=== PATIENT | female | born 1950 | race Caucasian/White ===

== ENCOUNTER 2018-03-22 10:59 | Emergency (ER) | payer OTHER ==
[~2018-03-22] VITALS: Ht 157.5 cm; Wt 49.9 kg
[~2018-03-22 10:59] MED LIST: CEPH-37 PO; HYDR-2601 PO; LEVO25TA6 PO; PROP60CA34 PO; [UNRECOGNIZED DRUG - CODE] EX
[2018-03-22] MEDS ORDERED: LORazepam 0.5 MG TAB PO ONE (11:30)
[2018-03-22 11:40] LABS: Basophils # (auto) 0.1 uL; Basophils % (auto) 0.8 % (0.0-2.0); Eosinophils # (auto) 0.5 uL; Eosinophils % (auto) 6.6 % (0.0-7.0); Hematocrit 46.5 % (36.0-46.0); Hemoglobin 15.1 g/dL (12.2-16.2); Lymphocytes # (auto) 1.7 uL; Lymphocytes % (auto) 23.4 % (10.0-50.0); Mean Corpuscular Hemoglobin 30.3 pg (28.0-32.0); Mean Corpuscular Hgb Conc. 32.5 g/dL (32.0-36.0); Mean Corpuscular Volume 93.4 fL (80.0-100.0); Monocytes # (auto) 0.6 uL; Monocytes % (auto) 8.5 % (0.0-12.0); Neutrophils # (auto) 4.5 uL; Neutrophils % (auto) 60.7 % (37.0-80.0); Platelet Count (auto) 169 10^3/uL (140-450); Red Blood Cells 4.98 10^6/uL (4.0-5.20); Red Cell Distribution Width 13.8 % (11.8-14.3); White Blood Cell 7.4 10^3/uL (4.4-10.8)
[2018-03-22 12:00] LABS: Albumin 3.8 g/dL (3.4-5.0); Calcium 8.4 mg/dL (8.5-10.1); Potassium 4.3 mmol/L (3.5-5.1)
[2018-03-22 12:05] LABS: Bilirubin, Total 1.4 mg/dL (0.2-1.0); Total Protein 7.2 g/dL (6.4-8.2)
[2018-03-22 12:09] VITALS: BP 132/66
[2018-03-22 12:18] LABS: Urine Bacteria NONE SEEN /hpf (None Seen); Urine Blood Negative /uL (Negative); Urine Mucus FEW (None Seen); Urine Specific Gravity 1.028 (1.001-1.035); Urine WBC 3 /hpf (0 - 5)
== END 2018-03-22 13:34 | disposition home or self-care (01) ==
LOC: ER 11:04
DX: F41.9 Anxiety disorder, unspecified (principal); I10 Essential (primary) hypertension; Z87.891 Personal history of nicotine dependence; Z90.49 Acquired absence of other specified parts of digestive tract; Z90.710 Acquired absence of both cervix and uterus
CPT/HCPCS: 36415; 71046; 80053; 81001; 84484; 85025; 93005

== ENCOUNTER 2019-01-09 21:52 | Emergency (ER) | payer MEDICARE, OTHER, MEDICAID ==
[~2019-01-09] VITALS: Ht 157.5 cm; Wt 49.9 kg
[2019-01-09 22:27] LABS: Basophils # (auto) 0.1 uL; Basophils % (auto) 1.4 % (0.0-2.0); Eosinophils # (auto) 0.6 uL; Eosinophils % (auto) 7.1 % (0.0-7.0); Hematocrit 44.5 % (36.0-46.0); Hemoglobin 15.1 g/dL (12.2-16.2); Lymphocytes % (auto) 34.9 % (10.0-50.0); Mean Corpuscular Hemoglobin 30.9 pg (28.0-32.0); Mean Corpuscular Hgb Conc. 34.1 g/dL (32.0-36.0); Mean Corpuscular Volume 90.6 fL (80.0-100.0); Monocytes # (auto) 0.9 uL; Monocytes % (auto) 10.2 % (0.0-12.0); Neutrophils % (auto) 46.4 % (37.0-80.0); Nucleated Red Blood Cells % 0.2 %; Platelet Count (auto) 156 10^3/uL (140-450); Red Blood Cells 4.91 10^6/uL (4.0-5.20); White Blood Cell 8.6 10^3/uL (4.4-10.8)
[2019-01-09 22:43] LABS: Albumin 4.3 g/dL (3.4-5.0); BUN/Creatinine Ratio 17.1; Calcium 8.9 mg/dL (8.5-10.1); Magnesium 2.3 mg/dL (1.6-2.6); Potassium 4.1 mmol/L (3.5-5.1)
[2019-01-09 22:48] LABS: Bilirubin, Total 1.3 mg/dL (0.2-1.0); Total Protein 7.4 g/dL (6.4-8.2)
[2019-01-10] MEDS ORDERED: PROPRANOLOL HCL 20 MG TAB PO ONE ×2 (00:15)
[2019-01-10] MEDS ORDERED: CEPHALEXIN 250 MG CAP PO ONE (00:30)
[2019-01-10 02:40] VITALS: BP 115/75
== END 2019-01-10 02:40 | disposition left against medical advice (07) ==
LOC: ER 22:01
DX: R07.9 Chest pain, unspecified (principal); F41.9 Anxiety disorder, unspecified; I10 Essential (primary) hypertension; E07.9 Disorder of thyroid, unspecified; Z98.51 Tubal ligation status; Z88.1 Allergy status to other antibiotic agents; Z88.5 Allergy status to narcotic agent; Z88.0 Allergy status to penicillin; Z79.899 Other long term (current) drug therapy; Z90.49 Acquired absence of other specified parts of digestive tract; Z90.710 Acquired absence of both cervix and uterus; Z53.29 Procedure and treatment not carried out because of patient's decision for other reasons
CPT/HCPCS: 36415; 71045; 80053; 83735; 83880; 84443; 84484; 85025; 93005

== ENCOUNTER → 2021-07-17 | Outpatient (CLI) | payer OTHER, MEDICAID, MEDICARE ==
[2021-07-17 10:01] LABS: Basophils # (auto) 0.1 10 ^3/uL (0-0.2); Eosinophils # (auto) 0.9 10 ^3/uL (0-0.8); Eosinophils % (auto) 9.7 % (0.0-7.0); Hematocrit 44.4 % (36.0-46.0); Hemoglobin 14.8 g/dL (12.2-16.2); Lymphocytes % (auto) 21.8 % (10.0-50.0); Mean Corpuscular Hemoglobin 30.8 pg (28.0-32.0); Mean Corpuscular Hgb Conc. 33.2 g/dL (32.0-36.0); Mean Corpuscular Volume 92.8 fL (80.0-100.0); Monocytes % (auto) 10.9 % (0.0-12.0); Neutrophils # (auto) 5.2 10 ^3/uL (1.6-8.6); Neutrophils % (auto) 56.6 % (37.0-80.0); Nucleated Red Blood Cells % 0.4 %; Red Blood Cells 4.79 10^6/uL (4.0-5.20); Red Cell Distribution Width 13.5 % (11.8-14.3); White Blood Cell 9.1 10^3/uL (4.4-10.8)
[2021-07-17 10:39] LABS: Albumin 3.6 g/dL (3.4-5.0); Potassium 4.7 mmol/L (3.5-5.1)
[2021-07-17 10:47] LABS: BUN/Creatinine Ratio 12.9; Bilirubin, Total 1.5 mg/dL (0.2-1.0); Total Protein 7.1 g/dL (6.4-8.2)
[2021-07-17 15:22] LABS: Free T3 2.21 pg/mL (2.3-4.2)
== END | disposition home or self-care (01) ==
LOC: LAB 09:25
PROVIDERS: ATTEND Internal Medicine
DX: I10 Essential (primary) hypertension (principal); E03.9 Hypothyroidism, unspecified; R13.10 Dysphagia, unspecified
CPT/HCPCS: 36415; 80053; 80061; 84439; 84443; 84481; 85025

== ENCOUNTER 2022-05-07 13:54 | Emergency (ER) | payer OTHER, MEDICARE, MEDICAID ==
[~2022-05-07] VITALS: Ht 160 cm; Wt 53.0 kg
[2022-05-07 14:30] VITALS: BP 155/89
[2022-05-07 16:04] LABS: Basophils # (auto) 0.1 10 ^3/uL (0-0.2); Eosinophils # (auto) 0.5 10 ^3/uL (0-0.8); Eosinophils % (auto) 5.3 % (0.0-7.0); Hematocrit 48.2 % (36.0-46.0); Lymphocytes # (auto) 2.6 10 ^3/uL (0.4-5.4); Lymphocytes % (auto) 28.3 % (10.0-50.0); Mean Corpuscular Hemoglobin 31.3 pg (28.0-32.0); Mean Corpuscular Hgb Conc. 33.1 g/dL (32.0-36.0); Mean Corpuscular Volume 94.5 fL (80.0-100.0); Monocytes # (auto) 0.8 10 ^3/uL (0-1.3); Monocytes % (auto) 8.6 % (0.0-12.0); Neutrophils # (auto) 5.1 10 ^3/uL (1.6-8.6); Neutrophils % (auto) 56.8 % (37.0-80.0); Nucleated Red Blood Cells % 0.5 %; Red Cell Distribution Width 13.8 % (11.8-14.3)
[2022-05-07 16:18] LABS: Calcium 9.6 mg/dL (8.5-10.1); Potassium 4.8 mmol/L (3.5-5.1)
[2022-05-07 16:28] LABS: BUN/Creatinine Ratio 18.3
[2022-05-07] MEDS ORDERED: IOHEXOL 350 MG/ML 100ML IJ ONE (16:35)
== END 2022-05-07 18:30 | disposition left against medical advice (07) ==
LOC: ER 13:54
DX: E03.9 Hypothyroidism, unspecified (principal); I10 Essential (primary) hypertension; Z90.49 Acquired absence of other specified parts of digestive tract; Z90.710 Acquired absence of both cervix and uterus; Z87.891 Personal history of nicotine dependence; Z79.899 Other long term (current) drug therapy; Z88.0 Allergy status to penicillin; Z88.1 Allergy status to other antibiotic agents; Z88.5 Allergy status to narcotic agent
CPT/HCPCS: 36415; 70491; 80048; 84439; 84443; 85025; 99285; Q9967

== ENCOUNTER 2022-05-18 10:58 | Emergency (ER) | payer OTHER, MEDICARE, MEDICAID ==
[~2022-05-18] VITALS: Ht 160 cm; Wt 54.3 kg
[2022-05-18 12:16] VITALS: BP 134/89
== END 2022-05-18 14:18 | disposition home or self-care (01) ==
LOC: ER 10:58
DX: I10 Essential (primary) hypertension (principal); Z71.89 Other specified counseling; Z88.5 Allergy status to narcotic agent; Z88.0 Allergy status to penicillin; Z88.1 Allergy status to other antibiotic agents; Z79.899 Other long term (current) drug therapy; Z90.710 Acquired absence of both cervix and uterus; Z90.49 Acquired absence of other specified parts of digestive tract; Z98.890 Other specified postprocedural states

== ENCOUNTER 2022-05-25 13:40 | Emergency (ER) | payer MEDICARE, OTHER, MEDICAID ==
[~2022-05-25] VITALS: Ht 160 cm; Wt 53.0 kg
[2022-05-25 15:12] LABS: Albumin 4.1 g/dL (3.4-5.0); Calcium 8.8 mg/dL (8.5-10.1); Potassium 4.5 mmol/L (3.5-5.1)
[2022-05-25 15:15] LABS: BUN/Creatinine Ratio 16.7; Bilirubin, Total 1.5 mg/dL (0.2-1.0); Total Protein 7.7 g/dL (6.4-8.2)
[2022-05-25 15:23] LABS: Basophils # (auto) 0.1 10 ^3/uL (0-0.2); Basophils % (auto) 1.2 % (0.0-2.0); Eosinophils # (auto) 0.9 10 ^3/uL (0-0.8); Eosinophils % (auto) 10.6 % (0.0-7.0); Hematocrit 44.3 % (36.0-46.0); Hemoglobin 15.5 g/dL (12.2-16.2); Lymphocytes # (auto) 2.2 10 ^3/uL (0.4-5.4); Lymphocytes % (auto) 26.8 % (10.0-50.0); Mean Corpuscular Hemoglobin 32.4 pg (28.0-32.0); Mean Corpuscular Volume 92.6 fL (80.0-100.0); Monocytes # (auto) 0.7 10 ^3/uL (0-1.3); Monocytes % (auto) 7.9 % (0.0-12.0); Neutrophils # (auto) 4.4 10 ^3/uL (1.6-8.6); Neutrophils % (auto) 53.5 % (37.0-80.0); Nucleated Red Blood Cells % 0.2 %; Red Blood Cells 4.78 10^6/uL (4.0-5.20); Red Cell Distribution Width 13.8 % (11.8-14.3); White Blood Cell 8.2 10^3/uL (4.4-10.8)
[2022-05-25 15:57] VITALS: BP 129/79
== END 2022-05-25 15:59 | disposition home or self-care (01) ==
LOC: ER 13:40
DX: E03.9 Hypothyroidism, unspecified (principal); I10 Essential (primary) hypertension; Z90.49 Acquired absence of other specified parts of digestive tract; Z90.710 Acquired absence of both cervix and uterus; Z87.891 Personal history of nicotine dependence; Z79.899 Other long term (current) drug therapy; Z88.0 Allergy status to penicillin; Z88.1 Allergy status to other antibiotic agents; Z88.8 Allergy status to other drugs, medicaments and biological substances
CPT/HCPCS: 36415; 80053; 84443; 85025

== ENCOUNTER → 2022-06-04 | Outpatient (CLI) | payer MEDICARE, OTHER, MEDICAID ==
[2022-06-04 15:00] LABS: Cholesterol 226 mg/dL (< 200); Folate (Folic Acid) 11.2 ng/mL (5.38-24); HDL Cholesterol 49 mg/dL (40-59); LDL Cholesterol 161 mg/dL (< 100); Triglycerides 133 mg/dL (< 150); Urine Bacteria FEW /hpf (None Seen); Urine Blood Negative /uL (Negative); Urine Mucus FEW (None Seen); Urine Specific Gravity 1.028 (1.001-1.035); Urine WBC 9 /hpf (0 - 5)
[2022-06-05 06:23] LABS: RPR Non Reactive (Non Reactive)
== END | disposition home or self-care (01) ==
LOC: LAB 13:29
PROVIDERS: ATTEND Internal Medicine
DX: I10 Essential (primary) hypertension (principal); N39.0 Urinary tract infection, site not specified; E03.9 Hypothyroidism, unspecified
CPT/HCPCS: 36415; 80061; 81001; 82607; 82746; 86592; 87086

== ENCOUNTER 2022-08-08 10:44 | Emergency (ER) | payer MEDICARE, OTHER, MEDICAID ==
[~2022-08-08] VITALS: Ht 160 cm; Wt 53.8 kg
[2022-08-08 11:52] LABS: Basophils # (auto) 0 10 ^3/uL (0-0.2); Basophils % (auto) 0.3 % (0.0-2.0); Eosinophils # (auto) 0.6 10 ^3/uL (0-0.8); Eosinophils % (auto) 5.9 % (0.0-7.0); Hematocrit 44.6 % (36.0-46.0); Hemoglobin 14.9 g/dL (12.2-16.2); Lymphocytes # (auto) 2.7 10 ^3/uL (0.4-5.4); Lymphocytes % (auto) 27.7 % (10.0-50.0); Mean Corpuscular Hemoglobin 31.1 pg (28.0-32.0); Mean Corpuscular Hgb Conc. 33.4 g/dL (32.0-36.0); Mean Corpuscular Volume 93.1 fL (80.0-100.0); Monocytes # (auto) 0.8 10 ^3/uL (0-1.3); Neutrophils # (auto) 5.7 10 ^3/uL (1.6-8.6); Neutrophils % (auto) 58.1 % (37.0-80.0); Nucleated Red Blood Cells % 0.1 %; Red Blood Cells 4.79 10^6/uL (4.0-5.20); Red Cell Distribution Width 13.5 % (11.8-14.3); White Blood Cell 9.7 10^3/uL (4.4-10.8)
[2022-08-08 12:21] LABS: Calcium 8.9 mg/dL (8.5-10.1); Potassium 4.3 mmol/L (3.5-5.1)
[2022-08-08 12:24] LABS: BUN/Creatinine Ratio 13.4 (10.0-20.0); Bilirubin, Total 1.4 mg/dL (0.2-1.0); Total Protein 7.3 g/dL (6.4-8.2)
[2022-08-08 12:54] LABS: Urine Bacteria NONE SEEN /hpf (None Seen); Urine Blood Negative /uL (Negative); Urine Mucus FEW (None Seen); Urine Specific Gravity 1.028 (1.001-1.035); Urine WBC 4 /hpf (0 - 5)
[2022-08-08 13:24] VITALS: BP 108/75
[2022-08-08] MEDS ORDERED: IOHEXOL 350 MG/ML 100ML IJ ONE (14:07)
[2022-08-08] MEDS ORDERED: DexAMETHasone SOD PHOS 10MG/1ML VIAL INJ IV ONE (15:00)
== END 2022-08-08 23:15 | disposition left against medical advice (07) ==
LOC: ER 10:44
DX: R22.1 Localized swelling, mass and lump, neck (principal); R07.89 Other chest pain; I10 Essential (primary) hypertension; E03.9 Hypothyroidism, unspecified; Z90.49 Acquired absence of other specified parts of digestive tract; Z90.710 Acquired absence of both cervix and uterus; Z87.891 Personal history of nicotine dependence; Z79.899 Other long term (current) drug therapy; Z88.0 Allergy status to penicillin; Z88.1 Allergy status to other antibiotic agents; Z88.5 Allergy status to narcotic agent
CPT/HCPCS: 36415; 70491; 71045; 80053; 81001; 83880; 84484; 85025; 85379; 96374; 99285; J1100; Q9967

== ENCOUNTER 2022-08-17 10:24 | Emergency (ER) | payer MEDICARE, OTHER, MEDICAID ==
[~2022-08-17] VITALS: Ht 160 cm; Wt 53.8 kg
[2022-08-17 12:48] VITALS: BP 116/74
== END 2022-08-17 13:36 | disposition home or self-care (01) ==
LOC: ER 10:24
DX: R13.10 Dysphagia, unspecified (principal); I10 Essential (primary) hypertension; Z90.49 Acquired absence of other specified parts of digestive tract; Z90.710 Acquired absence of both cervix and uterus; Z87.891 Personal history of nicotine dependence; Z79.899 Other long term (current) drug therapy; Z88.0 Allergy status to penicillin; Z88.1 Allergy status to other antibiotic agents; Z88.5 Allergy status to narcotic agent

== ENCOUNTER 2022-08-18 12:19 | Emergency (ER) | payer MEDICARE, OTHER, MEDICAID ==
[~2022-08-18] VITALS: Ht 160 cm; Wt 51.3 kg
[2022-08-18 12:38] VITALS: BP 109/62
== END 2022-08-18 16:32 | disposition left against medical advice (07) ==
LOC: ER 12:19
DX: J02.9 Acute pharyngitis, unspecified (principal); Z53.21 Procedure and treatment not carried out due to patient leaving prior to being seen by health care provider

== ENCOUNTER → 2022-09-16 | Outpatient (CLI) | payer MEDICARE, MEDICAID ==
[2022-09-16 15:55] LABS: Urine Bacteria NONE SEEN /hpf (None Seen); Urine Blood Negative /uL (Negative); Urine Specific Gravity 1.019 (1.001-1.035); Urine WBC 1 /hpf (0 - 5)
== END | disposition home or self-care (01) ==
LOC: LAB 15:29
PROVIDERS: ATTEND Nurse Practitioner
DX: N39.0 Urinary tract infection, site not specified (principal)
CPT/HCPCS: 81001; 87086

== ENCOUNTER → 2022-10-12 | Outpatient (CLI) | payer OTHER, MEDICAID | END | disposition home or self-care (01) | LOC: LAB 15:41 | PROVIDERS: ATTEND Internal Medicine | DX: R13.10 Dysphagia, unspecified (principal) | CPT/HCPCS: 36415; 82565; 84520 ==

== ENCOUNTER 2022-11-05 09:25 | Emergency (ER) | payer MEDICARE, OTHER, MEDICAID ==
[~2022-11-05] VITALS: Ht 160 cm; Wt 50.8 kg
[2022-11-05 09:42] VITALS: BP 114/87; PULSE 68; RESP 18; TEMP 97.4; O2SAT 98
[2022-11-05 10:39] LABS: Basophils # (auto) 0.1 10 ^3/uL (0-0.2); Eosinophils # (auto) 0.6 10 ^3/uL (0-0.8); Eosinophils % (auto) 7.2 % (0.0-7.0); Hemoglobin 14.2 g/dL (12.2-16.2); Lymphocytes # (auto) 1.8 10 ^3/uL (0.4-5.4); Lymphocytes % (auto) 23.7 % (10.0-50.0); Mean Corpuscular Hemoglobin 30.9 pg (28.0-32.0); Mean Corpuscular Volume 93.5 fL (80.0-100.0); Monocytes # (auto) 0.6 10 ^3/uL (0-1.3); Monocytes % (auto) 7.4 % (0.0-12.0); Neutrophils # (auto) 4.7 10 ^3/uL (1.6-8.6); Neutrophils % (auto) 60.7 % (37.0-80.0); Nucleated Red Blood Cells % 0.1 %; Red Cell Distribution Width 13.3 % (11.8-14.3); White Blood Cell 7.7 10^3/uL (4.4-10.8)
[2022-11-05 10:58] LABS: Albumin 3.7 g/dL (3.4-5.0); Calcium 9.1 mg/dL (8.5-10.1); Potassium 4.6 mmol/L (3.5-5.1)
[2022-11-05 11:01] LABS: BUN/Creatinine Ratio 14.5 (10.0-20.0); Total Protein 7.2 g/dL (6.4-8.2)
[2022-11-05] MEDS ORDERED: LEV50T PO (11:41)
== END 2022-11-05 11:42 | disposition home or self-care (01) ==
LOC: ER 09:25
DX: E03.9 Hypothyroidism, unspecified (principal); E04.9 Nontoxic goiter, unspecified; I10 Essential (primary) hypertension; F17.210 Nicotine dependence, cigarettes, uncomplicated; Z90.49 Acquired absence of other specified parts of digestive tract; Z90.710 Acquired absence of both cervix and uterus; Z98.890 Other specified postprocedural states; Z88.0 Allergy status to penicillin; Z88.1 Allergy status to other antibiotic agents; Z88.5 Allergy status to narcotic agent; Z79.899 Other long term (current) drug therapy; Z79.1 Long term (current) use of non-steroidal anti-inflammatories (NSAID)
CPT/HCPCS: 36415; 76536; 80053; 84439; 84443; 85025

== ENCOUNTER 2023-01-22 10:18 | Emergency (ER) | payer MEDICARE, OTHER, MEDICAID ==
[~2023-01-22] VITALS: Ht 160 cm; Wt 47.5 kg
[~2023-01-22 10:18] MED LIST changes: +LEV50T PO
[2023-01-22 10:38] VITALS: BP 121/77; PULSE 66; RESP 16; O2SAT 99
[2023-01-22 11:33] LABS: Basophils # (auto) 0.1 10 ^3/uL (0-0.2); Basophils % (auto) 0.9 % (0.0-2.0); Eosinophils # (auto) 0.4 10 ^3/uL (0-0.8); Eosinophils % (auto) 4.4 % (0.0-7.0); Hematocrit 48.4 % (36.0-46.0); Hemoglobin 15.9 g/dL (12.2-16.2); Lymphocytes # (auto) 2.2 10 ^3/uL (0.4-5.4); Lymphocytes % (auto) 26.2 % (10.0-50.0); Mean Corpuscular Hemoglobin 31.3 pg (28.0-32.0); Mean Corpuscular Hgb Conc. 32.8 g/dL (32.0-36.0); Mean Corpuscular Volume 95.3 fL (80.0-100.0); Monocytes # (auto) 0.8 10 ^3/uL (0-1.3); Monocytes % (auto) 9.4 % (0.0-12.0); Neutrophils # (auto) 4.9 10 ^3/uL (1.6-8.6); Neutrophils % (auto) 59.1 % (37.0-80.0); Nucleated Red Blood Cells % 0.2 %; Red Blood Cells 5.08 10^6/uL (4.0-5.20); Red Cell Distribution Width 13.3 % (11.8-14.3); White Blood Cell 8.3 10^3/uL (4.4-10.8)
[2023-01-22 11:51] LABS: Alanine Aminotransferase 10 U/L (7-40); Albumin 4.3 g/dL (3.2-4.8); Alkaline Phosphatase 60 U/L (46-116); Anion Gap 5 (5-15); Aspartate Aminotransferase 20 U/L (13-40); Blood Urea Nitrogen 9 mg/dL (9-23); Calcium 9.6 mg/dL (8.5-10.1); Carbon Dioxide 29 mmol/L (20-30); Chloride 107 mmol/L (98-107); Glucose 82 mg/dL (74-106); Potassium 5.2 mmol/L (3.5-5.1); Sodium 141 mmol/L (136-145)
[2023-01-22 11:52] LABS: Bilirubin, Total 1.7 mg/dL (0.2-1.0); Total Protein 7.2 g/dL (5.7-8.2)
[2023-01-22] MEDS ORDERED: IOHEXOL 350 MG/ML 100ML IJ ONE (14:00)
== END 2023-01-22 14:39 | disposition left against medical advice (07) ==
LOC: ER 10:18
DX: R06.02 Shortness of breath (principal); E87.5 Hyperkalemia; R79.89 Other specified abnormal findings of blood chemistry; I10 Essential (primary) hypertension; Z90.49 Acquired absence of other specified parts of digestive tract; Z90.710 Acquired absence of both cervix and uterus; Z98.51 Tubal ligation status; Z87.440 Personal history of urinary (tract) infections; Z87.891 Personal history of nicotine dependence; Z88.1 Allergy status to other antibiotic agents; Z88.0 Allergy status to penicillin; Z88.8 Allergy status to other drugs, medicaments and biological substances
CPT/HCPCS: 36415; 71046; 76536; 80053; 83880; 84484; 85025; 85379

== ENCOUNTER 2024-11-25 11:09 | Emergency (ER) | payer MEDICARE, OTHER, MEDICAID ==
[~2024-11-25] VITALS: Ht 160 cm; Wt 51.9 kg
[~2024-11-25 11:09] MED LIST changes: -LEV50T PO; +LEVO-848 PO
--- NOTE | 2024-11-25 12:00 | ED.PDOC ---
General HPI Comments A 74-YEAR-OLD FEMALE PRESENTS TO THE ED WITH THE C/C OF SUSPECTED BLADDER INFECTION. PATIENT REPORTS EXPERIENCING ASSOCIATED SYMPTOMS OF BURNING URINATION, URGENCY, FREQUENCY, AND BACK PAIN FOR 3 DAYS. PATIENT HAS NO FURTHER COMPLAINTS AT THIS TIME. PATIENT OTHERWISE DENIES FURTHER ASSOCIATED SYMPTOMS OF NAUSEA, VOMITING, DIARRHEA, DYSURIA, HEMATURIA, OR ABDOMINAL PAIN. PATIENT IS ALERT, ORIENTED X 4, AND HAS STEADY GAIT. Chief Complaint: Urinary Time Seen by MD: 11:27 Primary Care Provider: none Reviewed notes: Nurses Notes, Medications, Allergies Allergies: Coded Allergies: Erythromycin (Verified Allergy, Unknown, 12/13/14) Codeine (Verified Adverse Reaction, Severe, 08/01/13) Gentamicin (Verified Adverse Reaction, Severe, 08/01/13) Penicillins (Verified Adverse Reaction, Severe, 08/01/13) Streptomycin (Verified Adverse Reaction, Severe, 08/01/13) Home Meds Active Scripts Docusate Sodium (Colace) 100 Mg Cap, 1 CAP PO BID, #30 CAP Prov:FERN MCCRARY 11/25/24 Cephalexin Monohydrate (Cephalexin) 500 Mg Cap, 1 CAP PO TID, #21 CAP Prov:FERN MCCRARY 11/25/24 Levothyroxine Sodium (SYNTHROID TABLET) 50 Mcg Tb, 1 TAB PO DAILY, #30 TAB Prov:FERN MCCRARY 11/05/22 Reported Medications Clotrimazole (Topical) (CLOTRIMAZOLE ANTIFUNGAL) 1 %/F Cre, 1 % EX, CRE 08/02/13 Hydrocodone-Acetaminophen (Hydrocodone/Acetaminophen) 1 Tab Tab, 1 TAB PO, TAB 08/02/13 Cephalexin (Keflex) 500 Mg Cap, 500 MG PO QID, CAP 08/02/13 Levothyroxine Sodium (Levothyroxine Sodium) 25 Mcg Tab, 0.05 MCG PO DAILY, TAB 08/02/13 Propranolol Hcl (Inderal La) 60 Mg Cap, 20 MG PO TID, CAP 08/02/13 Information Source: Patient Mode of Arrival: Ambulatory Severity: Moderate Timing: Days Duration: Since onset, Days Prehospital treatment: None Symptoms: Dysuria, Frequency, Urgency, Other (BURNING ) History of: None Location: Other (BACK ) associated signs and symptoms: Back Pain, Dysuria, Frequency, Urgency, Other (BURNING ) Past Medical History PAST MEDICAL HISTORY: HTN, Thyroid, UTI'S Surgical History: BTL, Cholecystectomy, Hernia Repair, Hysterectomy BOTTLE P[employer]ING [employer]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 [employer]ER 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: 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 History Family History Family History: Reviewed,noncontributory to illness Social History Smoker: Non-Smoker, Quit Greater Than 1 Year Alcohol: Denies ETOH Use Drugs: Denies Drug Use Lives In: Home Constitutional: denies: chills, diaphoresis, fatigue, fever, malaise, sweats, weakness, others EENTM: denies: blurred vision, double vision, ear bleeding, ear discharge, ear drainage, ear pain, ear ringing, eye pain, eye redness, hearing loss, mouth pain, mouth swelling, nasal discharge, nose bleeding, nose congestion, nose pain, photophobia, tearing, throat pain, throat swelling, voice changes, others Respiratory: denies: cough, hemoptysis, orthopnea, SOB at rest, shortness of breath, SOB with excertion, stridor, wheezing, others Cardiovascular: denies: chest pain, dizzy spells, diaphoresis, Dyspnea on exertion, edema, irregular heart beat, left arm pain, lightheadedness, palpitations, PND, syncope, others Gastrointestinal: denies: abdomen distended, abdominal pain, blood streaked bowels, constipated, diarrhea, dysphagia, difficulty swallowing, hematemesis, melena, nausea, poor appetite, poor fluid intake, rectal bleeding, rectal pain, vomiting, others Genitourinary: reports: burning, dysuria, frequency, urgency; denies: abnormal vagina bleeding, dyspareunia, flank pain, hematuria, incontinence, pain, , vagina discharge, others Neurological: denies: dizziness, fainting, headache, left sided numbness, left sided weakness, numbness, paresthesia, pre-existing deficit, right sided numbness, right sided weakness, seizure, speech problems, tingling, tremors, weakness, others Musculoskeletal: reports: back pain, muscle pain; denies: gout, joint pain, joint swelling, muscle stiffness, neck pain, others Integumetry: denies: bruises, change in color, change in hair/nails, dryness, laceration, lesions, lumps, rash, wounds, others Allergic/Immunocompromised: denies: Difficulty Healing, Frequent Infections, Hives, Itching, others Hematologic/Lymphatic: denies: anemia, blood clots, easy bleeding, easy bruising, swollen glands, others Endocrine: denies: excessive hunger, excessive sweating, excessive thirst, excessive urination, flushing, intolerance to cold, intolerance to heat, unexplained weight gain, unexplained weight loss, others Psychiatric: denies: anxiety, bipolar disorder, depression, hopeless, panic d isorder, schizophrenia, sleepless, suicidal, others All Other Systems: Reviewed and Negative Physical Exam General Appearance: No Apparent Distress, Normal HEENT: Normal ENT Inspection, PERRL/EOMI, Pharynx Normal, TMs Normal Neck: Full Range of Motion, Non-Tender, Normal, Normal Inspection Respiratory: Chest Non-Tender, Lungs Clear, No Accessory Muscle Use, No Respiratory Distress, Normal Breath Sounds Cardiovascular: No Edema, No JVD, No Murmur, No Gallop, Normal Peripheral Pulses, Regular Rate/Rhythm Breast Exam: Deferred Gastrointestinal: No Organomegaly, Non Tender, No Pulsatile Mass, Normal Bowel Sounds, Soft Genitalia: Deferred Pelvic: Deferred Rectal: Deferred Extremities: No calf tenderness, Normal capillary refill, Normal inspection, Normal range of motion, Non-tender, No pedal edema Musculoskeletal : Location: Bilateral Extremity Location: Back Apperance: Tenderness (LOWER BACK, NO BONY TENDERNESS, SWELLING AND DEFORMITY, NO CVA TENDERNESS. ) Neurologic: Alert, cell tuber hand II-XII nml as Tested, No Motor Deficits, Normal Affect, Normal Mood, No Sensory Deficits Cerebellar Function: Normal Reflexes: Normal Skin: Dry, Normal Color, Warm Peripheral Pulses: 2+ carotid (R), 2+ carotid (L), 2+ dorsalis pedis (R), 2+ dorsalis pedis (L) Lymphatic: No Adenopathy Was a procedure done? Was a procedure done?: No Differential Diagnosis Kidney stone (Female): N/A Urinary Problem (Female): UTI, Vaginitis X-Ray, Labs, Meds, VS Vital Signs Date Time Temp Pulse Resp B/P (MAP) Pulse Ox O2 Delivery O2 Flow Rate FiO2 11/25/24 11:10 97.6 87 18 118/64 96 97.6 Lab Test 11/25/24 12:54 11/25/24 11:36 Range/Units White Blood Count 7.1 4.4-10.8 10^3/uL Red Blood Count 5.15 4.0-5.20 10^6/uL Hemoglobin 15.2 12.2-16.2 g/dL Hematocrit 45.7 36.0-46.0 % Mean Corpuscular Volume 88.8 80.0-100.0 fL Mean Corpuscular Hemoglobin 29.5 28.0-32.0 pg Mean Corpuscular Hemoglobin Concent 33.3 32.0-36.0 g/dL Red Cell Distribution Width 14.5 H 11.8-14.3 % Platelet Count 162 140-450 10^3/uL Mean Platelet Volume 9.2 6.9-10.8 fL Neutrophils (%) (Auto) 61.2 37.0-80.0 % Lymphocytes (%) (Auto) 28.1 10.0-50.0 % Monocytes (%) (Auto) 6.6 0.0-12.0 % Eosinophils (%) (Auto) 3.6 0.0-7.0 % Basophils (%) (Auto) 0.5 0.0-2.0 % Neutrophils # (Auto) 4.4 1.6-8.6 10 ^3/uL Lymphocytes # (Auto) 2.0 0.4-5.4 10 ^3/uL Monocytes # (Auto) 0.5 0-1.3 10 ^3/uL Eosinophils # (Auto) 0.3 0-0.8 10 ^3/uL Basophils # (Auto) 0 0-0.2 10 ^3/uL Nucleated Red Blood Cells 0.1 % Sodium Level 143 136-145 mmol/L Potassium Level 4.6 3.5-5.1 mmol/L Chloride Level 106 98-107 mmol/L Carbon Dioxide Level 32 H 20-31 mmol/L Anion Gap 5 5-15 Blood Urea Nitrogen 12 9-23 mg/dL Creatinine 0.78 0.550-1.02 mg/dL Glomerular Filtration Rate Calc 80 >90 mL/min BUN/Creatinine Ratio 15.4 10.0-20.0 Serum Glucose 90 74-106 mg/dL Calcium Level 9.5 8.7-10.4 mg/dL Thyroid Stimulating Hormone (TSH) Pending Urine Color Yellow Yellow Urine Clarity Clear Clear Urine pH 7.0 5.0-9.0 Urine Specific Sharples 1.020 1.001-1.035 Urine Protein Negative Negative Urine Ketones Negative Negative Urine Blood Negative Negative /uL Urine Nitrite Negative Negative Urine Bilirubin Negative Negative Urine Urobilinogen Normal Negative mg/dL Urine Leukocyte Esterase Trace Negative /uL Urine RBC 1 0 - 4 /hpf Urine Microscopic WBC 3 0-5 /HPF Urine Squamous Epithelial Cells Few <5 /hpf Urine Bacteria Few H None Seen /hpf Urine Mucus Few None Seen Urine Glucose Normal Normal mg/dL [facility] [id number] [facility] [id number] Ph: [phone] DIAGNOSTIC IMAGING Diagnostic Imaging Report : [id number] Signed PATIENT: JANE ESCUDERO ACCT: [id number] UNIT: [id number] : 1950 LOC: ER ROOM / BED: / AGE / SEX: 74 / F ADM STATUS: REG ER SERVICE [id number] ORDERING PHYSICIAN: FERN MCCRARY PROCEDURE(s): ABPL - CT AB PEL WO CON-NO ORAL OR IV REASON: UTI SYMPTOMS ORDER NUMBER(s): [id number], ACCESSION NUMBER(s): [id number] CLINICAL HISTORY: UTI SYMPTOMS TECHNIQUE: CT of the abdomen and pelvis was performed without IV contrast. This exam was performed according to our departmental dose optimization program. Up-to-date CT equipment and radiation dose reduction techniques are utilized as appropriate. CTDI 6 DLP 281 COMPARISON: None FINDINGS: Abdomen/Pelvis: The spleen, pancreas, adrenal glands, liver, and kidneys are grossly unremarkable. The gallbladder and uterus are absent. The bladder is not well distended and therefore not well evaluated. The abdominal aorta is normal in course and caliber. There are mild atherosclerotic calcifications. There is no free intraperitoneal air or fluid. There is no enlarged abdominal pelvic lymph node. There is no bowel wall thickening or dilatation. There has been right colon surgery. There has been partial transverse colon resection with reanastomosis. There is a moderate sized fat containing right paramedian ventral hernia centered just above the umbilicus. There is mild colonic diverticulosis. There is a moderate amount of stool in the colon. Other: The imaged lower thorax demonstrates mild camille lower lung atelectasis and or scar bilaterally arkable. No acute osseous abnormality is evident. Impression: No acute noncontrast CT abnormality of the abdomen/pelvis. Constipation. Previous colonic receptions. Hysterectomy. Cholycystectomy. X-Ray, Labs, Meds, VS Comment EXTERNAL MEDICAL RECORDS REVIEWED: [NONE] INDEPENDENT HISTORIANS: [NONE] SOCIAL DETERMINANTS OF HEALTH: [NONE] LABS ORDERED: UA REVIEWED AND INTERPRETED RESULTS: IMAGING ORDERED: NONE TREATMENTS ORDERED: NONE PROCEDURES PERFORMED: NONE CRITICAL CARE TIME: NONE I HAVE DISCUSSED THE PATIENT WITH THE ATTENDING PHYSICIAN DR. PASCUAL AND SHE AGREES WITH THE PATIENT'S PLAN OF CARE AND DISPOSITION. BASED ON HISTORY OF PRESENT ILLNESS, AND PHYSICAL EXAM, PATIENT WILL BE DISCHARGED HOME. DISCUSSED PLAN FOR DISCHARGE HOME WITH RX [KEFLEX AND COLACE]. MEDICATION WARNINGS GIVEN. SHARED DECISION MAKING: DISCUSSED WITH PATIENT THAT THEIR WORKUP WAS NORMAL. PATIENT INSTRUCTED TO FOLLOW UP WITH PRIMARY CARE PROVIDER IN 1-2 DAYS FOR RE- EVALUATION OF SYMPTOMS. PATIENT VERBALIZES UNDERSTANDING TO RETURN TO ED FOR NEW OR WORSENING SYMPTOMS OR IF FOLLOW UP WITH PCP CANNOT BE OBTAINED. PATIENT FEELS COMFORTABLE GOING HOME AT THIS TIME. ALL QUESTIONS ADDRESSED AT TIME OF DISCHAR GE. Time of 1ST Reevaluation: 14:04 Reevaluation 1ST: Improved Patient Education/Counseling: Diagnosis, Treatment, Need For Follow Up Family Education/Counseling: Diagnosis, Treatment, No Family Present Medical Screening: No EMC Exist At This Time SEPSIS Sepsis Screen Date sepsis recognized/suspect: Nov 25, 2024 Time Sepsis recognized/suspect: 1111 Recent Procedure: No On Antibiotic Therapy: No Respiratory Rate >20: No Heart Rate >90: No Temp<36 C (96.8 F) or >38.3 C: No SBP <90 or MAP <65 mmHG: No New Acute Mental Status Change: No Is the patient on CPAP, BIPAP,: No Physician Orders Ct Ab Pel Wo Con-No Oral Or Iv (11/25/24 12:31) Thyroid Stimulating Hormone (11/25/24 12:32) Vital Signs Date Time Temp Pulse Resp B/P (MAP) Pulse Ox O2 Delivery O2 Flow Rate FiO2 11/25/24 11:10 97.6 87 18 118/64 96 97.6 Laboratory Tests Test 11/25/24 12:54 White Blood Count 7.1 10^3/uL (4.4-10.8) Departure 1 Departure Time of Disposition: 14:04 Impression: Primary Impression: Symptoms of urinary tract infection Additional Impression: Constipation Qualified Codes: K59.00 - Constipation, unspecified Disposition: HOME / SELF CARE / HOMELESS Condition: Stable Additional Instructions: FOLLOW-UP WITH PCP IN 1 TO 2 DAYS. TAKE MEDICATIONS PRESCRIBED. RETURN TO ED FOR ANY NEW OR WORSENING SYMPTOMS. e-Prescriptions Docusate Sodium (Colace) 100 Mg Cap 1 CAP PO BID, #30 CAP Prov: FERN MCCRARY 11/25/24 Cephalexin Monohydrate (Cephalexin) 500 Mg Cap 1 CAP PO TID, #21 CAP Prov: FERN MCCRARY 11/25/24 Discharged With: Self Critical Care Note Critical Care Time?: No Stability Stability form required: No Heart Score Heart Score: Heart Score Response (Comments) Value History N/A 0 EKG N/A 0 Age N/A 0 Risk Factors N/A 0 Troponin N/A 0 Total 0 I personally scribed for FERN MCCRARY ([email or web address]) on 11/25/24 at 12:00. El ectronically submitted by Etelvina Steward ([employer], [employer]). I personally scribed for FERN MCCRARY ([email or web address]) on 11/25/24 at 12:12. E lectronically submitted by Etelvina Steward ([employer], [employer] Secretary). I personally scribed for FERN MCCRARY ([email or web address]) on 11/25/24 at 13:52. Electronically submitted by Etelvina Steward ([employer], [employer] Secretary). FERN MCCRARY Nov 25, 2024 12:00
[2024-11-25 12:21] LABS: Urine Protein, UAD Negative (Negative)
[2024-11-25 13:08] LABS: Hematocrit 45.7 % (36.0-46.0); Hemoglobin 15.2 g/dL (12.2-16.2); Mean Corpuscular Hemoglobin 29.5 pg (28.0-32.0); Mean Corpuscular Volume 88.8 fL (80.0-100.0); Nucleated Red Blood Cells % 0.1 %
--- NOTE | 2024-11-25 13:21 | DVH ---
CLINICAL HISTORY: UTI SYMPTOMS TECHNIQUE: CT of the abdomen and pelvis was performed without IV contrast. This exam was performed ac cording to our departmental dose optimization program. Up-to-date CT equipment and radiation dose red uction techniques are utilized as appropriate. CTDI 6 DLP 281 COMPARISON: None FINDINGS: Abdomen/Pelvis: The spleen, pancreas, adrenal glands, liver, and kidneys are grossly unremarkable. The gallbladder and uterus are absent. The bladder is not well distended and therefore not well evalu ated. The abdominal aorta is normal in course and caliber. There are mild atherosclerotic calcifications. There is no free intraperitoneal air or fluid. There is no enlarged abdominal pelvic lymph node. There is no bowel wall thickening or dilatation. There has been right colon surgery. There has been p artial transverse colon resection with reanastomosis. There is a moderate sized fat containing right paramedian ventral hernia centered just above the umbilicus. There is mild colonic diverticulosis. Th ere is a moderate amount of stool in the colon. Other: The imaged lower thorax demonstrates mild camille lower lung atelectasis and or scar bilaterally arkab le. No acute osseous abnormality is evident. Impression: No acute noncontrast CT abnormality of the abdomen/pelvis. Constipation. Previous colonic receptions. Hysterectomy. Cholycystectomy.
[2024-11-25 13:23] LABS: Chloride 106 mmol/L (98-107); Potassium 4.6 mmol/L (3.5-5.1); Sodium 143 mmol/L (136-145)
[2024-11-25 13:24] LABS: Anion Gap 5 (5-15); Calcium 9.5 mg/dL (8.7-10.4)
[2024-11-25 13:29] LABS: BUN/Creatinine Ratio 15.4 (10.0-20.0); Blood Urea Nitrogen 12 mg/dL (9-23); Glucose 90 mg/dL (74-106)
[2024-11-25 13:42] LABS: Carbon Dioxide 32 mmol/L (20-31)
[2024-11-25] MEDS ORDERED: CEPH500C PO (14:03)
[2024-11-25] MEDS ORDERED: DOCU-94 PO (14:03)
[2024-11-25 14:20] VITALS: BP 119/70; PULSE 66; RESP 18; TEMP 98.3; O2SAT 100
== END 2024-11-25 14:20 | disposition home or self-care (01) ==
LOC: ER 11:09
DX: K59.00 Constipation, unspecified (principal); R68.89 Other general symptoms and signs; R30.0 Dysuria; R35.0 Frequency of micturition; R39.15 Urgency of urination; I10 Essential (primary) hypertension; Z87.891 Personal history of nicotine dependence; Z90.49 Acquired absence of other specified parts of digestive tract; Z88.1 Allergy status to other antibiotic agents; Z88.0 Allergy status to penicillin; Z79.890 Hormone replacement therapy; Z79.899 Other long term (current) drug therapy; Z87.440 Personal history of urinary (tract) infections; Z88.5 Allergy status to narcotic agent; Z90.710 Acquired absence of both cervix and uterus; Z98.890 Other specified postprocedural states
CPT/HCPCS: 36415; 74176; 80048; 81001; 84443; 85025

== ENCOUNTER 2024-12-22 18:37 | Inpatient (IN) | payer MEDICARE, OTHER, MEDICAID ==
[~2024-12-22] VITALS: Ht 160 cm; Wt 50.6 kg
[~2024-12-22 18:37] MED LIST changes: +CEPH500C PO; +DOCU-94 PO
--- NOTE | 2024-12-22 19:05 | ED.PDOC ---
History of Present Illness HPI Comments 74-year-old female came to ER via EMS for shortness a breath. Patient does have history of hypertension and thyroid tumor. For the past 2 days patient has been having shortness a breath, non unprovoked, at rest. Denies any chest pains or palpitations. Denies any nausea or vomiting patient is saturating 98% on room air Chief Complaint: Shortness of Breath Time Seen by MD: 19:05 Primary Care Provider: none Reviewed Notes: Manager Heart Notes Allergies: Coded Allergies: Erythromycin (Verified Allergy, Unknown, 12/13/14) Codeine (Verified Adverse Reaction, Severe, 08/01/13) Gentamicin (Verified Adverse Reaction, Severe, 08/01/13) Penicillins (Verified Adverse Reaction, Severe, 08/01/13) Streptomycin (Verified Adverse Reaction, Severe, 08/01/13) Home Meds Active Scripts Docusate Sodium (Colace) 100 Mg Cap, 1 CAP PO BID, #30 CAP Prov:FERN MCCRARY 11/25/24 Cephalexin Monohydrate (Cephalexin) 500 Mg Cap, 1 CAP PO TID, #21 CAP Prov:FERN MCCRARY 11/25/24 Levothyroxine Sodium (SYNTHROID TABLET) 50 Mcg Tb, 1 TAB PO DAILY, #30 TAB Prov:FERN MCCRARY 11/05/22 Reported Medications Clotrimazole (Topical) (CLOTRIMAZOLE ANTIFUNGAL) 1 %/F Cre, 1 % EX, CRE 08/02/13 Hydrocodone-Acetaminophen (Hydrocodone/Acetaminophen) 1 Tab Tab, 1 TAB PO, TAB 08/02/13 Cephalexin (Keflex) 500 Mg Cap, 500 MG PO QID, CAP 08/02/13 Levothyroxine Sodium (Levothyroxine Sodium) 25 Mcg Tab, 0.05 MCG PO DAILY, TAB 08/02/13 Propranolol Hcl (Inderal La) 60 Mg Cap, 20 MG PO TID, CAP 08/02/13 Information Source: Patient, Emergency Med Personnel Mode of Arrival: EMS Severity: Moderate Timing: Days Duration: Since onset Past Medical History PAST MEDICAL HISTORY: HTN, Thyroid, UTI'S Surgical History: BTL, Cholecystectomy, Hernia Repair, Hysterectomy CATH LAB NURSE History: No Pertinent CATH LAB NURSE History Family History Family History: Reviewed,noncontributory to illness Social History Smoker: Non-Smoker, Quit Greater Than 1 Year Alcohol: Denies ETOH Use Drugs: Denies Drug Use Lives In: Home Constitutional: denies: chills, diaphoresis, fatigue, fever, malaise, sweats, weakness, others EENTM: denies: blurred vision, double vision, ear bleeding, ear discharge, ear drainage, ear pain, ear ringing, eye pain, eye redness, hearing loss, mouth pain, mouth swelling, nasal discharge, nose bleeding, nose congestion, nose pain, photophobia, tearing, throat pain, throat swelling, voice changes, others Respiratory: reports: SOB at rest, shortness of breath; denies: cough, hemoptysis, orthopnea, SOB with excertion, stridor, wheezing, others Cardiovascular: denies: chest pain, dizzy spells, diaphoresis, Dyspnea on exertion, edema, irregular heart beat, left arm pain, lightheadedness, palpitations, PND, syncope, others Gastrointestinal: denies: abdomen distended, abdominal pain, blood streaked bowels, constipated, diarrhea, dysphagia, difficulty swallowing, hematemesis, melena, nausea, poor appetite, poor fluid intake, rectal bleeding, rectal pain, vomiting, others Genitourinary: denies: abnormal vagina bleeding, burning, dyspareunia, dysuria, flank pain, frequency, hematuria, incontinence, pain, , vagina discharge, urgency, others Neurological: denies: dizziness, fainting, headache, left sided numbness, left sided weakness, numbness, paresthesia, pre-existing deficit, right sided numbness, right sided weakness, seizure, speech problems, tingling, tremors, weakness, others Musculoskeletal: denies: back pain, gout, joint pain, joint swelling, muscle pain, muscle stiffness, neck pain, others Integumetry: denies: bruises, change in color, change in hair/nails, dryness, laceration, lesions, lumps, rash, wounds, others Allergic/Immunocompromised: denies: Difficulty Healing, Frequent Infections, Hives, Itching, others Hematologic/Lymphatic: denies: anemia, blood clots, easy bleeding, easy bruising, swollen glands, others Endocrine: denies: excessive hunger, excessive sweating, excessive thirst, excessive urination, flushing, intolerance to cold, intolerance to heat, unexplained weight gain, unexplained weight loss, others Psychiatric: denies: anxiety, bipolar disorder, depression, hopeless, panic disorder, schizophrenia, sleepless, suicidal, others Physical Exam General Appearance: No Apparent Distress, Normal HEENT: Normal ENT Inspection, Pharynx Normal, TMs Normal Neck: Full Range of Motion, Non-Tender, Normal, Normal Inspection Respiratory: Chest Non-Tender, Lungs Clear, No Accessory Muscle Use, No Respiratory Distress, Normal Breath Sounds Cardiovascular: No Edema, No JVD, No Murmur, No Gallop, Normal Peripheral Pulses, Regular Rate/Rhythm Breast Exam: Deferred Gastrointestinal: No Organomegaly, Non Tender, No Pulsatile Mass, Normal Bowel Sounds, Soft Genitalia: Deferred Pelvic: Deferred Rectal: Deferred Extremities: No calf tenderness, Normal capillary refill, Normal inspection, Normal range of motion, Non-tender, No pedal edema Musculoskeletal : Apperance: Normal Neurologic: Alert, berry picker II-XII nml as Tested, No Motor Deficits, Normal Affect, Normal Mood, No Sensory Deficits Cerebellar Function: Normal Reflexes: Normal Skin: Dry, Normal Color, Warm Lymphatic: No Adenopathy Was a procedure done? Was a procedure done?: No EKG EKG : Pulse Rate (adult): 79 Cardiac Rhythm: NSR Hypertrophy: LAE ST: Old, Inf, Infarct Comments Qwave, V1,2,3,4 Differential Dx Considerations may include: Thyroid tumor, anemia, electrolyte imbalance, upper respiratory infection, acs, copd, pneumonia, anxiety, ptx, pleural effusion, lung mass, PE X-Ray, Labs, Meds, VS Vital Signs Date Time Temp Pulse Resp B/P (MAP) Pulse Ox O2 Delivery O2 Flow Rate FiO2 12/22/24 19:05 79 12/22/24 18:54 79 12/22/24 18:43 98.5 84 32 185/74 98 98.5 Lab Test 12/22/24 20:55 12/22/24 19:40 Range/Units Troponin I High Sensitivity 25 31 </=34 ng/L White Blood Count 7.6 4.4-10.8 10^3/uL Red Blood Count 5.08 4.0-5.20 10^6/uL Hemoglobin 15.3 12.2-16.2 g/dL Hematocrit 45.1 36.0-46.0 % Mean Corpuscular Volume 88.8 80.0-100.0 fL Mean Corpuscular Hemoglobin 30.0 28.0-32.0 pg Mean Corpuscular Hemoglobin Concent 33.8 32.0-36.0 g/dL Red Cell Distribution Width 15.0 H 11.8-14.3 % Platelet Count 163 140-450 10^3/uL Mean Platelet Volume 9.0 6.9-10.8 fL Neutrophils (%) (Auto) 62.8 37.0-80.0 % Lymphocytes (%) (Auto) 22.8 10.0-50.0 % Monocytes (%) (Auto) 9.5 0.0-12.0 % Eosinophils (%) (Auto) 4.0 0.0-7.0 % Basophils (%) (Auto) 0.9 0.0-2.0 % Neutrophils # (Auto) 4.8 1.6-8.6 10 ^3/uL Lymphocytes # (Auto) 1.7 0.4-5.4 10 ^3/uL Monocytes # (Auto) 0.7 0-1.3 10 ^3/uL Eosinophils # (Auto) 0.3 0-0.8 10 ^3/uL Basophils # (Auto) 0.1 0-0.2 10 ^3/uL Nucleated Red Blood Cells 0.1 % Sodium Level 144 136-145 mmol/L Potassium Level 3.8 3.5-5.1 mmol/L Chloride Level 105 98-107 mmol/L Carbon Dioxide Level 30 20-31 mmol/L Anion Gap 9 5-15 Blood Urea Nitrogen 6 L 9-23 mg/dL Creatinine 0.91 0.550-1.02 mg/dL Glomerular Filtration Rate Calc 67 >90 mL/min BUN/Creatinine Ratio 6.6 L 10.0-20.0 Serum Glucose 115 H 74-106 mg/dL Calcium Level 9.8 8.7-10.4 mg/dL CHEST RADIOGRAPH Indication: sob Technique: Single frontal view of the chest was obtained Comparison: XY CHEST TWO VIEWS ROUTINE on DOS: 01/22/23, XY CHEST PORTABLE on DOS: 08/08/22, CHEST PORTABLE on DOS: 01/09/19 FINDINGS/IMPRESSION: The lungs are clear. The cardiomediastinal silhouette is unremarkable. No pleural effusion or pneumothorax. No acute osseous abnormality. Time of 1ST Reevaluation: 18:59 Reevaluation 1ST: Unchanged Time of 2ND Reevaluation: 21:33 Reevaluation 2ND: Improved Patient Education/Counseling: Diagnosis, Treatment, Prognosis, Need For Follow Up Family Education/Counseling: No Family Present SEPSIS Sepsis Screen Date sepsis recognized/suspect: Dec 22, 2024 Time Sepsis recognized/suspect: 1844 Recent Procedure: No On Antibiotic Therapy: No Respiratory Rate >20: Yes Heart Rate >90: No Temp<36 C (96.8 F) or >38.3 C: No SBP <90 or MAP <65 mmHG: No New Acute Mental Status Change: No Is the patient on CPAP, BIPAP,: No Physician Orders Electrocardigram (12/22/24 19:01) Continuous Ekg Monitoring 08,12,16,20,00,04 (12/22/24 19:23) Chest Xray 1 View (12/22/24 19:23) Troponin-I Hs (12/22/24 22:23) Vital Signs Date Time Temp Pulse Resp B/P (MAP) Pulse Ox O2 Delivery O2 Flow Rate FiO2 12/22/24 19:05 79 12/22/24 18:54 79 12/22/24 18:43 98.5 84 32 185/74 98 98.5 Laboratory Tests Test 12/22/24 19:40 White Blood Count 7.6 10^3/uL (4.4-10.8) Departure 1 Departure Time of Disposition: 21:34 Impression: Primary Impression: Unstable angina Disposition: ADMITTED INPATIENT Admit to: Tele Condition: Serious Discharged With: Self Critical Care Note Critical Care Time?: Yes (55 min-critical care time only) Critical care comment: Due to concerns for patients condition deteriorating, the care required my highest level of attention and readiness to intervene. I assessed the patient, reviewed the medical records, ordered the appropriate tests and treatments, then reassessed for results and responsiveness. I communicated with medical personnel and consultants and formulated a plan of care. Total critical care time excludes any procedures Patient initially denies having any chest pain reports sudden onset of shortness of breath while she was at rest. However on reassessment patient reports that she was having discomfort in the upper chest area as well as that of throat. She does feel better now but still has some symptoms. All the patient's cardiac workup is autoimmune remarkable however with her ongoing symptoms he will admit her for unstable angina Stability Stability form required: No Heart Score Heart Score: Heart Score Response (Comments) Value History Moderate Suspicious 1 EKG Repolarization Disturb 1 Age >65 2 Risk Factors >3 or Hx ASHD 2 Troponin Normal limit 0 Total 6 I personally scribed for DESTINY SERRANO MD ([facility]) on 12/22/24 at 19:05. Electr onically submitted by Robin Olson ([facility]). I personally scribed for DESTINY SERRANO MD ([facility]) on 12/22/24 at 19:06. Debby ctronically submitted by Robin Olson ([facility]). I personally scribed for DESTINY SERRANO MD ([facility]) on 12/22/24 at 20:41. Electronically submitted by Robin Olson ([facility]). DESTINY SERRANO MD Dec 22, 2024 19:05
[2024-12-22 19:57] LABS: Hematocrit 45.1 % (36.0-46.0); Hemoglobin 15.3 g/dL (12.2-16.2); Mean Corpuscular Hemoglobin 30.0 pg (28.0-32.0); Mean Corpuscular Volume 88.8 fL (80.0-100.0); Nucleated Red Blood Cells % 0.1 %
[2024-12-22 20:15] LABS: Chloride 105 mmol/L (98-107); Potassium 3.8 mmol/L (3.5-5.1); Sodium 144 mmol/L (136-145)
[2024-12-22 20:16] LABS: Anion Gap 9 (5-15); Calcium 9.8 mg/dL (8.7-10.4); Carbon Dioxide 30 mmol/L (20-31)
[2024-12-22 20:21] LABS: BUN/Creatinine Ratio 6.6 (10.0-20.0)
--- NOTE | 2024-12-22 20:21 | DVH ---
CHEST RADIOGRAPH Indication: sob Technique: Single frontal view of the chest was obtained Comparison: XY CHEST TWO VIEWS ROUTINE on DOS: 01/22/23, XY CHEST PORTABLE on DOS: 08/08/22, CHEST POR TABLE on DOS: 01/09/19 FINDINGS/IMPRESSION: The lungs are clear. The cardiomediastinal silhouette is unremarkable. No pleural effusion or pneumo thorax. No acute osseous abnormality.
[2024-12-22 20:22] LABS: Blood Urea Nitrogen 6 mg/dL (9-23); Glucose 115 mg/dL (74-106)
[2024-12-22] MEDS ORDERED: NITROGLYCERIN 0.4 MG SL TAB SL PRN (23:15)
[2024-12-22] MEDS ORDERED: MORPHINE SULFATE INJ 2 MG/ml SYRG IV PRN (23:15)
--- NOTE | 2024-12-22 23:25 | DVHHPRES ---
History of Present Illness Resident Creating Document: SHADY YING RESIDENT History of Present Illness Tiffanie Rosenberg is a 75-year-old female with past medical history of hypertension, hypothyroidism, recurrent UTIs, came to the ED with chief complaints of dysphagia, difficulty swallowing, and feeling weak, fatigued, since 1 month. Patient stated that she also felt short of breath after walking 1 block. She is on room air, and Does not use home oxygen. Patient complains that she feels like she is being "strangled" by the lump in her throat. She also feels dizzy, cold, and has constipation. Patient states that she is able to swallow liquids without trouble but is not able to swallow solid foods, has not eaten solid food since 3 weeks. Patient denies any chest pain, palpitations, dysuria, hematuria, cough, fever, chills. Patient also states that she had a overactive thyroid 30 years ago for which radioactive iodine was given. Patient is admitted for further management. Past surgical history: Bilateral tubal ligation, cholecystectomy, hernia repair, hysterectomy Family history: Reviewed, noncontributory Personal history: Patient denies smoking, drinking, drug use Lives with: Family Review of Systems Constitutional: Yes: Weakness; No: Fever, Chills, Sweats, Malaise, Other Eyes: No: Pain, Vision change, Conjunctivae inflammation, Eyelid inflammation, Other, Redness ENT: Throat pain, Other (Dysphagia); No: Ear pain, Ear discharge, Nose pain, N ose discharge, Nose congestion, Mouth pain, Mouth swelling, Throat swelling Respiratory: Shortness of breath; No: Cough, Dry, SOB with excertion, Wheezing, Hemoptysis, Pleuritic Pain, Sputum, Wheezing, Other Cardiovascular: No: Chest Pain, Palpitations, Orthopnea, Paroxysmal Noc. Dyspnea, Edema, Lt Headedness, Other Gastrointestinal: No: Nausea, Vomiting, Abdominal Pain, Diarrhea, Constipation, Melena, Hematochezia, Other Genitourinary: No Dysuria, No Frequency, No Incontinence, No Hematuria, No Retention, No Other Musculoskeletal: No: other, neck pain, shoulder pain, arm pain, back pain, hand pain, leg pain, foot pain Skin: No: Rash, Lesions, Jaundice, Bruising, Other Neurological: No: Weakness, Numbness, Incoordination, Change in speech, Confusion, Seizures, Other Allergies: Coded Allergies: Erythromycin (Verified Allergy, Unknown, 12/13/14) Codeine (Verified Adverse Reaction, Severe, 08/01/13) Gentamicin (Verified Adverse Reaction, Severe, 08/01/13) Penicillins (Verified Adverse Reaction, Severe, 08/01/13) Streptomycin (Verified Adverse Reaction, Severe, 08/01/13) Medications Current Medications Medications Dose Ordered Sig/Lisa Route Start Time Stop Time Status Last Admin Dose Admin Nitroglycerin 0.4 mg Q5MINP PRN SL 12/22/24 23:15 Morphine Sulfate 2 mg Q30M PRN IV 12/22/24 23:15 Exam Vital Signs Vital Signs Date Time Temp Pulse Resp B/P (MAP) Pulse Ox O2 Delivery O2 Flow Rate FiO2 12/22/24 22:14 98.6 77 16 139/91 (107) 94 98.6 Exam General: Patient alert and oriented in person, place and time. Patient follo wing commands. In moderate distress HEENT: Normocephalic, atraumatic, moist mucous membranes oral cavity appears nor mal, pain on swallowing, lump present in midline of throat Respiratory/pulmonary: Clear lungs bilaterally, vesicular murmurs present in almost all lung miller, no associated crackles or wheezes. Cardiovascular: Normal heart sounds S1 and S2 with no associated murmurs Abdomen: Abdomen nondistended, there is no pain to palpation in any of the abdominal quadrants, no palpable masses. Extremities: There is no peripheral edema present at the lower extremities. Peripheral Pulses: 3+ Radial (R). 3+ Radial (L). 3+ Dorsalis pedis (R). 3+ Dorsalis pedis(L) Skin: No rashes or pruritus, there is no sacral edema present at this time. Neurological: Intact cranial nerves with no focal neurologic deficits Psych/mood: Normal Labs/Xrays Labs Test 12/22/24 20:55 12/22/24 19:40 Range/Units Troponin I High Sensitivity 25 </=34 ng/L White Blood Count 7.6 4.4-10.8 10^3/uL Red Blood Count 5.08 4.0-5.20 10^6/uL Hemoglobin 15.3 12.2-16.2 g/dL Hematocrit 45.1 36.0-46.0 % Mean Corpuscular Volume 88.8 80.0-100.0 fL Mean Corpuscular Hemoglobin 30.0 28.0-32.0 pg Mean Corpuscular Hemoglobin Concent 33.8 32.0-36.0 g/dL Red Cell Distribution Width 15.0 H 11.8-14.3 % Platelet Count 163 140-450 10^3/uL Mean Platelet Volume 9.0 6.9-10.8 fL Neutrophils (%) (Auto) 62.8 37.0-80.0 % Lymphocytes (%) (Auto) 22.8 10.0-50.0 % Monocytes (%) (Auto) 9.5 0.0-12.0 % Eosinophils (%) (Auto) 4.0 0.0-7.0 % Basophils (%) (Auto) 0.9 0.0-2.0 % Neutrophils # (Auto) 4.8 1.6-8.6 10 ^3/uL Lymphocytes # (Auto) 1.7 0.4-5.4 10 ^3/uL Monocytes # (Auto) 0.7 0-1.3 10 ^3/uL Eosinophils # (Auto) 0.3 0-0.8 10 ^3/uL Basophils # (Auto) 0.1 0-0.2 10 ^3/uL Nucleated Red Blood Cells 0.1 % Sodium Level 144 136-145 mmol/L Potassium Level 3.8 3.5-5.1 mmol/L Chloride Level 105 98-107 mmol/L Carbon Dioxide Level 30 20-31 mmol/L Anion Gap 9 5-15 Blood Urea Nitrogen 6 L 9-23 mg/dL Creatinine 0.91 0.550-1.02 mg/dL Glomerular Filtration Rate Calc 67 >90 mL/min BUN/Creatinine Ratio 6.6 L 10.0-20.0 Serum Glucose 115 H 74-106 mg/dL Calcium Level 9.8 8.7-10.4 mg/dL SEPSIS Sepsis Screen Date sepsis recognized/suspect: Dec 22, 2024 Time Sepsis recognized/suspect: 1844 Recent Procedure: No On Antibiotic Therapy: No Respiratory Rate >20: Yes Heart Rate >90: No Temp<36 C (96.8 F) or >38.3 C: No SBP <90 or MAP <65 mmHG: No New Acute Mental Status Change: No Is the patient on CPAP, BIPAP,: No Physician Orders Electrocardigram (12/22/24 19:01) Continuous Ekg Monitoring 08,12,16,20,00,04 (12/22/24 19:23) Chest Xray 1 View (12/22/24 19:23) Admit (12/22/24 23:01) Nitroglycerin Sublingual (Ntrostat Subli (12/22/24 23:15) Morphine Sulfate Injection (12/22/24 23:15) Oxygen By Nasal Cannula (12/22/24 23:01) Stat Ekg For Chest Pain (12/22/24 23:01) Notify Md Of Changes From Base (12/22/24 23:) Powered Bridge Specialist For 24 Hours (12/22/24 23:01) Emergency Dysrhythmia Protocol (12/22/24 23:) Rhythm Strips Once Every Shift (12/22/24 23:01) Vital Signs Date Time Temp Pulse Resp B/P (MAP) Pulse Ox O2 Delivery O2 Flow Rate FiO2 12/22/24 22:14 98.6 77 16 139/91 (107) 94 98.6 12/22/24 19:05 79 12/22/24 18:54 79 12/22/24 18:43 98.5 84 32 185/74 98 98.5 Laboratory Tests Test 12/22/24 19:40 White Blood Count 7.6 10^3/uL (4.4-10.8) Assessment/Plan Assessment/Plan Assessment and plan #Dysphagia to solids more than liquids ?due to thyroid swelling -GI consult -NPO -IV fluids at 75 cc/hour -Chest with IV oral contrast #Thyroid swelling -Ordered TSH, elevated 62.5 -We will order free T3 and T4 -Continue home dose levothyroxine for now and will reassess for increase in the dose # hypothyroidism -resume home meds # Hypertension -resume home meds PPI prophylaxis: Protonix Goals of care addressed with the patient for more than 33 minutes: Full code status Case discussed with , patient and nurse Plan discussed with: Patient Date of Service: Dec 22, 2024 Billing Provider: DANA JHA MD Common Visit Codes: [id number] INP/OBS CARE (HIGH) Secondary Visit Codes: [id number] CARE PLAN 30 MINUTES SHADY YING RESIDENT Dec 22, 2024 23:25 MAKENNA STOUT Dec 23, 2024 08:17
[2024-12-23] VITALS (9 sets, daily range): BP systolic 135–149; BP diastolic 74–95; PULSE 60–87; RESP 16–18; TEMP 97.9–98.3; O2SAT 97–100
--- NOTE | 2024-12-23 02:49 | ECG ---
[facility] Test Date: 2024-12-22 Test Time: 18:54:52 Pat Name: JANE ESCUDERO Department: Room: [facility] [place] Gender: F Gynecologist: CHERIE : 1950 Requested By: DESTINY SERRANO Order Number: [id number] Reading MD: Harley Verduzco Measurements Intervals [place] Rate: 79 P: 55 MI: 157 QRS: -32 QRSD: 91 T: 33 QT: 371 QTc: 426 Interpretive Statements Sinus rhythm Left atrial enlargement Inferior infarct, old Anterior infarct, old Electronically Signed On 12-27-2024 9:27:20 PDT by Harley Verduzco Please click the below link to view image of tracing.
[2024-12-23] MEDS: PANTOPRAZOLE 40 MG/10 ML VIAL INJ IV ONE (03:03)
[2024-12-23] MEDS ORDERED: KETOROLAC TROMETH 30 MG/ML 1ML VIAL IV ONE (04:00)
[2024-12-23 07:23] LABS: Free T3 1.05 pg/mL (2.3-4.2); Free T4 (Free Thyroxine) 0.36 ng/dL (0.89-1.76)
[2024-12-23] MEDS: LEVOTHYROXINE SODIUM 50 MCG TAB PO SCH (09:47)
[2024-12-23 10:36] LABS: INR 1.07 (0.9-1.15); Prothrombin Time 11.3 sec (9.3-11.8)
[2024-12-23] MEDS ORDERED: IOHEXOL 300 MG/ML 100ML BOTTLE IJ ONE (10:50)
--- NOTE | 2024-12-23 11:21 | DVHPN2 ---
Reviewed: Care Plan, H&P, Labs, Medications, Previous Orders, Radiology Changes from previous H/P or p: No Changes Eyes: No Pain, No Vision change, No Conjunctivae inflammation, No Eyelid inflammation, No Other, No Redness ENT: No Ear pain, No Ear discharge, No Nose pain, No Nose discharge, No Nose congestion, No Mouth pain, No Mouth swelling; Throat pain; No Throat swelling; O ther (Dysphagia) Cardiovascular: No Chest Pain, No Palpitations, No Orthopnea, No Paroxysmal Noc. Dyspnea, No Edema, No Lt Headedness, No Other Respiratory: No Cough, No Dry; Shortness of breath; No SOB with excertion, No Wheezing, No Hemoptysis, No Pleuritic Pain, No Sputum, No Other Gastrointestinal: No Nausea, No Vomiting, No Abdominal Pain, No Diarrhea, No Constipation, No Melena, No Hematochezia, No Other Genitourinary: No Dysuria, No Frequency, No Incontinence, No Hematuria, No Retention, No Other Musculoskeletal: No other, No neck pain, No shoulder pain, No arm pain, No back pain, No hand pain, No leg pain, No foot pain Skin: No Rash, No Lesions, No Jaundice, No Bruising, No Other Objective Vitals Vital Signs Date Time Temp Pulse Resp B/P (MAP) Pulse Ox O2 Delivery O2 Flow Rate FiO2 12/23/24 09:00 98.2 79 17 149/83 (105) 99 98.2 12/23/24 08:00 Room Air* 0 21 Intake/Output Intake and Output 12/23/24 07:00 Intake Total 240 ml Balance 240 ml Intake Oral 240 ml # Voids 2 # Bowel Movements 1 Medications Current Medications Medications Dose Ordered Sig/Lisa Route Start Time Stop Time Status Last Admin Dose Admin Nitroglycerin 0.4 mg Q5MINP PRN SL 12/22/24 23:15 Morphine Sulfate 2 mg Q30M PRN IV 12/22/24 23:15 Pantoprazole Sodium 40 mg DAILY IV 12/24/24 10:00 Levothyroxine Sodium 112 mcg QAM@0600 PO 12/24/24 06:00 UNV Levothyroxine Sodium 100 mcg DAILY IV 12/24/24 10:00 UNV Laboratory Results Laboratory Tests 12/22/24 19:40 Chemistry Test 12/22/24 19:40 Calcium Level 9.8 mg/dL (8.7-10.4) Coagulation Test 12/23/24 09:40 Prothrombin Time 11.3 sec (9.3-11.8) Prothrombin Time INR 1.07 (0.9-1.15) Cardiac Markers Test 12/23/24 02:52 B-Type Natriuretic Peptide 16.98 pg/mL (0-100) HgA1c, TSH Test 12/22/24 19:40 Thyroid Stimulating Hormone (TSH) 62.63 uIU/mL (0.55-4.78) H Labs and/or images reviewed: Labs reviewed by me, Image(s) reviewed by me Assessment/Plan Assessment/Plan Acute dysphagia: GI consult for Dr. Valeri Chandra Severe hypothyroidism TSH 62 possibly causing dysphagia: Synthroid 112 mcg p.o. daily plus Synthroid 100 mcg IV daily History of hypothyroidism Hypertension History of recurrent UTI Hypertensive urgency 185/74: Blood pressure meds Plan discussed with: Patient My Orders Orders - CARISSA BARRON MD Procedure Category Date Status Time Thyroid US 12/23/24 Logged 11:13 Levothyroxine Tablet PHA 12/24/24 Logged (Synthroid Tablet) 06:00 Levothyroxine PHA 12/24/24 Logged Injection (Synthroid 10:00 Levothyroxine PHA 12/23/24 Logged Injection (Synthroid 11:15 Date of Service: Dec 23, 2024 Billing Provider: CARISSA BARRON MD Common Visit Codes: [id number] INP/OBS CARE(HIGH) CARISSA BARRON MD Dec 23, 2024 11:21
[2024-12-23] MEDS: LEVOTHYROXINE SODIUM 100 MCG/5 ML INJ IV ONE (11:40)
--- NOTE | 2024-12-23 13:33 | DVH ---
ULTRASOUND SOFT TISSUE HEAD AND NECK CLINICAL INDICATION: Severe hypothyroidism TECHNIQUE: Multiple real time sonographic images of the thyroid were obtained. Comparison: CT S.T. NECK W on DOS: 05/02/24, CT S.T. NECK on DOS: 05/02/24, US THYROID SOFT TISSUE NECK on DOS: 05/02/24, US THYROID SOFT TISSUE NECK on DOS: 02/07/24, CT S.T. NECK W on DOS: 02/01/24 FINDINGS: The right thyroid gland measures 4.2 x 1.2 x 1.0 cm. The left thyroid gland measures approximately 3.9 x 1.4 x 0.8 cm. The isthmus measures 0.1 cm. IMPRESSION: Heterogeneous and atrophic appearance of the thyroid gland. [employer] TI-RADS Categories and Recommendations (2017): TR1: 0 points, Benign, No FNA TR2: 2 points, Not suspicious, No FNA TR3: 3 points, Mildly suspicious, FNA if > or = 2.5 cm, Follow if > or = 1.5 cm TR4: 4-6 points, Moderately Suspicious, FNA if > or = 1.5 cm, Follow if > or = 1.0 cm TR5: 7+ points, Highly Suspicious, FNA if > or = 1.0 cm, Follow if > or = 0.5 cm Follow-up ultrasound guidelines: TR5: yearly for 5 years, if no growth or change in TI-RADS level TR4: at 1, 2, 3 and 5 years, if no growth or change in TI-RADS level TR3: at 1, 3 and 5 years, if no growth or change in TI-RADS level If increased but below threshold for FNA, repeat in one year. Source: ACR Thyroid Imaging, Reporting and Data System (TI-RADS): White Paper of the A[employer] TI-RADS Committee. Marciano et al., J Am Alec Radiol 2017;14:587-595.
[2024-12-23] MEDS: PROPRANOLOL HCL 20 MG TAB PO SCH (14:00)
--- NOTE | 2024-12-23 16:00 | DVHINCON2 ---
Date of service: Dec 23, [address] Shady Phipps Reason for Consultation Dysphagia History of Present Illness Tiffanie Rosenberg is a 75-year-old female with past medical history of hypertension, hypothyroidism, recurrent UTIs, came to the ED with chief complaints of dysphagi a for 3 weeks, difficulty swallowing soliids, and feeling weak, fatigued, since 1 month. Patient stated that she also felt short of breath after walking 1 block. She is on room air, and Does not use home oxygen. Patient complains that she feels like she is being "strangled" by the lump in her throat. She also feels dizzy, cold, and has constipation. Patient states that she is able to swallow liquids without trouble but is not able to swallow solid foods, has not eaten solid food since 3 weeks. Patient denies any chest pain, palpitations, dysuria, hematuria, cough, fever, chills. Patient also states that she had a overactive thyroid 30 years ago for which radioactive iodine was given. Patient is admitted for further management. She has not had any prior endoscopy or colonoscopy Past Medical History hypertension, hypothyroidism, recurrent UTIs, Past Surgical History Past surgical history: Bilateral tubal ligation, cholecystectomy, hernia repair, hysterectomy Family History: Hypertension G8 FATHER Family History Family history: Reviewed, noncontributory Social History Personal history: Patient denies smoking, drinking, drug use Lives with: Family Allergies: Coded Allergies: Erythromycin (Verified Allergy, Unknown, 12/13/14) Codeine (Verified Adverse Reaction, Severe, 08/01/13) Gentamicin (Verified Adverse Reaction, Severe, 08/01/13) Penicillins (Verified Adverse Reaction, Severe, 08/01/13) Streptomycin (Verified Adverse Reaction, Severe, 08/01/13) Home Meds Active Scripts Docusate Sodium (Colace) 100 Mg Cap, 1 CAP PO BID, #30 CAP Prov:FERN MCCRARY 11/25/24 Cephalexin Monohydrate (Cephalexin) 500 Mg Cap, 1 CAP PO TID, #21 CAP Prov:FERN MCCRARY 11/25/24 Levothyroxine Sodium (SYNTHROID TABLET) 50 Mcg Tb, 1 TAB PO DAILY, #30 TAB Prov:FERN MCCRARY 11/05/22 Reported Medications Clotrimazole (Topical) (CLOTRIMAZOLE ANTIFUNGAL) 1 %/F Cre, 1 % EX, CRE 08/02/13 Hydrocodone-Acetaminophen (Hydrocodone/Acetaminophen) 1 Tab Tab, 1 TAB PO, TAB 08/02/13 Cephalexin (Keflex) 500 Mg Cap, 500 MG PO QID, CAP 08/02/13 Levothyroxine Sodium (Levothyroxine Sodium) 25 Mcg Tab, 0.05 MCG PO DAILY, TAB 08/02/13 Propranolol Hcl (Inderal La) 60 Mg Cap, 20 MG PO TID, CAP 08/02/13 Current Medications Current Medications Medications (Trade) Dose Ordered Sig/Lisa Route PRN Reason Start Time Stop Time Status Last Admin Nitroglycerin (Ntrostat Sublingual) 0.4 mg Q5MINP PRN SL FOR CHEST PAIN 12/22/24 23:15 Morphine Sulfate 2 mg Q30M PRN IV FOR CHEST PAIN 12/22/24 23:15 Pantoprazole Sodium (Protonix) 40 mg DAILY IV 12/24/24 10:00 Levothyroxine Sodium (Synthroid Tablet) 50 mcg DAILY@0600 PO 12/23/24 10:00 12/23/24 11:16 DC Levothyroxine Sodium (Synthroid Tablet) 112 mcg QAM@0600 PO 12/24/24 06:00 Levothyroxine Sodium (Synthroid Injection) 100 mcg DAILY IV 12/24/24 10:00 Propranolol HCl (Inderal Tablet) 20 mg TID PO 12/23/24 14:00 12/23/24 14:00 Amlodipine Besylate (Norvasc Tablet) 10 mg DAILY PO 12/24/24 10:00 Vital Signs Vital Signs Date Time Temp Pulse Resp B/P (MAP) Pulse Ox O2 Delivery O2 Flow Rate FiO2 12/23/24 14:00 74 136/80 12/23/24 13:00 97.9 18 97 97.9 12/23/24 08:00 Room Air* 0 21 Physical Exam General: Patient alert and oriented in person, place and time. Patient following commands. In moderate distress HEENT: Normocephalic, atraumatic, moist mucous membranes oral cavity appears normal, pain on swallowing, lump present in midline of throat Respiratory/pulmonary: Clear lungs bilaterally, vesicular murmurs present in almost all lung miller, no associated crackles or wheezes. Cardiovascular: Normal heart sounds S1 and S2 with no associated murmurs Abdomen: Abdomen nondistended, there is no pain to palpation in any of the abdominal quadrants, no palpable masses. Extremities: There is no peripheral edema present at the lower extremities. Peripheral Pulses: 3+ Radial (R). 3+ Radial (L). 3+ Dorsalis pedis (R). 3+ Dorsalis pedis(L) Skin: No rashes or pruritus, there is no sacral edema present at this time. Neurological: Intact cranial nerves with no focal neurologic deficits Psych/mood: Normal Labs/Diagnostic Data Labs Test 12/23/24 09:40 12/23/24 04:21 12/23/24 02:52 12/22/24 19:40 Range/Units Prothrombin Time 11.3 9.3-11.8 sec Prothrombin Time INR 1.07 0.9-1.15 Troponin I High Sensitivity 28 </=34 ng/L B-Type Natriuretic Peptide 16.98 0-100 pg/mL Free Thyroxine (T4) Calculated 0.36 L 0.89-1.76 ng/dL Free Triiodothyronine (T3) pg/mL 1.05 L 2.3-4.2 pg/mL White Blood Count 7.6 4.4-10.8 10^3/uL Red Blood Count 5.08 4.0-5.20 10^6/uL Hemoglobin 15.3 12.2-16.2 g/dL Hematocrit 45.1 36.0-46.0 % Mean Corpuscular Volume 88.8 80.0-100.0 fL Mean Corpuscular Hemoglobin 30.0 28.0-32.0 pg Mean Corpuscular Hemoglobin Concent 33.8 32.0-36.0 g/dL Red Cell Distribution Width 15.0 H 11.8-14.3 % Platelet Count 163 140-450 10^3/uL Mean Platelet Volume 9.0 6.9-10.8 fL Neutrophils (%) (Auto) 62.8 37.0-80.0 % Lymphocytes (%) (Auto) 22.8 10.0-50.0 % Monocytes (%) (Auto) 9.5 0.0-12.0 % Eosinophils (%) (Auto) 4.0 0.0-7.0 % Basophils (%) (Auto) 0.9 0.0-2.0 % Neutrophils # (Auto) 4.8 1.6-8.6 10 ^3/uL Lymphocytes # (Auto) 1.7 0.4-5.4 10 ^3/uL Monocytes # (Auto) 0.7 0-1.3 10 ^3/uL Eosinophils # (Auto) 0.3 0-0.8 10 ^3/uL Basophils # (Auto) 0.1 0-0.2 10 ^3/uL Nucleated Red Blood Cells 0.1 % Sodium Level 144 136-145 mmol/L Potassium Level 3.8 3.5-5.1 mmol/L Chloride Level 105 98-107 mmol/L Carbon Dioxide Level 30 20-31 mmol/L Anion Gap 9 5-15 Blood Urea Nitrogen 6 L 9-23 mg/dL Creatinine 0.91 0.550-1.02 mg/dL Glomerular Filtration Rate Calc 67 >90 mL/min BUN/Creatinine Ratio 6.6 L 10.0-20.0 Serum Glucose 115 H 74-106 mg/dL Calcium Level 9.8 8.7-10.4 mg/dL Thyroid Stimulating Hormone (TSH) 62.63 H 0.55-4.78 uIU/mL Thyroid USG IMPRESSION: Heterogeneous and atrophic appearance of the thyroid gland. CT SCAN ABD PELVIS 12/05/24 Impression: No acute noncontrast CT abnormality of the abdomen/pelvis. Constipation. Previous colonic receptions. Hysterectomy. Cholycystectomy. Problems(with codes): (1) Constipation (2) Shortness of breath (3) Hypothyroidism (4) Difficulty swallowing Plan/Recommendation Plan Start thyroid supplements to current severe hypothyroidism Get a barium swallow x-ray CT scan of the chest is pending, consider CT of the neck Pending correction of for hypothyroidism and reviewing the above imaging studies I will schedule a tentative endoscopy on 12/25 or 12/26/2024 Plan discussed with: Patient, Other (Nurse and Dr Phipps) FREDRICK GUTIERREZ MD Dec 23, 2024 16:00
--- NOTE | 2024-12-23 16:02 | DVH ---
Procedure: CT CHEST WITH CONTRAST Reason for study/Clinical History: dysphagia Comparison Study: XY CHEST XRAY 1 VIEW on DOS: 12/22/24, XY CHEST TWO VIEWS ROUTINE on DOS: 01/22/23, XY CHEST PORTABLE on DOS: 08/08/22, CHEST PORTABLE on DOS: 01/09/19 Exam Date: 12/23/2024 10:57 AM Radiation Dose Information: CT Dose: CTDI volume is 5.17 mGy. Dose-length product is 177.05 mGy*cm TECHNIQUE: After the uneventful administration of intravenous contrast intravenously, CT imaging was performed through the chest. Coronal and sagittal reformations were performed by the technologist. FINDINGS: Lower Neck: Visualized portions of the thyroid gland are unremarkable. Aorta and Vasculature: Normal caliber of thoracic aorta. Lymph Nodes: No enlarged intrathoracic lymph nodes. Mediastinum: Cardiomegaly. Lungs: No focal consolidation, pleural effusion or significant pneumothorax. No suspicious pulmonary nodule or mass. Dependent atelectasis. Musculoskeletal: No acute osseous abnormality. Degenerative changes of the spine. Upper abdomen: Limited portions of the upper abdomen are unremarkable. IMPRESSION: No acute intrathoracic abnormality.
[2024-12-24] VITALS (8 sets, daily range): BP systolic 107–142; BP diastolic 60–74; PULSE 56–69; RESP 17–21; TEMP 97.7–98.9; O2SAT 96–100
[2024-12-24] MEDS: LEVOTHYROXINE SODIUM 112 MCG TAB PO SCH (06:25)
[2024-12-24] MEDS: LEVOTHYROXINE SODIUM 100 MCG/5 ML INJ IV SCH (10:02)
[2024-12-24] MEDS: PANTOPRAZOLE 40 MG/10 ML VIAL INJ IV SCH (10:02)
--- NOTE | 2024-12-24 11:21 | DVHPN2 ---
Reviewed: Care Plan, H&P, Labs, Medications, Previous Orders, Radiology Changes from previous H/P or p: No Changes Eyes: No Pain, No Vision change, No Conjunctivae inflammation, No Eyelid inflammation, No Other, No Redness ENT: No Ear pain, No Ear discharge, No Nose pain, No Nose discharge, No Nose congestion, No Mouth pain, No Mouth swelling; Throat pain; No Throat swelling; O ther (Dysphagia) Cardiovascular: No Chest Pain, No Palpitations, No Orthopnea, No Paroxysmal Noc. Dyspnea, No Edema, No Lt Headedness, No Other Respiratory: No Cough, No Dry; Shortness of breath; No SOB with excertion, No Wheezing, No Hemoptysis, No Pleuritic Pain, No Sputum, No Other Gastrointestinal: No Nausea, No Vomiting, No Abdominal Pain, No Diarrhea, No Constipation, No Melena, No Hematochezia, No Other Genitourinary: No Dysuria, No Frequency, No Incontinence, No Hematuria, No Retention, No Other Musculoskeletal: No other, No neck pain, No shoulder pain, No arm pain, No back pain, No hand pain, No leg pain, No foot pain Skin: No Rash, No Lesions, No Jaundice, No Bruising, No Other Objective Vitals Vital Signs Date Time Temp Pulse Resp B/P (MAP) Pulse Ox O2 Delivery O2 Flow Rate FiO2 12/24/24 10:02 121/70 12/24/24 09:00 98.4 69 18 100 98.4 12/24/24 08:00 Room Air* 0 21 Intake/Output Intake and Output 12/24/24 07:00 Intake Total 1150 ml Balance 1150 ml Intake Oral 1150 ml # Voids 5 # Bowel Movements 1 Medications Current Medications Medications Dose Ordered Sig/Lisa Route Start Time Stop Time Status Last Admin Dose Admin Nitroglycerin 0.4 mg Q5MINP PRN SL 12/22/24 23:15 Morphine Sulfate 2 mg Q30M PRN IV 12/22/24 23:15 Pantoprazole Sodium 40 mg DAILY IV 12/24/24 10:00 12/24/24 10:02 40 MG Levothyroxine Sodium 112 mcg QAM@0600 PO 12/24/24 06:00 12/24/24 06:25 112 MCG Levothyroxine Sodium 100 mcg DAILY IV 12/24/24 10:00 12/24/24 10:02 100 MCG Propranolol HCl 20 mg TID PO 12/23/24 14:00 12/24/24 06:26 20 MG Amlodipine Besylate 10 mg DAILY PO 12/24/24 10:00 12/24/24 10:02 10 MG Laboratory Results Laboratory Tests 12/22/24 19:40 Labs and/or images reviewed: Labs reviewed by me, Image(s) reviewed by me Assessment/Plan Assessment/Plan Acute dysphagia: GI consult for Dr. Valeri Chandra appreciated, CT chest negative, CT neck pending Severe hypothyroidism TSH 62 possibly causing dysphagia: Synthroid 112 mcg p.o. daily plus Synthroid 100 mcg IV daily; thyroid ultrasound shows atrophy of the thyroid History of hypothyroidism Hypertension History of recurrent UTI Hypertensive urgency 185/74: CT neck pending Service consult for PCP in [place] Plan discussed with: Patient My Orders Orders - CARISSA BARRON MD Procedure Category Date Status Time Propranolol Hcl PHA 12/23/24 In Process Tablet (Inderal 14:00 Amlodipine Tablet PHA 12/24/24 In Process (Norvasc Tablet) 10:[address] 12/24/24 Verified 11:15 Date of Service: Dec 24, 2024 Billing Provider: CARISSA BARRON MD Common Visit Codes: [id number] INP/OBS CARE(HIGH) CARISSA BARRON MD Dec 24, 2024 11:21
--- NOTE | 2024-12-24 12:52 | DVH ---
EXAM: CT NECK WITHOUT CONTRAST INDICATION: Dysphagia TECHNIQUE: Volumetric multidetector CT images of the cervical soft tissues were obtained after admini stration of 100 ml low osmolar intravenous contrast. All CT scans at this facility use dose modulatio n, iterative reconstruction, and/or weight based dosing when appropriate to reduce radiation dose to as low as reasonably achievable. COMPARISON: CT S.T. NECK W on DOS: 05/02/24 FINDINGS: [ORBITS, PARANASAL SINUSES, AND SKULL BASE]: Normal. [NASOPHARYNX: Normal. [SUPRAHYOID NECK]: No abnormality of the retropharyngeal spaces or parapharyngeal spaces. Question sl ight undulating contour along the posterior aspect of the base of the tongue consider direct visualiz ation if clinically indicated to exclude malignancy. No discrete measurable mass. The parotid and sub mandibular glands are normal. [INFRAHYOID NECK]: Normal appearance of the larynx, hypopharynx, and supraglottis. [THYROID]: Normal appearance of the thyroid gland. [LYMPH NODES]: There is no pathologically enlarged or necrotic lymph nodes. [VASCULATURE STRUCTURES]: The vascular structures of the neck appear patent. [OTHER]: The visualized lung apices are clear. The limited visualized portions of the brain are unrem arkable. The osseous structures are unremarkable. IMPRESSION: 1. No evidence of cervical mass lesion, pathologically enlarged lymph nodes or fluid collection. 2. Question slight undulating contour along the posterior aspect of the base of the tongue consider d irect visualization if clinically indicated to exclude malignancy. 3. No discrete measurable mass.
--- NOTE | 2024-12-24 14:01 | DVHPN2 ---
Progress Note - Dictate Date Seen: Dec 24, 2024 Medical Necessity Reason Pt with a Central, PICC or Fol: No vital signs Vital Sign Date Time Temp Pulse Resp B/P (MAP) Pulse Ox O2 Delivery O2 Flow Rate FiO2 12/24/24 12:58 98.2 62 18 111/74 (86) 97 98.2 12/24/24 08:00 Room Air* 0 21 Total Intake and Output 12/23/24 12/23/24 12/24/24 15:00 23:00 07:00 Intake Total 400 ml 750 ml Balance 400 ml 750 ml medications Current Medications Medications Dose Ordered Sig/Lisa Route Start Time Stop Time Status Last Admin Dose Admin Nitroglycerin 0.4 mg Q5MINP PRN SL 12/22/24 23:15 Morphine Sulfate 2 mg Q30M PRN IV 12/22/24 23:15 Pantoprazole Sodium 40 mg DAILY IV 12/24/24 10:00 12/24/24 10:02 40 MG Levothyroxine Sodium 112 mcg QAM@0600 PO 12/24/24 06:00 12/24/24 06:25 112 MCG Levothyroxine Sodium 100 mcg DAILY IV 12/24/24 10:00 12/24/24 10:02 100 MCG Propranolol HCl 20 mg TID PO 12/23/24 14:00 12/24/24 06:26 20 MG Amlodipine Besylate 10 mg DAILY PO 12/24/24 10:00 12/24/24 10:02 10 MG objective General: Patient alert and oriented in person, place and time. Patient following commands. In moderate distress HEENT: Normocephalic, atraumatic, moist mucous membranes oral cavity appears normal, pain on swallowing, lump present in midline of throat Respiratory/pulmonary: Clear lungs bilaterally, vesicular murmurs present in almost all lung miller, no associated crackles or wheezes. Cardiovascular: Normal heart sounds S1 and S2 with no associated murmurs Abdomen: Abdomen nondistended, there is no pain to palpation in any of the abdominal quadrants, no palpable masses. Extremities: There is no peripheral edema present at the lower extremities. Peripheral Pulses: 3+ Radial (R). 3+ Radial (L). 3+ Dorsalis pedis (R). 3+ Dorsalis pedis(L) Skin: No rashes or pruritus, there is no sacral edema present at this time. Neurological: Intact cranial nerves with no focal neurologic deficits Psych/mood: Normal laboratory and microbiology Laboratory Tests 12/22/24 19:40 Test 12/22/24 19:40 Range/Units Serum Glucose 115 H 74-106 mg/dL Chest CT IMPRESSION: No acute intrathoracic abnormality. Neck CT IMPRESSION: 1. No evidence of cervical mass lesion, pathologically enlarged lymph nodes or fluid collection. 2. Question slight undulating contour along the posterior aspect of the base of the tongue consider direct visualization if clinically indicated to exclude malignancy. 3. No discrete measurable mass. Problems(with codes): (1) Difficulty swallowing (2) Hypothyroidism (3) Constipation Prognosis Plan Start thyroid supplements to current severe hypothyroidism Get a barium swallow x-ray in am CT neck findings noted I will schedule a tentative endoscopy on 12/25 or 12/26/2024 Dietary Evaluation Review Comments: 1) Refer to speech therapy for swallow evaluation 2) If patient remains NPO > 7 days, consider EN/TPN to meet at least 75% of estimated daily needs 3) Advance to 2g Na diet when medically feasible, pending ST approval 4) Initiate Ensure Enlive bid when medically feasible, pending ST approval 5) Continue to monitor I&O, labs, and skin integrity Expected Outcomes/Goals: 1) patient to receive nutritional support within 7 days of NPO status 2) labs to improve 3) diet to advance 4) f/u in 3-5 days Plan discussed with: Patient FREDRICK GUTIERREZ MD Dec 24, 2024 14:01
[2024-12-25] VITALS (8 sets, daily range): BP systolic 101–135; BP diastolic 63–76; PULSE 54–60; RESP 16–98; TEMP 97.4–98.1; O2SAT 95–100
[2024-12-25 10:24] LABS: Hepatitis B Surface Antigen Negative (Negative)
[2024-12-25] MEDS ORDERED: GASTROGRAFIN 120 ML SOL ONE ×2 (10:49→10:50)
[2024-12-25 11:12] LABS: Hepatitis C Antibody Negative (Negative)
--- NOTE | 2024-12-25 11:56 | DVH ---
XY ESOPHAGUS GASTROGRAFIN SWALLOW, HISTORY: OROPHARYGEAL DYSPHAGIA COMPARISON: CT NECK WITHOUT CONTRAST on DOS: 12/24/24, CT S.T. NECK W on DOS: 05/02/24, CT S.T. NECK on DOS: 05/02/24 PROCEDURE: A gi physician radiograph was obtained prior to the procedure. Gastrografin administered orally, and radiographs were obtained under intermittent fluoroscopic observation. Total fluoroscopic time w as 0.6 minutes. FINDINGS: The esophagus was normal in caliber with no stricture, filling defect or wall irregularity demonstrat ed. Slow esophageal peristalsis was observed. IMPRESSION: Slow esophageal peristalsis, otherwise unremarkable esophagram. Patient only able to tolerate a small amount of contrast.
--- NOTE | 2024-12-25 13:09 | DVHPN2 ---
Reviewed: Care Plan, H&P, Labs, Medications, Previous Orders, Radiology Changes from previous H/P or p: No Changes Eyes: No Pain, No Vision change, No Conjunctivae inflammation, No Eyelid inflammation, No Other, No Redness ENT: No Ear pain, No Ear discharge, No Nose pain, No Nose discharge, No Nose congestion, No Mouth pain, No Mouth swelling; Throat pain; No Throat swelling; O ther (Dysphagia) Cardiovascular: No Chest Pain, No Palpitations, No Orthopnea, No Paroxysmal Noc. Dyspnea, No Edema, No Lt Headedness, No Other Respiratory: No Cough, No Dry; Shortness of breath; No SOB with excertion, No Wheezing, No Hemoptysis, No Pleuritic Pain, No Sputum, No Other Gastrointestinal: No Nausea, No Vomiting, No Abdominal Pain, No Diarrhea, No Constipation, No Melena, No Hematochezia, No Other Genitourinary: No Dysuria, No Frequency, No Incontinence, No Hematuria, No Retention, No Other Musculoskeletal: No other, No neck pain, No shoulder pain, No arm pain, No back pain, No hand pain, No leg pain, No foot pain Skin: No Rash, No Lesions, No Jaundice, No Bruising, No Other Objective Vitals Vital Signs Date Time Temp Pulse Resp B/P (MAP) Pulse Ox O2 Delivery O2 Flow Rate FiO2 12/25/24 11:33 125/76 12/25/24 09:00 98.1 60 16 98 98.1 12/25/24 08:00 Room Air* 0 21 Intake/Output Intake and Output 12/25/24 07:00 Intake Total 1150 ml Output Total 100 ml Balance 1050 ml Intake Oral 1150 ml Output Urine Total 100 ml # Voids 5 # Bowel Movements 3 Medications Current Medications Medications Dose Ordered Sig/Lisa Route Start Time Stop Time Status Last Admin Dose Admin Nitroglycerin 0.4 mg Q5MINP PRN SL 12/22/24 23:15 Morphine Sulfate 2 mg Q30M PRN IV 12/22/24 23:15 Pantoprazole Sodium 40 mg DAILY IV 12/24/24 10:00 12/24/24 10:02 40 MG Levothyroxine Sodium 112 mcg QAM@0600 PO 12/24/24 06:00 12/25/24 05:27 112 MCG Levothyroxine Sodium 100 mcg DAILY IV 12/24/24 10:00 12/24/24 10:02 100 MCG Propranolol HCl 20 mg TID PO 12/23/24 14:00 12/25/24 05:27 20 MG Amlodipine Besylate 10 mg DAILY PO 12/24/24 10:00 12/25/24 11:33 10 MG Laboratory Results Laboratory Tests 12/22/24 19:40 Labs and/or images reviewed: Labs reviewed by me, Image(s) reviewed by me Assessment/Plan Assessment/Plan Acute dysphagia: GI consult for Dr. Valeri Chandra appreciated, CT chest negative, CT neck pending Severe hypothyroidism TSH 62 possibly causing dysphagia: Synthroid 112 mcg p.o. daily plus Synthroid 100 mcg IV daily; thyroid ultrasound shows atrophy of the thyroid History of hypothyroidism Hypertension History of recurrent UTI Hypertensive urgency 185/74: CT neck pending Service consult for PCP in [place] Plan discussed with: Patient My Orders Orders - CARISSA BARRON MD Procedure Category Date Status Time * [employer] CONS 12/24/24 Transmitted Consult Thyroid Stimulating LAB 12/26/24 Verified Hormone 04:00 Date of Service: Dec 25, 2024 Billing Provider: CARISSA BARRON MD Common Visit Codes: [id number] INP/OBS CARE(HIGH) CARISSA BARRON MD Dec 25, 2024 13:09
[2024-12-25] MEDS: HYDROcodone-ACET 5/325MG TAB ONE (14:26)
[2024-12-25] MEDS: HYDROcodone-ACET 5/325MG TAB PO PRN (14:26)
--- NOTE | 2024-12-25 17:31 | DVHPN2 ---
Progress Note Date Seen: Dec 25, 2024 Resident Creating Document: ARSENIO PAREKH RESIDENT Medical Necessity Reason Pt with a Central, PICC or Fol: No Subjective Review of Systems Patient seen and examined at bedside Denies any nausea or vomiting Tolerating clear liquid diet without any difficulty swallowing Last bowel movement day before yesterday Gastrografin shows slow esophageal peristalsis Objective vital signs Vital Sign Date Time Temp Pulse Resp B/P (MAP) Pulse Ox O2 Delivery O2 Flow Rate FiO2 12/25/24:25 58 115/63 12/25/24 13:00 98.0 16 97 98.0 12/25/24 08:00 Room Air* 0 21 Total Intake and Output 12/24/24 12/24/24 12/25/24 15:00 23:00 07:00 Intake Total 550 ml 600 ml Output Total 100 ml Balance 550 ml 500 ml medications Current Medications Medications Dose Ordered Sig/Lisa Route Start Time Stop Time Status Last Admin Dose Admin Nitroglycerin 0.4 mg Q5MINP PRN SL 12/22/24 23:15 Morphine Sulfate 2 mg Q30M PRN IV 12/22/24 23:15 Pantoprazole Sodium 40 mg DAILY IV 12/24/24 10:00 12/25/24 13:29 40 MG Levothyroxine Sodium 112 mcg QAM@0600 PO 12/24/24 06:00 12/25/24 05:27 112 MCG Levothyroxine Sodium 100 mcg DAILY IV 12/24/24 10:00 12/25/24 13:29 100 MCG Propranolol HCl 20 mg TID PO 12/23/24 14:00 12/25/24 14:25 20 MG Amlodipine Besylate 10 mg DAILY PO 12/24/24 10:00 12/25/24 11:33 10 MG Acetaminophen/ Hydrocodone Bitart 1 tab Q6HPRN PRN PO 12/25/24 13:15 12/25/24 14:26 1 TAB Examination General Appearance: Cooperative. Well developed. Well nourished. NAD Pulmonary/Respiratory: Equal bilateral air entry Cardiovascular/Chest: Regular rate and rhythm. No murmurs. No JVD. Abdominal Exam: Normal bowel sounds. Soft. normal abdomen, no visible veins, Nontender. No hepatospenomegaly. No masses Ankle Exam: Negative ankle edema Neuro/Mental Status: A&O x4. Coherent. Thoughts/Psych: Normal thought pattern. Appropriate mood and affect. Good judgement and insight Skin Exam: Normal inspection. Normal color. Warm. Dry laboratory and microbiology Laboratory Tests 12/22/24 19:40 Test 12/22/24 19:40 Range/Units Serum Glucose 115 H 74-106 mg/dL Labs and/or images reviewed: Labs reviewed by me, Image(s) reviewed by me Problem List/Assessment/Plan Problem List/Assessment/Plan Oropharyngeal dysphagia Hypothyroidism, severe Constipation Plan: Thyroid supplementation Gastrografin: Slow esophageal peristalsis CT neck findings noted NPO after midnight Possible EGD tomorrow if patient agreeable, as patient remains hesitant Thank you so much for the opportunity to consult on your patient. GI team will follow the patient. In case of any questions or concerns please feel free to reach out. Plan discussed with Dr. Chandra Plan discussed with: Patient Dietary Evaluation Review Comments: 1) Refer to speech therapy for swallow evaluation 2) If patient remains NPO > 7 days, consider EN/TPN to meet at least 75% of estimated daily needs 3) Advance to 2g Na diet when medically feasible, pending ST approval 4) Initiate Ensure Enlive bid when medically feasible, pending ST approval 5) Continue to monitor I&O, labs, and skin integrity Expected Outcomes/Goals: 1) patient to receive nutritional support within 7 days of NPO status 2) labs to improve 3) diet to advance 4) f/u in 3-5 days ARSENIO PAREKH RESIDENT Dec 25, 2024 17:31
[2024-12-25 21:49] LABS: Urine Protein, UAD Negative (Negative)
[2024-12-26 01:00] VITALS: BP 97/57; PULSE 55; RESP 19; TEMP 97.5; O2SAT 97
[2024-12-26 05:00] VITALS: BP 135/63; PULSE 56; RESP 19; TEMP 97.8; O2SAT 99
[2024-12-26 08:00] VITALS: PULSE 66
[2024-12-26 09:00] VITALS: BP 111/59; PULSE 58; RESP 18; TEMP 97.8; O2SAT 100
[2024-12-26] MEDS ORDERED: LEVO-849 PO (10:13)
[2024-12-26] MEDS ORDERED: AMLO1TAB23 PO (10:13)
--- NOTE | 2024-12-26 10:16 | DVHPN2 ---
Reviewed: Care Plan, H&P, Labs, Medications, Previous Orders, Radiology Changes from previous H/P or p: No Changes Eyes: No Pain, No Vision change, No Conjunctivae inflammation, No Eyelid inflammation, No Other, No Redness ENT: No Ear pain, No Ear discharge, No Nose pain, No Nose discharge, No Nose congestion, No Mouth pain, No Mouth swelling; Throat pain; No Throat swelling; O ther (Dysphagia) Cardiovascular: No Chest Pain, No Palpitations, No Orthopnea, No Paroxysmal Noc. Dyspnea, No Edema, No Lt Headedness, No Other Respiratory: No Cough, No Dry; Shortness of breath; No SOB with excertion, No Wheezing, No Hemoptysis, No Pleuritic Pain, No Sputum, No Other Gastrointestinal: No Nausea, No Vomiting, No Abdominal Pain, No Diarrhea, No Constipation, No Melena, No Hematochezia, No Other Genitourinary: No Dysuria, No Frequency, No Incontinence, No Hematuria, No Retention, No Other Musculoskeletal: No other, No neck pain, No shoulder pain, No arm pain, No back pain, No hand pain, No leg pain, No foot pain Skin: No Rash, No Lesions, No Jaundice, No Bruising, No Other Objective Vitals Vital Signs Date Time Temp Pulse Resp B/P (MAP) Pulse Ox O2 Delivery O2 Flow Rate FiO2 12/26/24 09:00 97.8 58 18 111/59 (76) 100 97.8 12/25/24 19:50 Room Air* 0 21 Intake/Output Intake and Output 12/26/24 07:00 Intake Total 1590 ml Output Total 0 ml Balance 1590 ml Intake Oral 1590 ml Stool Total 0 ml # Voids 6 Medications Current Medications Medications Dose Ordered Sig/Lisa Route Start Time Stop Time Status Last Admin Dose Admin Nitroglycerin 0.4 mg Q5MINP PRN SL 12/22/24 23:15 Morphine Sulfate 2 mg Q30M PRN IV 12/22/24 23:15 Pantoprazole Sodium 40 mg DAILY IV 12/24/24 10:00 12/26/24 09:00 40 MG Levothyroxine Sodium 112 mcg QAM@0600 PO 12/24/24 06:00 12/25/24 05:27 112 MCG Levothyroxine Sodium 100 mcg DAILY IV 12/24/24 10:00 12/26/24 08:59 100 MCG Propranolol HCl 20 mg TID PO 12/23/24 14:00 12/25/24 21:05 20 MG Amlodipine Besylate 10 mg DAILY PO 12/24/24 10:00 12/25/24 11:33 10 MG Acetaminophen/ Hydrocodone Bitart 1 tab Q6HPRN PRN PO 12/25/24 13:15 12/25/24 14:26 1 TAB Laboratory Results Laboratory Tests 12/22/24 19:40 HgA1c, TSH Test 12/26/24 05:21 Thyroid Stimulating Hormone (TSH) 45.42 uIU/mL (0.55-4.78) H Urinalysis Test 12/23/24 20:56 Urine Color Light-yellow (Yellow) Urine Clarity Clear (Clear) Urine pH 5.5 (5.0-9.0) Urine Specific [place] 1.020 (1.001-1.035) Urine Protein Negative (Negative) Urine Ketones Negative (Negative) Urine Blood Negative /uL (Negative) Urine Nitrite Negative (Negative) Urine Bilirubin Negative (Negative) Urine Urobilinogen Normal mg/dL (Negative) Urine Leukocyte Esterase Negative /uL (Negative) Urine RBC <1 /hpf (0 - 4) Urine Microscopic WBC 5 /HPF (0-5) Urine Squamous Epithelial Cells Few /hpf (<5) Urine Bacteria None seen /hpf (None Seen) Urine Glucose Normal mg/dL (Normal) Labs and/or images reviewed: Labs reviewed by me, Image(s) reviewed by me Assessment/Plan Assessment/Plan Acute dysphagia: GI consult for Dr. Valeri Chandra appreciated, CT chest negative, CT neck pending Severe hypothyroidism TSH 62 came down to 40 at the time of discharge possibly causing dysphagia: Treated with Synthroid p.o. and IV History of hypothyroidism Hypertension History of recurrent UTI Hypertensive urgency 185/74: Amlodipine CT neck negative for any acute pathology Patient will follow up with her new primary Dr Dr.Al Amor Plan discussed with: Patient My Orders Orders - CARISSA BARRON MD Procedure Category Date Status Time Hydrocodone-Acet PHA 12/25/24 In Process 5/325mg Tab ([place] 13:15 Urinalysis LAB 12/25/24 Uncollected 20:42 Date of Service: Dec 26, 2024 Billing Provider: CARISSA BARRON MD Common Visit Codes: [id number] INP/OBS CARE(HIGH) CARISSA BARRON MD Dec 26, 2024 10:16
--- NOTE | 2024-12-26 10:20 | DVHDS2 ---
Discharge Summary Date of Admission Dec 22, 2024 at 23:01 Date of Discharge: Dec 26, 2024 Admitting Diagnosis Difficulty swallowing Wounds: none Labs/Diagnostic Data: Laboratory Results Test 12/26/24 05:21 12/23/24 20:56 12/23/24 09:40 12/23/24 04:21 Thyroid Stimulating Hormone (TSH) 45.42 uIU/mL (0.55-4.78) Urine Color Light-yellow (Yellow) Urine Clarity Clear (Clear) Urine pH 5.5 (5.0-9.0) Urine Specific [place] 1.020 (1.001-1.035) Urine Protein Negative (Negative) Urine Ketones Negative (Negative) Urine Blood Negative /uL (Negative) Urine Nitrite Negative (Negative) Urine Bilirubin Negative (Negative) Urine Urobilinogen Normal mg/dL (Negative) Urine Leukocyte Esterase Negative /uL (Negative) Urine RBC <1 /hpf (0 - 4) Urine Microscopic WBC 5 /HPF (0-5) Urine Squamous Epithelial Cells Few /hpf (<5) Urine Bacteria None seen /hpf (None Seen) Urine Glucose Normal mg/dL (Normal) Prothrombin Time 11.3 sec (9.3-11.8) Prothrombin Time INR 1.07 (0.9-1.15) Hepatitis B Surface Antigen Negative (Negative) Hepatitis C Antibody Negative (Negative) Test 12/23/24 02:52 12/22/24 19:40 Troponin I High Sensitivity 28 ng/L (</=34) B-Type Natriuretic Peptide 16.98 pg/mL (0-100) Free Thyroxine (T4) Calculated 0.36 ng/dL (0.89-1.76) Free Triiodothyronine (T3) pg/mL 1.05 pg/mL (2.3-4.2) White Blood Count 7.6 10^3/uL (4.4-10.8) Red Blood Count 5.08 10^6/uL (4.0-5.20) Hemoglobin 15.3 g/dL (12.2-16.2) Hematocrit 45.1 % (36.0-46.0) Mean Corpuscular Volume 88.8 fL (80.0-100.0) Mean Corpuscular Hemoglobin 30.0 pg (28.0-32.0) Mean Corpuscular Hemoglobin Concent 33.8 g/dL (32.0-36.0) Red Cell Distribution Width 15.0 % (11.8-14.3) Platelet Count 163 10^3/uL (140-450) Mean Platelet Volume 9.0 fL (6.9-10.8) Neutrophils (%) (Auto) 62.8 % (37.0-80.0) Lymphocytes (%) (Auto) 22.8 % (10.0-50.0) Monocytes (%) (Auto) 9.5 % (0.0-12.0) Eosinophils (%) (Auto) 4.0 % (0.0-7.0) Basophils (%) (Auto) 0.9 % (0.0-2.0) Neutrophils # (Auto) 4.8 10 ^3/uL (1.6-8.6) Lymphocytes # (Auto) 1.7 10 ^3/uL (0.4-5.4) Monocytes # (Auto) 0.7 10 ^3/uL (0-1.3) Eosinophils # (Auto) 0.3 10 ^3/uL (0-0.8) Basophils # (Auto) 0.1 10 ^3/uL (0-0.2) Nucleated Red Blood Cells 0.1 % Sodium Level 144 mmol/L (136-145) Potassium Level 3.8 mmol/L (3.5-5.1) Chloride Level 105 mmol/L (98-107) Carbon Dioxide Level 30 mmol/L (20-31) Anion Gap 9 (5-15) Blood Urea Nitrogen 6 mg/dL (9-23) Creatinine 0.91 mg/dL (0.550-1.02) Glomerular Filtration Rate Calc 67 mL/min (>90) BUN/Creatinine Ratio 6.6 (10.0-20.0) Serum Glucose 115 mg/dL (74-106) Calcium Level 9.8 mg/dL (8.7-10.4) Other Laboratory Tests 12/22/24 19:40 Brief Hx & Hospital Course: 74-year-old female with a history of hypertension and hypothyroidism came in complaining of difficulty swallowing. TSH was 62 diagnosed with a severe hypothyroidism treated with the IV and p.o. Synthroid improved to TSH 40. GI consult by Dr. Valeri Chandra CT chest negative CT neck is negative thyroid ultrasound shows atrophic thyroid Gastrografin study negative blood pressure was high 185 treated with the amlodipine patient feels better and wants to go home. 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 aVleri Chandra Operations or Procedures Thyroid ultrasound CT neck CT chest Gastrografin study Condition at Discharge: Fair Final Diagnosis/Problems List Acute dysphagia: GI consult for Dr. Valeri Chandra appreciated, CT chest negative, CT neck pending Severe hypothyroidism TSH 62 came down to 40 at the time of discharge possibly causing dysphagia: Treated with Synthroid p.o. and IV History of hypothyroidism Hypertension History of recurrent UTI Hypertensive urgency 185/74: Amlodipine CT neck negative for any acute pathology Discharge Disposition: Home Discharge Instruct/Medications Diet: Cardiac 2g Na,low cholest Activity: Light activity Follow Up/Referral: Use medications as prescribed Follow up with your new primary Dr Dr. Heller next one week You may need referral to an laborer cutting tool Medications: Synthroid Amlodipine Transmitted to pharmacy Scheduled Amlodipine Besylate (Amlodipine Besylate), 1 TAB PO DAILY Cephalexin (Keflex), 500 MG PO QID, (Reported) Cephalexin Monohydrate (Cephalexin), 1 CAP PO TID Docusate Sodium (Colace), 1 CAP PO BID Levothyroxine Sodium (Levothyroxine Sodium), 0.05 MCG PO DAILY, (Reported) Levothyroxine Sodium (Synthroid Tablet), 1 TAB PO DAILY Levothyroxine Sodium (Synthroid Tablet), 1.5 TAB PO DAILY Propranolol Hcl (Inderal La), 20 MG PO TID, (Reported) Miscellaneous Medications Clotrimazole (Topical) (Clotrimazole Antifungal), 1 % EX, (Reported) Hydrocodone-Acetaminophen (Hydrocodone/Acetaminophen), 1 TAB PO, (Reported) 35 (Time taken for discharge summary 35 minutes) Discharge Statement: "Patient was advised to return to the ER or call 911 if any headaches, dizziness, shortness of breath, chest pain, abdominal pain, bleeding, fevers, or worsening of medical condition. Patient was counseled about treatment plan, medications, possible side effects, patientverbalized understanding. All questions were answered to the best of my ability. This discharge took greater then 30 minutes in planning, reviewing documentation, counseling the patient, and discussing with other team members." ASSESSMENT ASSESSMENT Hospital Course Improved Assessment Acute dysphagia: GI consult for Dr. Valeri Chandra appreciated, CT chest negative, CT neck pending Severe hypothyroidism TSH 62 came down to 40 at the time of discharge possibly causing dysphagia: Treated with Synthroid p.o. and IV History of hypothyroidism Hypertension History of recurrent UTI Hypertensive urgency 185/74: Amlodipine CT neck negative for any acute pathology Date of Service: Dec 26, 2024 Billing Provider: CARISSA BARRON MD Common Visit Codes: [id number]-GNI/OBS DISCH DAY >30min CARISSA BARRON MD Dec 26, 2024 10:20
== END 2024-12-26 11:44 | disposition home or self-care (01) | DRG 645 ==
LOC: EDBD 18:37 → ER 18:37 → OVERFLOW 23:01 → TELE-WESTW 12-23 01:52
PROVIDERS: ADMIT Family Medicine; ATTEND Family Medicine
DX: E03.9 Hypothyroidism, unspecified (principal); R13.12 Dysphagia, oropharyngeal phase; I16.0 Hypertensive urgency; K59.00 Constipation, unspecified; I10 Essential (primary) hypertension; Z88.1 Allergy status to other antibiotic agents; Z88.4 Allergy status to anesthetic agent; Z88.0 Allergy status to penicillin; Z79.2 Long term (current) use of antibiotics; Z79.899 Other long term (current) drug therapy; Z90.710 Acquired absence of both cervix and uterus; Z90.49 Acquired absence of other specified parts of digestive tract; Z98.51 Tubal ligation status; Z87.440 Personal history of urinary (tract) infections; Z82.49 Family history of ischemic heart disease and other diseases of the circulatory system
CPT/HCPCS: 36415; 70490; 71045; 71260; 74220; 76536; 80048; 81001; 83880; 84439; 84443; 84481; 84484; 85025; 85610; 86803; 87340; 93005; 99291; G0378; J2470; J3490

== ENCOUNTER 2025-01-29 12:42 | Inpatient (IN) | payer MEDICARE, OTHER, MEDICAID ==
[~2025-01-29] VITALS: Ht 160 cm; Wt 48.5 kg
[~2025-01-29 12:42] MED LIST changes: +AMLO1TAB23 PO; +LEVO-849 PO
--- NOTE | 2025-01-29 13:16 | ED.PDOC ---
Musculoskeletal HPI Comments This is a 74 year old female presenting to the ED with chief complaint of bilateral foot swelling. Patient reports that she has been experiencing bilateral foot swelling with associated pain and mild intermittent SOB for the past 3 days. Patient denies any chest pain, dizziness, headache, N/V, syncope, cough, fall, or injury. Chief Complaint: Extremity Swelling Time Seen by MD: 13:15 Primary Care Provider: none Reviewed Notes: Nurses Notes, Medications, Allergies Allergies: Coded Allergies: Erythromycin (Verified Allergy, Unknown, 12/13/14) Gentamicin (Verified Adverse Reaction, Severe, 08/01/13) Penicillins (Verified Adverse Reaction, Severe, 08/01/13) Streptomycin (Verified Adverse Reaction, Severe, 08/01/13) Home Meds Active Scripts Levothyroxine Sodium (SYNTHROID TABLET) 100 Mcg Tb, 1.5 TAB PO DAILY, #90 TAB 5 Refills Prov:CARISSA BARRON MD 12/26/24 Amlodipine Besylate (Amlodipine Besylate) 10 Mg Tab, 1 TAB PO DAILY, #30 TAB 5 Refills Prov:CARISSA BARRON MD 12/26/24 Docusate Sodium (Colace) 100 Mg Cap, 1 CAP PO BID, #30 CAP Prov:FERN MCCRARY 11/25/24 Cephalexin Monohydrate (Cephalexin) 500 Mg Cap, 1 CAP PO TID, #21 CAP Prov:FERN MCCRARY 11/25/24 Levothyroxine Sodium (SYNTHROID TABLET) 50 Mcg Tb, 1 TAB PO DAILY, #30 TAB Prov:FERN MCCRARY 11/05/22 Reported Medications Clotrimazole (Topical) (CLOTRIMAZOLE ANTIFUNGAL) 1 %/F Cre, 1 % EX, CRE 08/02/13 Hydrocodone-Acetaminophen (Hydrocodone/Acetaminophen) 1 Tab Tab, 1 TAB PO, TAB 08/02/13 Cephalexin (Keflex) 500 Mg Cap, 500 MG PO QID, CAP 08/02/13 Levothyroxine Sodium (Levothyroxine Sodium) 25 Mcg Tab, 0.05 MCG PO DAILY, TAB 08/02/13 Propranolol Hcl (Inderal La) 60 Mg Cap, 20 MG PO TID, CAP 08/02/13 Information Source: Patient Mode of Arrival: Ambulatory Location: Bilateral Extremity Location: Foot Timing: Days Prehospital treatment: None Severity: Moderate Able to Move Extremity: Yes Bear Weight: Fully Pain: Moderate Mechanism: Spontaneous Circumstances: Spontaneous Onset of Symptoms: Spontaneous Symptoms: Swelling, Pain DVT Risk Factors: NONE Past Medical History PAST MEDICAL HISTORY: HTN, Thyroid, UTI'S Past Medical History (Other): Mitral Valve Prolapse Surgical History: BTL, Cholecystectomy, Hernia Repair, Hysterectomy 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 UPHOLSTERER History: Denies all CHAIR UPHOLSTERER Hx, No Pertinent CHAIR UPHOLSTERER History Family History Family History: Reviewed,noncontributory to illness Social History Smoker: Non-Smoker, Quit Greater Than 1 Year Alcohol: Denies ETOH Use Drugs: Denies Drug Use Lives In: Home Constitutional: denies: chills, diaphoresis, fatigue, fever, malaise, sweats, weakness, others EENTM: denies: blurred vision, double vision, ear bleeding, ear discharge, ear drainage, ear pain, ear ringing, eye pain, eye redness, hearing loss, mouth pain, mouth swelling, nasal discharge, nose bleeding, nose congestion, nose pain, photophobia, tearing, throat pain, throat swelling, voice changes, others Respiratory: reports: shortness of breath; denies: cough, hemoptysis, orthopnea, SOB at rest, SOB with excertion, stridor, wheezing, others Cardiovascular: reports: edema; denies: chest pain, dizzy spells, diaphoresis, Dyspnea on exertion, irregular heart beat, left arm pain, lightheadedness, palpitations, PND, syncope, others Gastrointestinal: denies: abdomen distended, abdominal pain, blood streaked bowels, constipated, diarrhea, dysphagia, difficulty swallowing, hematemesis, melena, nausea, poor appetite, poor fluid intake, rectal bleeding, rectal pain, vomiting, others Genitourinary: denies: abnormal vagina bleeding, burning, dyspareunia, dysuria, flank pain, frequency, hematuria, incontinence, pain, , vagina disch arge, urgency, others Neurological: denies: dizziness, fainting, headache, left sided numbness, left sided weakness, numbness, paresthesia, pre-existing deficit, right sided numbness, right sided weakness, seizure, speech problems, tingling, tremors, weakness, others Musculoskeletal: reports: others (Bilateral foot pain); denies: back pain, gout, joint pain, joint swelling, muscle pain, muscle stiffness, neck pain Integumetry: denies: bruises, change in color, change in hair/nails, dryness, laceration, lesions, lumps, rash, wounds, others Allergic/Immunocompromised: denies: Difficulty Healing, Frequent Infections, Hives, Itching, others Hematologic/Lymphatic: denies: anemia, blood clots, easy bleeding, easy bruising, swollen glands, others Endocrine: denies: excessive hunger, excessive sweating, excessive thirst, excessive urination, flushing, intolerance to cold, intolerance to heat, unexplained weight gain, unexplained weight loss, others Psychiatric: denies: anxiety, bipolar disorder, depression, hopeless, panic disorder, schizophrenia, sleepless, suicidal, others All Other Systems: Reviewed and Negative Physical Exam General Appearance: No Apparent Distress, Normal HEENT: Normal ENT Inspection, PERRL/EOMI, Pharynx Normal, TMs Normal Neck: Full Range of Motion, Non-Tender, Normal, Normal Inspection Respiratory: Chest Non-Tender, Lungs Clear, No Accessory Muscle Use, No Respiratory Distress, Normal Breath Sounds Cardiovascular: No Edema, No JVD, No Murmur, No Gallop, Normal Peripheral Pulses, Regular Rate/Rhythm Breast Exam: Deferred Gastrointestinal: No Organomegaly, Non Tender, No Pulsatile Mass, Normal Bowel Sounds, Soft Genitalia: Deferred Pelvic: Deferred Rectal: Deferred Extremities: Leg edema, Normal capillary refill, Normal inspection, Normal range of motion, Non-tender, Pedal edema, Swelling, Tender Musculoskeletal : Apperance: Normal Neurologic: Alert, planer operator / grader II-XII nml as Tested, No Motor Deficits, Normal Affect, Normal Mood, No Sensory Deficits Cerebellar Function: Normal Reflexes: Normal Skin: Dry, Normal Color, Warm Peripheral Pulses: 1+ carotid (R), 1+ carotid (L) Lymphatic: No Adenopathy Was a procedure done? Was a procedure done?: No Differential Diagnosis EXT Differential Diagnosis: CHF, Deep Vein Thrombosis, Other Other Differential Diagnosis Pulmonary embolism X-Ray, Labs, Meds, VS Vital Signs Date Time Temp Pulse Resp B/P (MAP) Pulse Ox O2 Delivery O2 Flow Rate FiO2 01/29/25 19:50 Room Air* 0 21 01/29/25 15:58 113 01/29/25 15:16 98.2 112 16 131/69 (89) 100 98.2 01/29/25 12:44 98.5 121 15 125/70 96 98.5 Lab Test 01/29/25 15:53 01/29/25 13:17 Range/Units Urine Color Yellow Yellow Urine Clarity Turbid H Clear Urine pH 5.5 5.0-9.0 Urine Specific [place] 1.019 1.001-1.035 Urine Protein 1+ H Negative Urine Ketones Negative Negative Urine Blood Negative Negative /uL Urine Nitrite Negative Negative Urine Bilirubin Negative Negative Urine Urobilinogen Normal Negative mg/dL Urine Leukocyte Esterase Trace Negative /uL Urine RBC 3 0 - 4 /hpf Urine Microscopic WBC 6 H 0-5 /HPF Urine Squamous Epithelial Cells Few <5 /hpf Urine Calcium Oxalate Crystals Mod None Seen Urine Bacteria None seen None Seen /hpf Urine Hyaline Casts Few 0 - 2 /lpf Urine Mucus Few None Seen Urine Glucose Normal Normal mg/dL White Blood Count 7.5 4.4-10.8 10^3/uL Red Blood Count 4.85 4.0-5.20 10^6/uL Hemoglobin 14.5 12.2-16.2 g/dL Hematocrit 43.1 36.0-46.0 % Mean Corpuscular Volume 88.8 80.0-100.0 fL Mean Corpuscular Hemoglobin 29.9 28.0-32.0 pg Mean Corpuscular Hemoglobin Concent 33.6 32.0-36.0 g/dL Red Cell Distribution Width 13.8 11.8-14.3 % Platelet Count 188 140-450 10^3/uL Mean Platelet Volume 9.3 6.9-10.8 fL Neutrophils (%) (Auto) 53.1 37.0-80.0 % Lymphocytes (%) (Auto) 25.9 10.0-50.0 % Monocytes (%) (Auto) 18.7 H 0.0-12.0 % Eosinophils (%) (Auto) 1.6 0.0-7.0 % Basophils (%) (Auto) 0.7 0.0-2.0 % Neutrophils # (Auto) 4.0 1.6-8.6 10 ^3/uL Lymphocytes # (Auto) 1.9 0.4-5.4 10 ^3/uL Monocytes # (Auto) 1.4 H 0-1.3 10 ^3/uL Eosinophils # (Auto) 0.1 0-0.8 10 ^3/uL Basophils # (Auto) 0 0-0.2 10 ^3/uL Nucleated Red Blood Cells 0.0 % D-Dimer, Quantitative 1.26 H 0.0-0.49 mg/L FEU Sodium Level 143 136-145 mmol/L Potassium Level 3.8 3.5-5.1 mmol/L Chloride Level 106 98-107 mmol/L Carbon Dioxide Level 27 20-31 mmol/L Anion Gap 10 5-15 Blood Urea Nitrogen 12 9-23 mg/dL Creatinine 0.76 0.550-1.02 mg/dL Glomerular Filtration Rate Calc 83 >90 mL/min BUN/Creatinine Ratio 15.8 10.0-20.0 Serum Glucose 127 H 74-106 mg/dL Calcium Level 10.1 8.7-10.4 mg/dL Magnesium Level 2.0 1.6-2.6 mg/dL Total Bilirubin 2.4 H 0.2-1.0 mg/dL Aspartate Amino Transferase (AST) 72 H 13-40 U/L Alanine Aminotransferase (ALT) 96 H 7-40 U/L Alkaline Phosphatase 84 46-116 U/L Troponin I High Sensitivity 36 *H </=34 ng/L B-Type Natriuretic Peptide 51.26 0-100 pg/mL Total Protein 7.0 5.7-8.2 g/dL Albumin 4.4 3.2-4.8 g/dL Thyroid Stimulating Hormone (TSH) 0.02 L 0.55-4.78 uIU/mL Current Medications Medications (Trade) Dose Ordered Sig/Lisa Route Start Time Stop Time Status Last Admin Aspirin 162 mg ONCE ONCE PO 01/29/25 13:15 01/29/25 13:16 DC 01/29/25 15:35 [place] [id number] Ph: [phone] DIAGNOSTIC IMAGING Diagnostic Imaging Report : [id number] Signed PATIENT: JANE ESCUDERO ACCT: [id number] UNIT: [id number] : 1950 LOC: ER ROOM / BED: / AGE / SEX: 74 / F ADM STATUS: REG ER SERVICE 1308 ORDERING PHYSICIAN: STEPHANIE DONALD MD PROCEDURE(s): CXR2 - CHEST TWO VIEWS ROUTINE REASON: SOB ORDER NUMBER(s): [id number], ACCESSION NUMBER(s): [id number] XY CHEST TWO VIEWS ROUTINE CLINICAL HISTORY: SOB COMPARISON: XY CHEST TWO VIEWS ROUTINE on DOS: 01/22/23 TECHNIQUE: Frontal and lateral view of the chest was obtained FINDINGS: Lines and Tubes: None Lungs: No focal consolidation. Pleura: No effusion. No pneumothorax. Cardiomediastinal contours: Unremarkable Bones: No acute osseous abnormality. IMPRESSION: 1. No acute cardiopulmonary disease. 2. No significant change from 12/22/2024 ATED BY: SHEFALI RM Jr., DO DICTATED DATE/TIME: 01/29/251347 SIGNED BY: SHEFALI RM Jr., SIGNED DATE/TIME: 01/29/251347 CC: X-Ray, Labs, Meds, VS Comment Course in the emergency department eventful patient came in because of swelling extremity and shortness of breath her feet are swollen very painful The blood pressure is 125/70 the pulse is 121 The chest x-ray is negative EKG sinus tachycardia at 1:13 a.m. left atrial enlargement and left axis deviation Troponin 36 CBC negative D-dimer 1.26 elevated patient will be sent for CT angio no pulmonary embolism BNP 51. TSH 0. 0 two Magnesium 2.0 Liver enzymes elevated total bilirubin 2.4 Blood sugar 127 Patient will be admitted for further care Images Reviewed?: Images reviewed and evaluated by me Time of 1ST Reevaluation: 14:14 Reevaluation 1ST: Unchanged Time of 2ND Reevaluation: 19:45 Reevaluation 2ND: Unchanged Patient Education/Counseling: Diagnosis, Treatment, Prognosis Family Education/Counseling: Diagnosis, Treatment, Prognosis, No Family Present Departure 1 Departure Time of Disposition: 21:51 Impression: Primary Impression: Shortness of breath Additional Impressions: Tricuspid regurgitation Qualified Codes: I07.1 - Rheumatic tricuspid insufficiency Fluid retention in legs Elevated d-dimer Hyperbilirubinemia Iatrogenic hyperthyroidism Disposition: ADMITTED INPATIENT Admit to: [facility] Condition: Serious Critical Care Note Critical Care Time?: No Stability Stability form required: Yes Heart Score Heart Score: Heart Score Response (Comments) Value History Moderate Suspicious 1 EKG Normal 0 Age >65 2 Risk Factors 1 or 2 risk factors 1 Troponin 1-2 x's Normal limit 1 Total 5 I personally scribed for STEPHANIE DONALD MD ([email or web address]) on 01/29/25 at 13:16. Electronically submitted by Kamran Danielle ([email or web address]). I personally scribed for STEPHANIE DONALD MD ([email or web address]) on 01/29/25 at 13:57. Electronically submitted by Kamran Danielle ([email or web address]). STEPHANIE DONALD MD Jan 29, 2025 13:16
[2025-01-29 13:29] LABS: Hematocrit 43.1 % (36.0-46.0); Hemoglobin 14.5 g/dL (12.2-16.2); Mean Corpuscular Hemoglobin 29.9 pg (28.0-32.0); Mean Corpuscular Volume 88.8 fL (80.0-100.0); Nucleated Red Blood Cells % 0.0 %
[2025-01-29 13:42] LABS: Albumin 4.4 g/dL (3.2-4.8); Alkaline Phosphatase 84 U/L (46-116); Anion Gap 10 (5-15); BUN/Creatinine Ratio 15.8 (10.0-20.0); Blood Urea Nitrogen 12 mg/dL (9-23); Calcium 10.1 mg/dL (8.7-10.4); Carbon Dioxide 27 mmol/L (20-31); Chloride 106 mmol/L (98-107); Magnesium 2.0 mg/dL (1.6-2.6); Potassium 3.8 mmol/L (3.5-5.1); Sodium 143 mmol/L (136-145); Total Protein 7.0 g/dL (5.7-8.2)
[2025-01-29 13:43] LABS: Alanine Aminotransferase 96 U/L (7-40); Glucose 127 mg/dL (74-106)
[2025-01-29 13:44] LABS: Bilirubin, Total 2.4 mg/dL (0.2-1.0)
--- NOTE | 2025-01-29 13:51 | DVH ---
XY CHEST TWO VIEWS ROUTINE CLINICAL HISTORY: SOB COMPARISON: XY CHEST TWO VIEWS ROUTINE on DOS: 01/22/23 TECHNIQUE: Frontal and lateral view of the chest was obtained FINDINGS: Lines and Tubes: None Lungs: No focal consolidation. Pleura: No effusion. No pneumothorax. Cardiomediastinal contours: Unremarkable Bones: No acute osseous abnormality. IMPRESSION: 1. No acute cardiopulmonary disease. 2. No significant change from 12/22/2024
[2025-01-29 16:14] LABS: Urine Protein, UAD 1+ (Negative)
[2025-01-29] MEDS: SODIUM CHLORIDE 0.9% 1,000 ML IV ONE (16:28)
[2025-01-29] MEDS: IOHEXOL 350 MG/ML 100ML IJ ONE (18:32)
--- NOTE | 2025-01-29 20:35 | DVH ---
EXAM: CT CT ANGIO CHEST CONTRAST History: Pulmonary embolism Comparison Study: CT CHEST WITH CONTRAST on DOS: 12/23/24, CT NECK WITH CONTRAST SOFT on DOS: 08/08/22 TECHNIQUE: A digital activities director scouting image was obtained. During the uneventful, intravenous administration of c ontrast material, multislice data acquisition was obtained through the chest. 3-D postprocessing is performed by technologist including MIP imaging Radiation Dose : CTDI vol 6.14 mGy, DLP 251.69 mGy*cm. Findings: Evaluation is degraded by respiratory motion. Lungs: There is scattered mild atelectasis/ scarring. Pleura: Unremarkable Heart/Great vessels: No cardiomegaly or pericardial effusion. No CT evidence of acute pulmonary embol ism. Moderate atherosclerotic aortic calcifications. Mediastinum: Unremarkable. Soft tissues/Bones: Unremarkable Upper abdomen: Prior cholecystectomy with unchanged biliary ductal dilatation. Impression: 1. No CT evidence of pulmonary embolism or acute intrathoracic abnormality. Incidental findings as d etailed.
[2025-01-29] MEDS: PROPRANOLOL HCL 20 MG TAB PO SCH (22:00)
[2025-01-29] MEDS ORDERED: ONDANSETRON HCL 4 MG/2 ML VIAL IV PRN (22:00)
--- NOTE | 2025-01-29 22:47 | DVHHP2 ---
History of Present Illness Reason for Visit: Lower extremity swelling History of Present Illness 74-year-old female presents for evaluation of bilateral lower extremity swelling. Patient reports a three day history of worsening bilateral lower extremity with mild shortness for breath. Patient also reports intermittent palpitations. No chest pain at the moment. No other acute complaints. Past Medical History Thyroid, hypertension, mitral valve prolapse Past Surgical History Cholecystectomy, BTL, hernia repair Family History Noncontributory Smoke: No ALCOHOL: none Drugs: None Lives: with Family Review of Systems Review of Systems Review of systems are currently negative otherwise addressed in HPI. Allergies: Coded Allergies: Erythromycin (Verified Allergy, Unknown, 12/13/14) Gentamicin (Verified Adverse Reaction, Severe, 08/01/13) Penicillins (Verified Adverse Reaction, Severe, 08/01/13) Streptomycin (Verified Adverse Reaction, Severe, 08/01/13) Medications Current Medications Medications Dose Ordered Sig/Lisa Route Start Time Stop Time Status Last Admin Dose Admin Propranolol HCl 20 mg TID PO 01/29/25 22:00 Amlodipine Besylate 10 mg DAILY PO 01/30/25 10:00 Aspirin 81 mg DAILY PO 01/30/25 10:00 Ondansetron HCl 4 mg Q4HP PRN IV 01/29/25 22:00 Acetaminophen 650 mg Q6HP PRN PO 01/29/25 22:00 Exam Vital Signs Vital Signs Date Time Temp Pulse Resp B/P (MAP) Pulse Ox O2 Delivery O2 Flow Rate FiO2 01/29/25 20:21 97.6 132 16 146/76 (99) 99 97.6 01/29/25 19:50 Room Air* 0 21 Exam Gen: 74-year-old female in no apparent distress. Skin: Warm, dry, normal color and texture, no rash. HEENT: Normocephalic atraumatic, mucous membranes moist and pink. Neck: Cervical and supraclavicular nodes normal without enlargement, trachea is midline, thyroid gland is normal without masses. Pulmonary: Clear to auscultation and percussion bilaterally. Cardiac: Regular rate and rhythm. No murmur Abdomen: Soft, nontender, nondistended, bowel sounds present all 4 quadrants, no guarding, no rigidity, no organomegaly. Extremities: No cyanosis, clubbing, trace edema on bilateral lower extremities Neuro: Cranial nerves II through XII grossly intact, normal affect and speech, no focal motor deficits. Labs/Xrays ORDERING PHYSICIAN: CARISSA BARRON MD PROCEDURE(s): NKICT - NECK WITHOUT CONTRAST REASON: Dysphagia ORDER NUMBER(s): [id number], ACCESSION NUMBER(s): [id number] EXAM: CT NECK WITHOUT CONTRAST INDICATION: Dysphagia TECHNIQUE: Volumetric multidetector CT images of the cervical soft tissues were obtained after administration of 100 ml low osmolar intravenous contrast. All CT scans at this facility use dose modulation, iterative reconstruction, and/or weight based dosing when appropriate to reduce radiation dose to as low as reasonably achievable. COMPARISON: CT S.T. NECK W on DOS: 05/02/24 FINDINGS: [ORBITS, PARANASAL SINUSES, AND SKULL BASE]: Normal. [NASOPHARYNX: Normal. [SUPRAHYOID NECK]: No abnormality of the retropharyngeal spaces or parapharyngeal spaces. Question slight undulating contour along the posterior aspect of the base of the tongue consider direct visualization if clinically indicated to exclude malignancy. No discrete measurable mass. The parotid and submandibular glands are normal. [INFRAHYOID NECK]: Normal appearance of the larynx, hypopharynx, and supraglottis. [THYROID]: Normal appearance of the thyroid gland. [LYMPH NODES]: There is no pathologically enlarged or necrotic lymph nodes. [VASCULATURE STRUCTURES]: The vascular structures of the neck appear patent. [OTHER]: The visualized lung apices are clear. The limited visualized portions of the brain are unremarkable. The osseous structures are unremarkable. IMPRESSION: 1. No evidence of cervical mass lesion, pathologically enlarged lymph nodes or fluid collection. 2. Question slight undulating contour along the posterior aspect of the base of the tongue consider direct visualization if clinically indicated to exclude malignancy. 3. No discrete measurable mass. RING PHYSICIAN: CARISSA BARRON MD PROCEDURE(s): THYDU - THYROID REASON: Severe hypothyroidism ORDER NUMBER(s): [id number], ACCESSION NUMBER(s): [id number] ULTRASOUND SOFT TISSUE HEAD AND NECK CLINICAL INDICATION: Severe hypothyroidism TECHNIQUE: Multiple real time sonographic images of the thyroid were obtained. Comparison: CT S.T. NECK W on DOS: 05/02/24, CT S.T. NECK on DOS: 05/02/24, US THYROID SOFT TISSUE NECK on DOS: 05/02/24, US THYROID SOFT TISSUE NECK on DOS: 02/07/24, CT S.T. NECK W on DOS: 02/01/24 FINDINGS: The right thyroid gland measures 4.2 x 1.2 x 1.0 cm. The left thyroid gland measures approximately 3.9 x 1.4 x 0.8 cm. The isthmus measures 0.1 cm. IMPRESSION: Heterogeneous and atrophic appearance of the thyroid gland. [employer] TI-RADS Categories and Recommendations (2017): TR1: 0 points, Benign, No FNA TR2: 2 points, Not suspicious, No FNA TR3: 3 points, Mildly suspicious, FNA if > or = 2.5 cm, Follow if > or = 1.5 cm TR4: 4-6 points, Moderately Suspicious, FNA if > or = 1.5 cm, Follow if > or = 1.0 cm TR5: 7+ points, Highly Suspicious, FNA if > or = 1.0 cm, Follow if > or = 0.5 cm Follow-up ultrasound guidelines: TR5: yearly for 5 years, if no growth or change in TI-RADS level TR4: at 1, 2, 3 and 5 years, if no growth or change in TI-RADS level TR3: at 1, 3 and 5 years, if no growth or change in TI-RADS level If increased but below threshold for FNA, repeat in one year. Source: ACR Thyroid Imaging, Reporting and Data System (TI-RADS): White Paper of the ACR TI-RADS Committee. Destineeler et al., J Am Alec Radiol 2017;14:587-595. ATED BY: RALPH REGAN MD ORDERING PHYSICIAN: STEPHANIE DONALD MD PROCEDURE(s): CXR2 - CHEST TWO VIEWS ROUTINE REASON: SOB ORDER NUMBER(s): [id number], ACCESSION NUMBER(s): [id number] XY CHEST TWO VIEWS ROUTINE CLINICAL HISTORY: SOB COMPARISON: XY CHEST TWO VIEWS ROUTINE on DOS: 01/22/23 TECHNIQUE: Frontal and lateral view of the chest was obtained FINDINGS: Lines and Tubes: None Lungs: No focal consolidation. Pleura: No effusion. No pneumothorax. Cardiomediastinal contours: Unremarkable Bones: No acute osseous abnormality. IMPRESSION: 1. No acute cardiopulmonary disease. 2. No significant change from 12/22/2024 ATED BY: SHEFALI RM Jr., DO DICTATED DATE/TIME: 01/29/251347 SIGNED BY: SHEFALI RM Jr., SIGNED DATE/TIME: 01/29/258 CC: ORDERING PHYSICIAN: STEPHANIE DONALD MD PROCEDURE(s): CTACH - CT ANGIO CHEST CONTRAST REASON: Pulmonary embolism ORDER NUMBER(s): [id number], ACCESSION NUMBER(s): [id number] EXAM: CT CT ANGIO CHEST CONTRAST History: Pulmonary embolism Comparison Study: CT CHEST WITH CONTRAST on DOS: 12/23/24, CT NECK WITH CONTRAST SOFT on DOS: 08/08/22 TECHNIQUE: A digital laboratory director image was obtained. During the uneventful, intrave nous administration of contrast material, multislice data acquisition was obtained through the chest. 3-D postprocessing is performed by technologist including MIP imaging Radiation Dose : CTDI vol 6.14 mGy, DLP 251.69 mGy*cm. Findings: Evaluation is degraded by respiratory motion. Lungs: There is scattered mild atelectasis/ scarring. Pleura: Unremarkable Heart/Great vessels: No cardiomegaly or pericardial effusion. No CT evidence of acute pulmonary embolism. Moderate atherosclerotic aortic calcifications. Mediastinum: Unremarkable. Soft tissues/Bones: Unremarkable Upper abdomen: Prior cholecystectomy with unchanged biliary ductal dilatation. Impression: 1. No CT evidence of pulmonary embolism or acute intrathoracic abnormality. Incidental findings as detailed. Labs Test 01/29/25 20:44 01/29/25 15:53 01/29/25 13:17 Range/Units Troponin I High Sensitivity 31 </=34 ng/L Urine Color Yellow Yellow Urine Clarity Turbid H Clear Urine pH 5.5 5.0-9.0 Urine Specific [place] 1.019 1.001-1.035 Urine Protein 1+ H Negative Urine Ketones Negative Negative Urine Blood Negative Negative /uL Urine Nitrite Negative Negative Urine Bilirubin Negative Negative Urine Urobilinogen Normal Negative mg/dL Urine Leukocyte Esterase Trace Negative /uL Urine RBC 3 0 - 4 /hpf Urine Microscopic WBC 6 H 0-5 /HPF Urine Squamous Epithelial Cells Few <5 /hpf Urine Calcium Oxalate Crystals Mod None Seen Urine Bacteria None seen None Seen /hpf Urine Hyaline Casts Few 0 - 2 /lpf Urine Mucus Few None Seen Urine Glucose Normal Normal mg/dL White Blood Count 7.5 4.4-10.8 10^3/uL Red Blood Count 4.85 4.0-5.20 10^6/uL Hemoglobin 14.5 12.2-16.2 g/dL Hematocrit 43.1 36.0-46.0 % Mean Corpuscular Volume 88.8 80.0-100.0 fL Mean Corpuscular Hemoglobin 29.9 28.0-32.0 pg Mean Corpuscular Hemoglobin Concent 33.6 32.0-36.0 g/dL Red Cell Distribution Width 13.8 11.8-14.3 % Platelet Count 188 140-450 10^3/uL Mean Platelet Volume 9.3 6.9-10.8 fL Neutrophils (%) (Auto) 53.1 37.0-80.0 % Lymphocytes (%) (Auto) 25.9 10.0-50.0 % Monocytes (%) (Auto) 18.7 H 0.0-12.0 % Eosinophils (%) (Auto) 1.6 0.0-7.0 % Basophils (%) (Auto) 0.7 0.0-2.0 % Neutrophils # (Auto) 4.0 1.6-8.6 10 ^3/uL Lymphocytes # (Auto) 1.9 0.4-5.4 10 ^3/uL Monocytes # (Auto) 1.4 H 0-1.3 10 ^3/uL Eosinophils # (Auto) 0.1 0-0.8 10 ^3/uL Basophils # (Auto) 0 0-0.2 10 ^3/uL Nucleated Red Blood Cells 0.0 % D-Dimer, Quantitative 1.26 H 0.0-0.49 mg/L FEU Sodium Level 143 136-145 mmol/L Potassium Level 3.8 3.5-5.1 mmol/L Chloride Level 106 98-107 mmol/L Carbon Dioxide Level 27 20-31 mmol/L Anion Gap 10 5-15 Blood Urea Nitrogen 12 9-23 mg/dL Creatinine 0.76 0.550-1.02 mg/dL Glomerular Filtration Rate Calc 83 >90 mL/min BUN/Creatinine Ratio 15.8 10.0-20.0 Serum Glucose 127 H 74-106 mg/dL Calcium Level 10.1 8.7-10.4 mg/dL Magnesium Level 2.0 1.6-2.6 mg/dL Total Bilirubin 2.4 H 0.2-1.0 mg/dL Aspartate Amino Transferase (AST) 72 H 13-40 U/L Alanine Aminotransferase (ALT) 96 H 7-40 U/L Alkaline Phosphatase 84 46-116 U/L B-Type Natriuretic Peptide 51.26 0-100 pg/mL Total Protein 7.0 5.7-8.2 g/dL Albumin 4.4 3.2-4.8 g/dL Thyroid Stimulating Hormone (TSH) 0.02 L 0.55-4.78 uIU/mL SEPSIS Sepsis Screen Date sepsis recognized/suspect: Jan 29, 2025 Time Sepsis recognized/suspect: 1245 Recent Procedure: No On Antibiotic Therapy: No Respiratory Rate >20: No Heart Rate >90: Yes Temp<36 C (96.8 F) or >38.3 C: No SBP <90 or MAP <65 mmHG: No New Acute Mental Status Change: No Is the patient on CPAP, BIPAP,: No Physician Orders Ct Angio Chest Contrast (01/29/25 16:14) Admit (01/29/25 19:59) Propranolol Hcl Tablet (Inderal Tablet) (01/29/25 22:00) Amlodipine Tablet (Norvasc Tablet) (01/30/25 10:00) Thyroid Panel (01/29/25 21:49) Aspirin Tablet (01/30/25 10:00) Basic Metabolic Panel (01/30/25 04:00) Ondansetron Hcl (Zofran) (01/29/25 22:00) Cardiac Diet-2gna,Lofat,Lochol (01/30/25 Breakfast) Echo 2d Mode Cardiac Dop (01/29/25 21:49) Condition: Fair (01/29/25 21:49) Acetaminophen Tablet (Tylenol Tablet) (01/29/25 22:00) Bedrest With Bathroom Privileg (01/29/25 21:49) Bilat Lower Dvt (01/29/25 22:41) Vital Signs Date Time Temp Pulse Resp B/P (MAP) Pulse Ox O2 Delivery O2 Flow Rate FiO2 01/29/25 20:21 97.6 132 16 146/76 (99) 99 97.6 01/29/25 19:50 Room Air* 0 21 01/29/25 15:58 113 01/29/25 15:16 98.2 112 16 131/69 (89) 100 98.2 Laboratory Tests Test 01/29/25 13:17 White Blood Count 7.5 10^3/uL (4.4-10.8) Medications Medications Dose Ordered Sig/Lisa Route Start Time Stop Time Status Last Admin Dose Admin Aspirin 162 mg ONCE ONCE PO 01/29/25 13:15 01/29/25 13:16 DC 01/29/25 15:35 162 MG Assessment/Plan Assessment/Plan Assessment Hyperthyroid Mild troponin elevation Lower extremity edema Hypertension Plan Admit the patient to [facility] to the hospitalist Echocardiogram pending Thyroid panel pending Hold levothyroxine Continue treatment per orders. Plan discussed with: Patient My Orders Orders - ANGLE WATTS Procedure Category Date Status Time Admit ADMIT 01/29/25 Transmitted 19:59 Propranolol Hcl PHA 01/29/25 In Process Tablet (Inderal 22:00 Amlodipine Tablet PHA 01/30/25 In Process (Norvasc Tablet) 10:00 Thyroid Panel LAB 01/29/25 In Process 21:49 Aspirin Tablet PHA 01/30/25 In Process 10:00 Basic Metabolic Panel LAB 01/30/25 Verified 04:00 Ondansetron Hcl PHA 01/29/25 In Process (Zofran) 22:00 Cardiac DIET 01/30/25 Transmitted Diet-2gna,Lofat,Lochol Breakfast Echo 2d Mode Cardiac US 01/29/25 Logged DOP 21:49 Condition: Fair MARA 01/29/25 In Process 21:49 Acetaminophen Tablet PHA 01/29/25 In Process (Tylenol Tablet) 22:00 Bedrest With Bathroom MARA 01/29/25 In Process Privileg 21:49 Bilat Lower Dvt US 01/29/25 Verified 22:41 Date of Service: Jan 29, 2025 Billing Provider: ANGLE WATTS Common Visit Codes: [id number] INP/OBS CARE (HIGH) ANGLE WATTS AGACNP Jan 29, 2025 22:47
--- NOTE | 2025-01-29 23:13 | DVH ---
Bilateral lower extremity venous duplex Clinical History: r/o dvt Comparison: None Technique: Duplex Doppler evaluation of the deep venous systems of both lower extremities from the common femora l veins to the popliteal veins including color Doppler and spectral/pulsed waveform analysis was perf ormed. Findings: RIGHT SIDE: The common femoral vein demonstrates appropriate compressibility and waveform variability. There is compressibility/patency of the great saphenous vein at the proximal thigh. The femoral vein demonstrates appropriate compressibility and waveform variability. The deep femoral vein demonstrates appropriate compressibility and waveform variability. The popliteal vein demonstrates appropriate compressibility and waveform variability. There is normal compressibility at the tibioperoneal trunk. LEFT SIDE: The common femoral vein demonstrates appropriate compressibility and waveform variability. There is compressibility/patency of the great saphenous vein at the proximal thigh. The femoral vein demonstrates appropriate compressibility and waveform variability. The deep femoral vein demonstrates appropriate compressibility and waveform variability. The popliteal vein demonstrates appropriate compressibility and waveform variability. There is normal compressibility at the tibioperoneal trunk. Impression: 1. No right or left femoropopliteal venous thrombosis.
[2025-01-29 23:44] VITALS: BP 118/75; PULSE 122; RESP 16; TEMP 97.8; O2SAT 96
[2025-01-30] VITALS (7 sets, daily range): BP systolic 107–126; BP diastolic 55–75; PULSE 76–122; RESP 16–18; TEMP 97.1–98.1; O2SAT 96–100
--- NOTE | 2025-01-30 00:26 | ECG ---
[facility] Test Date: 2025-01-29 Test Time: 15:58:57 Pat Name: JANE ESCUDERO Department: ED Room: [facility] Gender: F Family Program Specialist: ely : 1950 Requested By: STEPHANIE DONALD Order Number: [id number] Reading MD: Harley Verduzco Measurements Intervals [place] Rate: 113 P: 70 IL: 138 QRS: -18 QRSD: 94 T: 31 QT: 323 QTc: 443 Interpretive Statements Sinus tachycardia Left atrial enlargement Borderline left axis deviation Consider anterior infarct Baseline wander in lead(s) II,V2,V6 Electronically Signed On 02-05-2025 13:43:45 PDT by Harley Verduzco Please click the below link to view image of tracing.
[2025-01-30 04:43] LABS: Anion Gap 11 (5-15); Carbon Dioxide 27 mmol/L (20-31); Potassium 4.0 mmol/L (3.5-5.1); Sodium 145 mmol/L (136-145)
[2025-01-30 04:44] LABS: Calcium 9.6 mg/dL (8.7-10.4)
[2025-01-30 04:49] LABS: BUN/Creatinine Ratio 18.6 (10.0-20.0); Blood Urea Nitrogen 11 mg/dL (9-23); Glucose 99 mg/dL (74-106)
[2025-01-30 04:55] LABS: Chloride 107 mmol/L (98-107)
--- NOTE | 2025-01-30 17:26 | DVHPN2 ---
Assessment/Plan Assessment/Plan progress note 74 yo F with hyperthyroidism s/p radioactive iodine now hypothyroid on synthroid, HTN, recent admission 01/04 for dysphagia admitted for leg swelling. off note patient recently started on amlodipine on that admission. TSH 0.02, on levothyroxine. DVTUS negative, CTPE negative. BNP 51. previously seen by GI but did not get scoped as patient was hesitant. 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, possible iatrogenic hyperthyroidism now frailty type 2 AR demand ischemia transaminitis HTN dc amlodipine, transition to hctz hold Lasix, leg elevation t3 t4, might need dose adjustment for levothyroxine as she was tachy trop normalized propranolol for now trend lft diet cardiac dvt ppx lovenox full code Plan discussed with: Patient My Orders Orders - SILVINO RUBIN MD Procedure Category Date Status Time Communication Order ORDERS 01/30/25 Transmitted 15:41 Furosemide Injection PHA 01/31/25 In Process (Lasix Injection) 10:00 Basic Metabolic Panel LAB 01/31/25 Verified 04:00 Complete Blood Count LAB 01/31/25 Verified 04:00 Magnesium LAB 01/31/25 Verified 04:00 Phosphorus LAB 01/31/25 Verified 04:00 Hydrochlorothiazide PHA 01/30/25 Verified Tablet (Hydrochlorot 17:30 Hydrochlorothiazide PHA 01/31/25 Verified Tablet (Hydrochlorot 10:00 Date of Service: Jan 30, 2025 Billing Provider: SILVINO RUBIN MD Common Visit Codes: [id number] INP/OBS CARE(HIGH) SILVINO RUBIN MD Jan 30, 2025 17:26
--- NOTE | 2025-01-30 18:03 | DVHSR ---
APPROVED REPORT EXAM: Two-dimensional and M-mode echocardiogram with Doppler and color Doppler. Blood Pressure: 124/60 mmHg INDICATION EF RISK FACTORS Height: 5'3", Weight: 117 DIMENSIONS LVDd4.4 (3.8-5.7cm)LA (2D)3.5 (1.9-4.0cm)Aortic Root3.0 (2.0-3.7cm) LVDs2.9 (2.5-4.0cm)LA (MM) (1.9-4.0cm)Aortic Cusp Exc1.7 (1.5-2.0cm) EF (%) 60.0 (55-70%)Rt. Atrium3.4 (1.9-4.0cm)Asc. Aorta cm IVSd0.9 (0.7-1.1cm)RV (D)3.5 (1.8-2.4cm) PWd0.8 (0.7-1.1cm) Mitral Valve MitralMitral Stenosis E wave0.97m/sMV Mean GR.mmHg A wave1.00m/sMV Peak GR.mmHg E/A ratio1.02D MVAcm2 DECEL [id number] 1/2 Timems Aortic Valve Aortic ValveAortic Stenosis V11.20m/Iris Mean GR.5mmHg V21.52m/Iris Peak GR.9mmHg LVOT Diameter1.7 (1.8-2.4cm)Doppler AVA1.79cm2 Pulmonic Valve V20.91m/s Tricuspid Valve TR Velocity3.06m/s [id number] Other Information Technically limited study due to body habitus. Conclusion lvef 65% mild lvh normal rv function but moderately enlarged no severe valve abnormalities noted left atrium enlarged
[2025-01-30] MEDS: ACETAMINOPHEN 325 MG TAB PO PRN (18:11)
[2025-01-30] MEDS: hydroCHLOROthiazide 25 MG TAB PO ONE (18:12)
[2025-01-31 01:00] VITALS: BP 113/60; PULSE 75; RESP 16; TEMP 98.4; O2SAT 97
[2025-01-31 05:00] VITALS: BP 109/58; PULSE 79; RESP 16; TEMP 98; O2SAT 99
[2025-01-31 05:49] LABS: Sodium 144 mmol/L (136-145)
[2025-01-31 05:50] LABS: Anion Gap 10 (5-15); Calcium 9.4 mg/dL (8.7-10.4); Carbon Dioxide 25 mmol/L (20-31)
[2025-01-31 05:55] LABS: Glucose 93 mg/dL (74-106)
[2025-01-31 05:56] LABS: Magnesium 2.2 mg/dL (1.6-2.6)
[2025-01-31 05:57] LABS: Chloride 109 mmol/L (98-107); Potassium 4.9 mmol/L (3.5-5.1)
[2025-01-31 06:31] LABS: BUN/Creatinine Ratio 19.1 (10.0-20.0)
[2025-01-31 06:34] LABS: Blood Urea Nitrogen 13 mg/dL (9-23)
[2025-01-31 09:00] VITALS: BP 114/63; PULSE 72; RESP 16; TEMP 97.9; O2SAT 94
[2025-01-31 09:09] LABS: Hematocrit 43.1 % (36.0-46.0); Hemoglobin 14.4 g/dL (12.2-16.2); Mean Corpuscular Hemoglobin 29.5 pg (28.0-32.0); Mean Corpuscular Volume 88.6 fL (80.0-100.0); Nucleated Red Blood Cells % 0.0 %
[2025-01-31] MEDS: ENOXAPARIN SOD 40 MG/0.4 ML SYRINGE SC SCH (10:00)
[2025-01-31] MEDS ORDERED: FUROSEMIDE 20 MG/2 ML VIAL IV SCH (10:00)
[2025-01-31] MEDS: hydroCHLOROthiazide 25 MG TAB PO SCH (10:08)
[2025-01-31] MEDS ORDERED: PROP1TAB53 PO (11:54)
[2025-01-31] MEDS ORDERED: HYDR25TA5 PO (11:54)
--- NOTE | 2025-01-31 11:56 | DVHDS2 ---
Discharge Summary Date of Admission Jan 29, 2025 at 20:12 Date of Discharge: Jan 31, 2025 Labs/Diagnostic Data: Laboratory Results Test 01/31/25 08:44 01/31/25 05:19 01/29/25 20:44 01/29/25 15:53 White Blood Count 8.1 10^3/uL (4.4-10.8) Red Blood Count 4.87 10^6/uL (4.0-5.20) Hemoglobin 14.4 g/dL (12.2-16.2) Hematocrit 43.1 % (36.0-46.0) Mean Corpuscular Volume 88.6 fL (80.0-100.0) Mean Corpuscular Hemoglobin 29.5 pg (28.0-32.0) Mean Corpuscular Hemoglobin Concent 33.3 g/dL (32.0-36.0) Red Cell Distribution Width 13.6 % (11.8-14.3) Platelet Count 178 10^3/uL (140-450) Mean Platelet Volume 9.6 fL (6.9-10.8) Neutrophils (%) (Auto) 58.6 % (37.0-80.0) Lymphocytes (%) (Auto) 19.5 % (10.0-50.0) Monocytes (%) (Auto) 15.4 % (0.0-12.0) Eosinophils (%) (Auto) 5.8 % (0.0-7.0) Basophils (%) (Auto) 0.7 % (0.0-2.0) Neutrophils # (Auto) 4.7 10 ^3/uL (1.6-8.6) Lymphocytes # (Auto) 1.6 10 ^3/uL (0.4-5.4) Monocytes # (Auto) 1.2 10 ^3/uL (0-1.3) Eosinophils # (Auto) 0.5 10 ^3/uL (0-0.8) Basophils # (Auto) 0.1 10 ^3/uL (0-0.2) Nucleated Red Blood Cells 0.0 % Sodium Level 144 mmol/L (136-145) Potassium Level 4.9 mmol/L (3.5-5.1) Chloride Level 109 mmol/L (98-107) Carbon Dioxide Level 25 mmol/L (20-31) Anion Gap 10 (5-15) Blood Urea Nitrogen 13 mg/dL (9-23) Creatinine 0.68 mg/dL (0.550-1.02) Glomerular Filtration Rate Calc 92 mL/min (>90) BUN/Creatinine Ratio 19.1 (10.0-20.0) Serum Glucose 93 mg/dL (74-106) Calcium Level 9.4 mg/dL (8.7-10.4) Phosphorus Level 3.7 mg/dL (2.4-5.1) Magnesium Level 2.2 mg/dL (1.6-2.6) Troponin I High Sensitivity 31 ng/L (</=34) Urine Color Yellow (Yellow) Urine Clarity Turbid (Clear) Urine pH 5.5 (5.0-9.0) Urine Specific [place] 1.019 (1.001-1.035) Urine Protein 1+ (Negative) Urine Ketones Negative (Negative) Urine Blood Negative /uL (Negative) Urine Nitrite Negative (Negative) Urine Bilirubin Negative (Negative) Urine Urobilinogen Normal mg/dL (Negative) Urine Leukocyte Esterase Trace /uL (Negative) Urine RBC 3 /hpf (0 - 4) Urine Microscopic WBC 6 /HPF (0-5) Urine Squamous Epithelial Cells Few /hpf (<5) Urine Calcium Oxalate Crystals Mod (None Seen) Urine Bacteria None seen /hpf (None Seen) Urine Hyaline Casts Few /lpf (0 - 2) Urine Mucus Few (None Seen) Urine Glucose Normal mg/dL (Normal) Test 01/29/25 13:17 D-Dimer, Quantitative 1.26 mg/L FEU (0.0-0.49) Total Bilirubin 2.4 mg/dL (0.2-1.0) Aspartate Amino Transferase (AST) 72 U/L (13-40) Alanine Aminotransferase (ALT) 96 U/L (7-40) Alkaline Phosphatase 84 U/L (46-116) B-Type Natriuretic Peptide 51.26 pg/mL (0-100) Total Protein 7.0 g/dL (5.7-8.2) Albumin 4.4 g/dL (3.2-4.8) Thyroid Stimulating Hormone (TSH) 0.02 uIU/mL (0.55-4.78) Other Laboratory Tests 01/31/25 08:44 01/31/25 05:19 Final Diagnosis/Problems List LE edema venous insufficiency Discharge Disposition: Home Discharge Instruct/Medications Diet: Consistent carbohydrate, Cardiac 2g Na,low cholest Activity: See Comment Activity comment: leg elevation Follow Up/Referral: dc clinic dr jimenez 02/09 Medications: hctz Scheduled Amlodipine Besylate (Amlodipine Besylate), 1 TAB PO DAILY Cephalexin (Keflex), 500 MG PO QID, (Reported) Cephalexin Monohydrate (Cephalexin), 1 CAP PO TID Docusate Sodium (Colace), 1 CAP PO BID Hctz (Hydrochlorothiazide), 12.5 MG PO DAILY Levothyroxine Sodium (Levothyroxine Sodium), 0.05 MCG PO DAILY, (Reported) Levothyroxine Sodium (Synthroid Tablet), 1 TAB PO DAILY Levothyroxine Sodium (Synthroid Tablet), 1.5 TAB PO DAILY Propranolol HCl (Propranolol Hydrochloride), 20 MG PO TID Propranolol Hcl (Inderal La), 20 MG PO TID, (Reported) Miscellaneous Medications Clotrimazole (Topical) (Clotrimazole Antifungal), 1 % EX, (Reported) Hydrocodone-Acetaminophen (Hydrocodone/Acetaminophen), 1 TAB PO, (Reported) Discharge Statement: "Patient was advised to return to the ER or call 911 if any headaches, dizziness, shortness of breath, chest pain, abdominal pain, bleeding, fevers, or worsening of medical condition. Patient was counseled about treatment plan, medications, possible side effects, patientverbalized understanding. All questions were answered to the best of my ability. This discharge took greater then 30 minutes in planning, reviewing documentation, counseling the patient, and discussing with other team members." ASSESSMENT ASSESSMENT Assessment LE edema venous insufficiency Date of Service: Jan 31, 2025 Billing Provider: SILVINO RUBIN MD Common Visit Codes: [id number] DISCH DAY >30min SILVINO RUBIN MD Jan 31, 2025 11:56
[2025-02-01 23:06] LABS: Free Thyroxine Index >13.2 (1.2-4.9)
== END 2025-01-31 15:24 | disposition left against medical advice (07) | DRG 282 ==
LOC: ER 12:42 → OVERFLOW 19:59 → EAST 01-30 16:39
PROVIDERS: ADMIT Student in an Organized Health Care Education/Training Program; ATTEND Student in an Organized Health Care Education/Training Program
DX: I87.2 Venous insufficiency (chronic) (peripheral) (principal); I21.A1 Myocardial infarction type 2; E05.80 Other thyrotoxicosis without thyrotoxic crisis or storm; I10 Essential (primary) hypertension; E80.6 Other disorders of bilirubin metabolism; I34.1 Nonrheumatic mitral (valve) prolapse; I36.1 Nonrheumatic tricuspid (valve) insufficiency; Z53.29 Procedure and treatment not carried out because of patient's decision for other reasons; R74.01 Elevation of levels of liver transaminase levels; Z90.710 Acquired absence of both cervix and uterus; Z90.49 Acquired absence of other specified parts of digestive tract; Z98.51 Tubal ligation status; Z88.1 Allergy status to other antibiotic agents; Z88.0 Allergy status to penicillin; Z88.8 Allergy status to other drugs, medicaments and biological substances; Z87.440 Personal history of urinary (tract) infections
CPT/HCPCS: 36415; 71046; 71275; 80048; 80053; 81001; 83735; 83880; 84100; 84443; 84484; 85025; 85379; 93005; 93306; 93970; G0378

== ENCOUNTER 2025-01-31 19:59 | Emergency (ER) | payer MEDICARE, OTHER, MEDICAID ==
[~2025-01-31] VITALS: Ht 160 cm; Wt 54.5 kg
[~2025-01-31 19:59] MED LIST changes: +HYDR25TA5 PO; +PROP1TAB53 PO
[2025-01-31 20:21] VITALS: BP 130/65; PULSE 85; RESP 16; TEMP 98.2; O2SAT 98
--- NOTE | 2025-01-31 23:16 | ED.PDOC ---
Musculoskeletal HPI Comments 74 year old female presents to the ED via EMS with a chief complaint of RT foot pain onset today. Per EMS, patient was discharged home from [facility] today around noon, walked home. Per EMS, patient lives alone in an apartment, patient's boyfriend lives in same apartment complex, stated to EMS patient has dementia. Patient is a poor historian, does not recall being hospitalized, states she is experiencing RT foot pain. Discharge diagnosis was LE edema venous insufficiency. PMHx anemia, anxiety, asthma, COPD, thyroid. Denies fall, injury, trauma, nausea, vomiting, diarrhea, chest pain, dizziness, shortness of breath. No other symptoms or modifying factors present at this time. Chief Complaint: Lower Extremity Time Seen by MD: 23:05 Primary Care Provider: none Reviewed Notes: Medications, Allergies Allergies: Coded Allergies: Erythromycin (Verified Allergy, Unknown, 12/13/14) Gentamicin (Verified Adverse Reaction, Severe, 08/01/13) Penicillins (Verified Adverse Reaction, Severe, 08/01/13) Streptomycin (Verified Adverse Reaction, Severe, 08/01/13) Home Meds Active Scripts Propranolol HCl (Propranolol Hydrochloride) 20 Mg Tab, 20 MG PO TID for 30 Days, #90 TAB Prov:SILVINO RUBIN MD 01/31/25 Hctz (Hydrochlorothiazide) 25 Mg Tab, 12.5 MG PO DAILY for 30 Days, #15 TAB Prov:SILVINO RUBIN MD 01/31/25 Levothyroxine Sodium (SYNTHROID TABLET) 100 Mcg Tb, 1.5 TAB PO DAILY, #90 TAB 5 Refills Prov:CARISSA BARRON MD 12/26/24 Reported Medications Hydrocodone-Acetaminophen (Hydrocodone/Acetaminophen) 1 Tab Tab, 1 TAB PO, TAB 08/02/13 Propranolol Hcl (Inderal La) 60 Mg Cap, 20 MG PO TID, CAP 08/02/13 Discontinued Reported Medications Clotrimazole (Topical) (CLOTRIMAZOLE ANTIFUNGAL) 1 %/F Cre, 1 % EX, CRE 08/02/13 Cephalexin (Keflex) 500 Mg Cap, 500 MG PO QID, CAP 08/02/13 Levothyroxine Sodium (Levothyroxine Sodium) 25 Mcg Tab, 0.05 MCG PO DAILY, TAB 08/02/13 Discontinued Scripts Amlodipine Besylate (Amlodipine Besylate) 10 Mg Tab, 1 TAB PO DAILY, #30 TAB 5 Refills Prov:CARISSA BARRON MD 12/26/24 Docusate Sodium (Colace) 100 Mg Cap, 1 CAP PO BID, #30 CAP Prov:FERN MCCRARY 11/25/24 Cephalexin Monohydrate (Cephalexin) 500 Mg Cap, 1 CAP PO TID, #21 CAP Prov:FERN MCCRARY 11/25/24 Levothyroxine Sodium (SYNTHROID TABLET) 50 Mcg Tb, 1 TAB PO DAILY, #30 TAB Prov:FERN MCCRARY 11/05/22 Information Source: Patient, Emergency Med Personnel Mode of Arrival: EMS Location: Right Extremity Location: Foot Timing: Hours Prehospital treatment: None Severity: Moderate Able to Move Extremity: Yes Bear Weight: Fully Pain: Moderate Mechanism: Spontaneous Onset of Symptoms: Spontaneous DVT Risk Factors: NONE Last Tetanus: UTD Associated signs and symptoms: Foot pain Vital Signs Vital Signs Date Time Temp Pulse Resp B/P (MAP) Pulse Ox O2 Delivery O2 Flow Rate FiO2 01/31/25 20:21 98.2 85 16 130/65 98 98.2 Physical Exam PHYSICAL EXAM: General: Awake, alert and oriented. No acute distress. Skin: Skin in warm, dry and intact without rashes or lesions. HEENT: The head is normocephalic and atraumatic. Conjunctivae are clear without exudates or hemorrhage. Sclera is non-icteric. Neck: Normal range of motion. No JVD. Cardiac: Regular rate Respiratory: No signs of respiratory distress. No Stridor. Extremities: Mild nonpitting bilateral pedal edema Neurological: The patient is awake, alert and oriented to person only. Speech is clear. There is no facial asymmetry. Psychiatric: Appropriate mood and affect. Good judgement and insight. 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 Was a procedure done?: No Differential Diagnosis EXT Differential Diagnosis: Other Other Differential Diagnosis Dementia, chronic foot pain, other X-Ray, Labs, Meds, VS Vital Signs Date Time Temp Pulse Resp B/P (MAP) Pulse Ox O2 Delivery O2 Flow Rate FiO2 01/31/25 20:21 98.2 85 16 130/65 98 98.2 Time of 1ST Reevaluation: 23:35 Reevaluation 1ST: Unchanged Patient Education/Counseling: Diagnosis, Treatment, Need For Follow Up Family Education/Counseling: No Family Present Departure 1 Departure Time of Disposition: 06:00 Impression: Primary Impression: Memory loss Additional Impression: Unable to care for self Disposition: 30 STILL A PATIENT Condition: Stable Comments 74-year-old female who presented to the emergency department with bilateral foot pain. Patient had no recollection of recent admission for similar symptoms. Discussed with the patient's "boyfriend" who also reports patient has severe mem ory issues. Patient is currently living alone, does not have PCP, does not appear to have support for routine health care. Patient is held in the ED for social work consult in the morning. Signed out to Dr. Rosado @ 0600 Critical Care Note Critical Care Time?: No Stability Stability form required: No Heart Score Heart Score: Heart Score Response (Comments) Value History N/A 0 EKG N/A 0 Age N/A 0 Risk Factors N/A 0 Troponin N/A 0 Total 0 I personally scribed for EILEEN VINCENT MD ([email or web address]) on 01/31/25 at 23:16. Electronically submitted by Heather Morrell ([email or web address]). EILEEN VINCENT MD Jan 31, 2025 23:16
[2025-02-01] MEDS: ACETAMINOPHEN 325 MG TAB PO ONE (03:15)
== END 2025-02-01 09:12 | disposition left against medical advice (07) ==
LOC: EDBD 19:59 → ER 19:59
DX: R41.3 Other amnesia (principal); M79.671 Pain in right foot; J44.9 Chronic obstructive pulmonary disease, unspecified; F03.90 Unspecified dementia, unspecified severity, without behavioral disturbance, psychotic disturbance, mood disturbance, and anxiety; I10 Essential (primary) hypertension; Z88.0 Allergy status to penicillin; Z88.1 Allergy status to other antibiotic agents; Z90.49 Acquired absence of other specified parts of digestive tract; Z90.710 Acquired absence of both cervix and uterus; Z98.890 Other specified postprocedural states

== ENCOUNTER 2025-02-15 16:12 | Inpatient (IN) | payer MEDICARE, OTHER, MEDICAID ==
[~2025-02-15] VITALS: Ht 160 cm; Wt 50.1 kg
[~2025-02-15 16:12] MED LIST changes: -AMLO1TAB23 PO; -CEPH-37 PO; -CEPH500C PO; -DOCU-94 PO; -LEVO-848 PO; -LEVO25TA6 PO; -[UNRECOGNIZED DRUG - CODE] EX
--- NOTE | 2025-02-15 17:45 | DVH ---
CHEST RADIOGRAPH Indication: Cough Technique: Single frontal view of the chest was obtained Comparison: XY CHEST XRAY 1 VIEW on DOS: 12/22/24, XY CHEST PORTABLE on DOS: 08/08/22 FINDINGS: Lines and Tubes: None Lungs: No focal consolidation. Pleura: No effusion. No pneumothorax. Cardiomediastinal contours: Unremarkable Bones: No acute osseous abnormality. IMPRESSION: 1. No acute cardiopulmonary disease. 2. No significant change from 01/29 2025
--- NOTE | 2025-02-15 17:55 | ED.PDOC ---
History of Present Illness HPI Comments Ms. Nicolas is a 74 year old female with PMHx of hypothyroidism with possible iatrogenic hyperthyroidism s/p radioactive ablation, hyperthyroidism, vascular insufficiency, and dementia, who presents today with complaint of confusion. The patient is a poor historian, history was mainly taken from her boyfriend, Tang heck. Per her boyfriend, the patient has become increasingly more confused and forgetful, she is unable to take care of herself and he is unable to take care of her. She refers fatigue, difficulty swallowing, and has right foot pain, for which she was recently admitted at this institution diagnosed with chronic venous insufficiency. On initial evaluation, the patient is AOx2, afebrile, with stable vitals. Chief Complaint: Confusion Time Seen by MD: 17:40 Primary Care Provider: none Reviewed Notes: Nurses Notes, Medications Allergies: Coded Allergies: Erythromycin (Verified Allergy, Unknown, 12/13/14) Gentamicin (Verified Adverse Reaction, Severe, 08/01/13) Penicillins (Verified Adverse Reaction, Severe, 08/01/13) Streptomycin (Verified Adverse Reaction, Severe, 08/01/13) Home Meds Active Scripts Propranolol HCl (Propranolol Hydrochloride) 20 Mg Tab, 20 MG PO TID for 30 Days, #90 TAB Prov:SILVINO RUBIN MD 01/31/25 Hctz (Hydrochlorothiazide) 25 Mg Tab, 12.5 MG PO DAILY for 30 Days, #15 TAB Prov:SILVINO RUBIN MD 01/31/25 Levothyroxine Sodium (SYNTHROID TABLET) 100 Mcg Tb, 1.5 TAB PO DAILY, #90 TAB 5 Refills Prov:CARISSA BARRON MD 12/26/24 Reported Medications Hydrocodone-Acetaminophen (Hydrocodone/Acetaminophen) 1 Tab Tab, 1 TAB PO, TAB 08/02/13 Propranolol Hcl (Inderal La) 60 Mg Cap, 20 MG PO TID, CAP 08/02/13 Information Source: Patient, Significant Other, H Medical Record Mode of Arrival: Ambulatory Severity: Mild Timing: Weeks Duration: Since onset Past Medical History PAST MEDICAL HISTORY: Dementia, HTN, Thyroid, UTI'S Surgical History: BTL, Cholecystectomy, Hernia Repair, Hysterectomy BOOK TRIMMER History: Denies all BOOK TRIMMER Hx, No Pertinent BOOK TRIMMER History Family History Family History: Reviewed,noncontributory to illness Social History Smoker: Non-Smoker, Quit Greater Than 1 Year Alcohol: Denies ETOH Use Drugs: Denies Drug Use Lives In: Home Constitutional: reports: fatigue Gastrointestinal: reports: difficulty swallowing Musculoskeletal: reports: others (Right foot pain ) Unable to Obtain due to: Other (Patient states she is unsure of other symptoms due to dementia ) Physical Exam General Appearance: Normal HEENT: Normal ENT Inspection, PERRL/EOMI, Pharynx Normal Neck: Full Range of Motion, Non-Tender, Thyromegaly Respiratory: Chest Non-Tender, Lungs Clear, No Accessory Muscle Use, No Respiratory Distress, Normal Breath Sounds Cardiovascular: No Edema, No Murmur, Normal Peripheral Pulses, Regular Rate/Rhythm Breast Exam: Deferred Gastrointestinal: Non Tender, Normal Bowel Sounds, Soft Genitalia: Deferred Pelvic: Deferred Rectal: Deferred Extremities: Other (Bilateral foot edema with pain on palpation) Neurologic: Normal Affect, Normal Mood, Other (AOx2, with decreased memory ) Cerebellar Function: Unable to Test Reflexes: NOT DONE Skin: Other (Changes in pigmentation noted along right shoulder and pectoral region ) Peripheral Pulses: 3+ dorsalis pedis (R), 3+ dorsalis pedis (L) Lymphatic: Other (No cervical adenopathy ) Was a procedure done? Was a procedure done?: No Differential Dx Considerations may include: Influenza, COVID, Pneumonia, Bronchitis, Pneumonitis,cystitis, pyelonephritis, nephrolithiasis, acute metabolic encephalopathy, dementia, failure to thrive X-Ray, Labs, Meds, VS Vital Signs Date Time Temp Pulse Resp B/P (MAP) Pulse Ox O2 Delivery O2 Flow Rate FiO2 02/15/25 16:16 98.9 92 14 133/74 100 98.9 Lab Test 02/15/25 17:35 Range/Units White Blood Count 7.3 4.4-10.8 10^3/uL Red Blood Count 5.08 4.0-5.20 10^6/uL Hemoglobin 15.1 12.2-16.2 g/dL Hematocrit 44.7 36.0-46.0 % Mean Corpuscular Volume 88.0 80.0-100.0 fL Mean Corpuscular Hemoglobin 29.7 28.0-32.0 pg Mean Corpuscular Hemoglobin Concent 33.7 32.0-36.0 g/dL Red Cell Distribution Width 13.2 11.8-14.3 % Platelet Count 174 140-450 10^3/uL Mean Platelet Volume 9.7 6.9-10.8 fL Neutrophils (%) (Auto) 56.6 37.0-80.0 % Lymphocytes (%) (Auto) 28.4 10.0-50.0 % Monocytes (%) (Auto) 10.1 0.0-12.0 % Eosinophils (%) (Auto) 4.0 0.0-7.0 % Basophils (%) (Auto) 0.9 0.0-2.0 % Neutrophils # (Auto) 4.1 1.6-8.6 10 ^3/uL Lymphocytes # (Auto) 2.1 0.4-5.4 10 ^3/uL Monocytes # (Auto) 0.7 0-1.3 10 ^3/uL Eosinophils # (Auto) 0.3 0-0.8 10 ^3/uL Basophils # (Auto) 0.1 0-0.2 10 ^3/uL Nucleated Red Blood Cells 0.1 % Sodium Level 145 136-145 mmol/L Potassium Level 4.6 3.5-5.1 mmol/L Chloride Level 108 H 98-107 mmol/L Carbon Dioxide Level 30 20-31 mmol/L Anion Gap 7 5-15 Blood Urea Nitrogen < 5 L 9-23 mg/dL Creatinine 0.66 0.550-1.02 mg/dL Glomerular Filtration Rate Calc 93 >90 mL/min BUN/Creatinine Ratio 7.6 L 10.0-20.0 Serum Glucose 85 74-106 mg/dL Calcium Level 9.6 8.7-10.4 mg/dL Time of 1ST Reevaluation: 16:26 Reevaluation 1ST: Unchanged Patient Education/Counseling: Diagnosis, Treatment Family Education/Counseling: Diagnosis, Treatment Comments The patient presented today due increased confusion and forgetfulness, per her boyfriend, she recently lost her home, is unable to take care of herself, and he is unable to take care of her On initial eval, the patient is afebrile, with stable vitals, AOx2, without overt signs of distress CBC and BMP are within normal range, UA is pending Chest xray shows no cardiopulmonary disease social worker health services consult has been placed The patient will be admitted for further work up and monitoring SEPSIS Sepsis Screen Date sepsis recognized/suspect: Feb 15, 2025 Time Sepsis recognized/suspect: 1616 Recent Procedure: No On Antibiotic Therapy: No Respiratory Rate >20: No Heart Rate >90: No Temp<36 C (96.8 F) or >38.3 C: No SBP <90 or MAP <65 mmHG: No New Acute Mental Status Change: No Is the patient on CPAP, BIPAP,: No Physician Orders Urinalysis (02/15/25 17:20) Chest Xray 1 View (02/15/25 17:20) * Drying Machine Operator Package Yarns Consult (02/15/25 ) Vital Signs Date Time Temp Pulse Resp B/P (MAP) Pulse Ox O2 Delivery O2 Flow Rate FiO2 02/15/25 16:16 98.9 92 14 133/74 100 98.9 Laboratory Tests Test 02/15/25 17:35 White Blood Count 7.3 10^3/uL (4.4-10.8) Departure 1 Departure Time of Disposition: 18:43 Impression: Primary Impression: Confusion Additional Impression: Failure to thrive Disposition: 30 STILL A PATIENT Admit to: Med Surg Condition: Stable Critical Care Note Critical Care Time?: No Stability Stability form required: TYRA Shrestha RESIDENT Feb 15, 2025 17:55
[2025-02-15 18:03] LABS: Hematocrit 44.7 % (36.0-46.0); Hemoglobin 15.1 g/dL (12.2-16.2); Mean Corpuscular Hemoglobin 29.7 pg (28.0-32.0); Mean Corpuscular Volume 88.0 fL (80.0-100.0); Nucleated Red Blood Cells % 0.1 %; Potassium 4.6 mmol/L (3.5-5.1)
[2025-02-15 18:04] LABS: Anion Gap 7 (5-15); Calcium 9.6 mg/dL (8.7-10.4); Carbon Dioxide 30 mmol/L (20-31)
[2025-02-15 18:09] LABS: Glucose 85 mg/dL (74-106)
[2025-02-15 18:20] LABS: BUN/Creatinine Ratio 7.6 (10.0-20.0); Blood Urea Nitrogen < 5 mg/dL (9-23); Chloride 108 mmol/L (98-107); Sodium 145 mmol/L (136-145)
[2025-02-15] MEDS ORDERED: ONDANSETRON HCL 4 MG/2 ML VIAL IV PRN (19:45)
--- NOTE | 2025-02-15 19:51 | DVHHP2 ---
History of Present Illness Reason for Visit: Generalized weakness History of Present Illness 74-year-old female presents for evaluation of generalized weakness. Patient is accompanied by her boyfriend who states patient is becoming progressively more forgetful and confused. She does have a history of dementia. He states being unable to take care of himself or the patient. Patient is requesting placement at a facility for the patient. Past Medical History Dementia, thyroid, hypertension Past Surgical History Cholecystectomy, hernia repair, hysterectomy, BTL Family History Noncontributory Smoke: No ALCOHOL: none Drugs: None Review of Systems Review of Systems Review of systems are currently negative otherwise addressed in HPI. Allergies: Coded Allergies: Erythromycin (Verified Allergy, Unknown, 12/13/14) Gentamicin (Verified Adverse Reaction, Severe, 08/01/13) Penicillins (Verified Adverse Reaction, Severe, 08/01/13) Streptomycin (Verified Adverse Reaction, Severe, 08/01/13) Exam Vital Signs Vital Signs Date Time Temp Pulse Resp B/P (MAP) Pulse Ox O2 Delivery O2 Flow Rate FiO2 02/15/25 16:16 98.9 92 14 133/74 100 98.9 Exam Gen: 74-year-old female in mild distress. Skin: Warm, dry, normal color and texture, no rash. HEENT: Normocephalic atraumatic, mucous membranes moist and pink. Neck: Cervical and supraclavicular nodes normal without enlargement, trachea is midline, thyroid gland is normal without masses. Pulmonary: Clear to auscultation and percussion bilaterally. Cardiac: Regular rate and rhythm. No murmur Abdomen: Soft, nontender, nondistended, bowel sounds present all 4 quadrants, no guarding, no rigidity, no organomegaly. Extremities: No cyanosis, clubbing, no edema Neuro: Cranial nerves II through XII grossly intact, normal affect and speech, no focal motor deficits. Labs/Xrays ORDERING PHYSICIAN: TYRA LIANG RESIDENT PROCEDURE(s): CXR1 - CHEST XRAY 1 VIEW REASON: Cough ORDER NUMBER(s): [id number], ACCESSION NUMBER(s): [id number] CHEST RADIOGRAPH Indication: Cough Technique: Single frontal view of the chest was obtained Comparison: XY CHEST XRAY 1 VIEW on DOS: 12/22/24, XY CHEST PORTABLE on DOS: 08/08/22 FINDINGS: Lines and Tubes: None Lungs: No focal consolidation. Pleura: No effusion. No pneumothorax. Cardiomediastinal contours: Unremarkable Bones: No acute osseous abnormality. IMPRESSION: 1. No acute cardiopulmonary disease. 2. No significant change from 01/29 2025 Labs Test 02/15/25 17:35 Range/Units White Blood Count 7.3 4.4-10.8 10^3/uL Red Blood Count 5.08 4.0-5.20 10^6/uL Hemoglobin 15.1 12.2-16.2 g/dL Hematocrit 44.7 36.0-46.0 % Mean Corpuscular Volume 88.0 80.0-100.0 fL Mean Corpuscular Hemoglobin 29.7 28.0-32.0 pg Mean Corpuscular Hemoglobin Concent 33.7 32.0-36.0 g/dL Red Cell Distribution Width 13.2 11.8-14.3 % Platelet Count 174 140-450 10^3/uL Mean Platelet Volume 9.7 6.9-10.8 fL Neutrophils (%) (Auto) 56.6 37.0-80.0 % Lymphocytes (%) (Auto) 28.4 10.0-50.0 % Monocytes (%) (Auto) 10.1 0.0-12.0 % Eosinophils (%) (Auto) 4.0 0.0-7.0 % Basophils (%) (Auto) 0.9 0.0-2.0 % Neutrophils # (Auto) 4.1 1.6-8.6 10 ^3/uL Lymphocytes # (Auto) 2.1 0.4-5.4 10 ^3/uL Monocytes # (Auto) 0.7 0-1.3 10 ^3/uL Eosinophils # (Auto) 0.3 0-0.8 10 ^3/uL Basophils # (Auto) 0.1 0-0.2 10 ^3/uL Nucleated Red Blood Cells 0.1 % Sodium Level 145 136-145 mmol/L Potassium Level 4.6 3.5-5.1 mmol/L Chloride Level 108 H 98-107 mmol/L Carbon Dioxide Level 30 20-31 mmol/L Anion Gap 7 5-15 Blood Urea Nitrogen < 5 L 9-23 mg/dL Creatinine 0.66 0.550-1.02 mg/dL Glomerular Filtration Rate Calc 93 >90 mL/min BUN/Creatinine Ratio 7.6 L 10.0-20.0 Serum Glucose 85 74-106 mg/dL Calcium Level 9.6 8.7-10.4 mg/dL SEPSIS Sepsis Screen Date sepsis recognized/suspect: Feb 15, 2025 Time Sepsis recognized/suspect: 1616 Recent Procedure: No On Antibiotic Therapy: No Respiratory Rate >20: No Heart Rate >90: No Temp<36 C (96.8 F) or >38.3 C: No SBP <90 or MAP <65 mmHG: No New Acute Mental Status Change: No Is the patient on CPAP, BIPAP,: No Physician Orders Urinalysis (02/15/25 17:20) Chest Xray 1 View (02/15/25 17:20) * Electrical Panel Builder Consult (02/15/25 ) Vital Signs Date Time Temp Pulse Resp B/P (MAP) Pulse Ox O2 Delivery O2 Flow Rate FiO2 02/15/25 16:16 98.9 92 14 133/74 100 98.9 Laboratory Tests Test 02/15/25 17:35 White Blood Count 7.3 10^3/uL (4.4-10.8) Assessment/Plan Assessment/Plan Assessment Failure to thrive Dementia Hypertension Plan Admit the patient to [facility] to the hospitalist Social service consult for placement Resume home medications Continue treatment per orders Plan discussed with: Patient Date of Service: Feb 15, 2025 Billing Provider: ANGLE WATTS Common Visit Codes: [id number] INP/OBS CARE (MOD) ANGLE WATTS Feb 15, 2025 19:51
[2025-02-15 21:45] VITALS: BP 126/69; PULSE 87; RESP 16; TEMP 97.7; O2SAT 96
[2025-02-15 22:28] VITALS: BP 122/75; PULSE 82; PULSE 87; RESP 16; TEMP 97.8; O2SAT 96; O2SAT 98
[2025-02-15] MEDS: GABAPENTIN 100 MG CAP PO SCH (23:21)
[2025-02-15] MEDS: PROPRANOLOL HCL 20 MG TAB PO SCH (23:22)
[2025-02-16] VITALS (8 sets, daily range): BP systolic 109–132; BP diastolic 57–74; PULSE 63–76; RESP 16–74; TEMP 97.5–98.5; O2SAT 95–100
[2025-02-16] MEDS: LEVOTHYROXINE SODIUM 50 MCG TAB PO SCH (05:20)
[2025-02-17] VITALS (8 sets, daily range): BP systolic 93–120; BP diastolic 55–75; PULSE 57–71; RESP 16–20; TEMP 97.2–98.4; O2SAT 92–100
[2025-02-17] MEDS: ACETAMINOPHEN 325 MG TAB PO PRN (09:50)
--- NOTE | 2025-02-17 17:13 | DVHPN2 ---
Subjective I am assuming the care of this patient from today onwards. Patient has stated that she is very forgetful and generalized weak and also bilateral lower extremity pain. Patient also complaining of throat swelling. 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 no motor deficit Medications Current Medications Medications Dose Ordered Sig/Lisa Route Start Time Stop Time Status Last Admin Dose Admin Gabapentin 100 mg BID PO 02/15/25 22:00 02/17/25 09:49 100 MG Levothyroxine Sodium 50 mcg QAM@0600 PO 02/16/25 06:00 02/17/25 05:52 50 MCG Amlodipine Besylate 10 mg DAILY PO 02/16/25 10:00 02/17/25 09:50 10 MG Propranolol HCl 20 mg BID PO 02/15/25 22:00 02/17/25 09:50 20 MG Ondansetron HCl 4 mg Q4HP PRN IV 02/15/25 19:45 Acetaminophen 650 mg Q6HP PRN PO 02/15/25 19:45 02/17/25 09:50 650 MG Laboratory Results Laboratory Tests 02/15/25 17:35 Assessment/Plan Assessment/Plan 74-year-old female who initially came into the hospital with toe swelling bilateral lower extremity deep vein, October weakness and forgetfulness found to have 1. 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 Hypothyroidism 3. Generalized weakness 4. Failure to thrive 5. Hypertension -check TSH free T4 free T3, thyroid ultrasound, Neurology consultation. Plan discussed with: Patient My Orders Orders - RAMÍREZ OCHOA MD Procedure Category Date Status Time Thyroid Stimulating LAB 02/17/25 Logged Hormone 17:08 Free T3 LAB 02/17/25 Logged 17:08 Free T4 (Free LAB 02/17/25 Logged Thyroxine) 17:08 Thyroid US 02/17/25 Logged 17:08 * Neurology Consult CONS 02/17/25 Transmitted 17:09 Date of Service: Feb 17, 2025 Billing Provider: RAMÍREZ OCHOA MD Common Visit Codes: [id number] INP/OBS CARE(HIGH) RAMÍREZ OCHOA MD Feb 17, 2025 17:13
--- NOTE | 2025-02-17 19:14 | DVH ---
ULTRASOUND SOFT TISSUE HEAD AND NECK CLINICAL INDICATION: Thyroid enlargement TECHNIQUE: Multiple real time sonographic images of the thyroid were obtained. COMPARISON: Prior exam dated 12/23/2024 FINDINGS: RIGHT LOBE OF THE THYROID: Measures 3.2 X 0.8 X 0.5 cm. VOLUME OF THE RIGHT LOBE OF THE THYROID IS 0.6 ML PARENCHYMA IS HETEROGENEOUS. THERE ARE NO THYROID NODULES OR CYSTS. LEFT LOBE OF THE THYROID: Measures approximately 3.2 X 0.7 BY 0.7 cm. VOLUME OF THE LEFT LOBE OF THE THYROID IS 0.7 ML. THERE ARE NO NODULES OR CYSTS IN THE LEFT LOBE OF THE THYROID ISTHMUS: Measures 0.2 CM cm. IMPRESSION: 1. Normal Thyroid. 2. NO THYROID NODULES OR CYSTS. 3. Possible lymph nodes in the left lateral neck measuring approximately cm. 4. No significant change from 12/23/2024. [employer] TI-RADS Categories and Recommendations (2017): TR1: 0 points, Benign, No FNA TR2: 2 points, Not suspicious, No FNA TR3: 3 points, Mildly suspicious, FNA if > or = 2.5 cm, Follow if > or = 1.5 cm TR4: 4-6 points, Moderately Suspicious, FNA if > or = 1.5 cm, Follow if > or = 1.0 cm TR5: 7+ points, Highly Suspicious, FNA if > or = 1.0 cm, Follow if > or = 0.5 cm Follow-up ultrasound guidelines: TR5: yearly for 5 years, if no growth or change in TI-RADS level TR4: at 1, 2, 3 and 5 years, if no growth or change in TI-RADS level TR3: at 1, 3 and 5 years, if no growth or change in TI-RADS level If increased but below threshold for FNA, repeat in one year. Source: ACR Thyroid Imaging, Reporting and Data System (TI-RADS): White Paper of the ACR TI-RADS Committee. Marciano et al., J Am Alec Radiol 2017;14:587-595.
--- NOTE | 2025-02-17 23:03 | DVHINCON2 ---
Date of service: Feb 17, [address] Ferraro Reason for Consultation Cognitive decline History of Present Illness Ms. Rosenberg is a 74 years old not sure left-handed female with a history of hypothyroidism, hypertension, polycystic ovarian syndrome, UTI, dementia, she was brought to the [facility] with a chief complaint of confusion. At this time, she is awake, oriented to person, place, she knows year, with good social skills, she tells me she came to the hospital because of thyroid problems When asked, she does confirm a history of progressive short-term memory difficulty since 2023, she claims she has no children, and she lives alone, he shops and takes care of herself She has but had evaluation for her memory difficulty yet CBC, 02/15/2025: Unremarkable BNP, 02/15/2025: Unremarkable TBI/AST/ALT/AP, 01/29/2025: 2.4/72/96/ Vitamin B12, 05/2022: 531 Folic acid, 06/04: 11.2 TSH, 02/18/20 5:0.01 Past Medical History Hypertension, hypothyroidism, polycystic ovarian syndrome UTI, dementia Past Surgical History Tubal ligation, cholecystectomy, hernia repair, hysterectomy Family History: Hypertension G8 FATHER Family History Hypertension, no dementia Social History She has a brief tobacco smoking, but no history of drug or alcohol abuse Allergies: Coded Allergies: Erythromycin (Verified Allergy, Unknown, 12/13/14) Gentamicin (Verified Adverse Reaction, Severe, 08/01/13) Penicillins (Verified Adverse Reaction, Severe, 08/01/13) Streptomycin (Verified Adverse Reaction, Severe, 08/01/13) Home Meds Active Scripts Hctz (Hydrochlorothiazide) 25 Mg Tab, 12.5 MG PO DAILY for 30 Days, #15 TAB Prov:SILVINO RUBIN MD 01/31/25 Levothyroxine Sodium (SYNTHROID TABLET) 100 Mcg Tb, 1.5 TAB PO DAILY, #90 TAB 5 Refills Prov:CARISSA BARRON MD 12/26/24 Reported Medications Hydrocodone-Acetaminophen (Hydrocodone/Acetaminophen) 1 Tab Tab, 1 TAB PO, TAB 08/02/13 Propranolol Hcl (Inderal La) 60 Mg Cap, 20 MG PO TID, CAP 08/02/13 Review of Systems As above, the other systems are negative Vital Signs Vital Signs Date Time Temp Pulse Resp B/P (MAP) Pulse Ox O2 Delivery O2 Flow Rate FiO2 02/17/25 21:09 62 118/66 02/17/25 21:00 97.4 17 97 97.4 02/17/25 20:00 Room Air* 0 21 Physical Exam GENERAL EXAM: General: the patient is well developed and nourished. No acute distress. HEENT: Normocephalic, neck is supple, no carotid bruits. No mass. RESPIRATORY: Normal respiratory effort with symmetrical lung expansion. Lungs clear to auscultation. CARDIOVASCULAR: Regular rate and rhythm with no murmurs. S1, S2. ABDOMEN: Soft, nontender, normal bowel sound NEUROLOGICAL: MENTAL STATUS: Awake and alert. Oriented to person, place, she has been year, socially appropriate SPEECH, LANGUAGE, HIGHER CORTICAL FUNCTION: no aphasia or dysathria. CRANIAL NERVES: #2: Intact visual miller to confrontation. The optic discs were sharp. #3,4,6: Pupils are equal, round and reactive. EOMs full and conjugate. No nystagmus. #5: Facial sensation intact in all three divisions bilaterally. Mandibular strength intact. #7: Facial muscles symmetrical and strength intact. #8: Hearing grossly normal to voice. #9,10: Uvula and soft palate rise in the midline. Swallow and voice are normal. #11: Trapezius and sternomastoid strength intact bilaterally. #12: Tongue midline. No fasciculations or atrophy. SENSATION: Sensation to touch and pinprick is normal. MOTOR: Normal tone in the upper and lower extremity. Normal muscle bulk. No fasciculations. No abnormal movements or posturing. Muscle strength of the major groups in the upper extremities is 5/5. Muscle strength of the major groups in the lower extremities is 5/5. REFLEXES: Deep tendon reflexes normal and symmetrical. No pathological reflexes. CEREBELLAR/COORDINATION: Finger to nose and heel to díaz are normal bilaterally. GAIT/STATION: deferred. Labs/Diagnostic Data Labs Test 02/17/25 18:24 02/15/25 17:35 Range/Units Thyroid Stimulating Hormone (TSH) 0.01 L 0.55-4.78 uIU/mL White Blood Count 7.3 4.4-10.8 10^3/uL Red Blood Count 5.08 4.0-5.20 10^6/uL Hemoglobin 15.1 12.2-16.2 g/dL Hematocrit 44.7 36.0-46.0 % Mean Corpuscular Volume 88.0 80.0-100.0 fL Mean Corpuscular Hemoglobin 29.7 28.0-32.0 pg Mean Corpuscular Hemoglobin Concent 33.7 32.0-36.0 g/dL Red Cell Distribution Width 13.2 11.8-14.3 % Platelet Count 174 140-450 10^3/uL Mean Platelet Volume 9.7 6.9-10.8 fL Neutrophils (%) (Auto) 56.6 37.0-80.0 % Lymphocytes (%) (Auto) 28.4 10.0-50.0 % Monocytes (%) (Auto) 10.1 0.0-12.0 % Eosinophils (%) (Auto) 4.0 0.0-7.0 % Basophils (%) (Auto) 0.9 0.0-2.0 % Neutrophils # (Auto) 4.1 1.6-8.6 10 ^3/uL Lymphocytes # (Auto) 2.1 0.4-5.4 10 ^3/uL Monocytes # (Auto) 0.7 0-1.3 10 ^3/uL Eosinophils # (Auto) 0.3 0-0.8 10 ^3/uL Basophils # (Auto) 0.1 0-0.2 10 ^3/uL Nucleated Red Blood Cells 0.1 % Sodium Level 145 136-145 mmol/L Potassium Level 4.6 3.5-5.1 mmol/L Chloride Level 108 H 98-107 mmol/L Carbon Dioxide Level 30 20-31 mmol/L Anion Gap 7 5-15 Blood Urea Nitrogen < 5 L 9-23 mg/dL Creatinine 0.66 0.550-1.02 mg/dL Glomerular Filtration Rate Calc 93 >90 mL/min BUN/Creatinine Ratio 7.6 L 10.0-20.0 Serum Glucose 85 74-106 mg/dL Calcium Level 9.6 8.7-10.4 mg/dL Assessment Cognitive dysfunction Alzheimer disease MCI Other etiology Confusion, to rule out metabolic encephalopathy Plan/Recommendation Monitoring Supportive treatment Urinalysis Vitamin B12, folic acid, MR brain Up to chair Physical therapy More recommendation per clinical course Prognosis: Poor Time spent: 55 minutes This medical document was created using an electronic medical record system with Dragon computerized dictation system. Although this document has been carefully reviewed, there may still be some phonetic and typographical errors. These areas are purely typographical due to imperfections of the software programs, and do not reflect any compromise in the patient's medical care. Plan discussed with: TED Parham MD Feb 17, 2025 23:03
[2025-02-18] VITALS (7 sets, daily range): BP systolic 99–131; BP diastolic 55–75; PULSE 62–82; RESP 16–20; TEMP 96.9–98.5; O2SAT 97–100
[2025-02-18] MEDS ORDERED: LORazepam 2MG/ML-1ML VIAL IV PRN
[2025-02-18 06:53] LABS: Urine Protein, UAD Negative (Negative)
--- NOTE | 2025-02-18 16:24 | DVH ---
EXAM: MRI BRAIN HEAD WO CONTRAST INDICATION: Dementia TECHNIQUE: Multiplanar, multisequence imaging of the brain without contrast. COMPARISON: CT S.T. NECK on DOS: 01/17/25 FINDINGS: [PARENCHYMA]: No acute infarct or hemorrhage. No mass effect or herniation. No abnormal susceptibility weighted artifact. No significant sequelae of chronic microvascular ischemic change. No definitive pattern of volume loss. [VENTRICLES]: No hydrocephalus. [EXTRA-AXIAL SPACES]: No extra-axial fluid collections. [FLOW VOIDS]: The flow voids are intact. [EXTRA-CRANIAL STRUCTURES]: The bony structures are intact. Visualized portions of the paranasal sinuses and mastoid air cells are essentially clear. IMPRESSION: 1. No MR evidence of an acute intracranial abnormality.
--- NOTE | 2025-02-18 16:30 | DVHPN2 ---
Subjective Patient is currently getting MRI brain. 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 Medications Current Medications Medications Dose Ordered Sig/Lisa Route Start Time Stop Time Status Last Admin Dose Admin Gabapentin 100 mg BID PO 02/15/25 22:00 02/18/25 10:11 100 MG Levothyroxine Sodium 50 mcg QAM@0600 PO 02/16/25 06:00 02/18/25 05:24 50 MCG Amlodipine Besylate 10 mg DAILY PO 02/16/25 10:00 02/17/25 09:50 10 MG Propranolol HCl 20 mg BID PO 02/15/25 22:00 02/17/25 21:09 20 MG Ondansetron HCl 4 mg Q4HP PRN IV 02/15/25 19:45 Acetaminophen 650 mg Q6HP PRN PO 02/15/25 19:45 02/17/25 09:50 650 MG Lorazepam 1 mg ONCE PRN IV 02/18/25 00:00 Laboratory Results Laboratory Tests 02/15/25 17:35 HgA1c, TSH Test 02/17/25 18:24 Thyroid Stimulating Hormone (TSH) 0.01 uIU/mL (0.55-4.78) L Urinalysis Test 02/18/25 05:38 Urine Color Yellow (Yellow) Urine Clarity Clear (Clear) Urine pH 6.5 (5.0-9.0) Urine Specific [place] 1.013 (1.001-1.035) Urine Protein Negative (Negative) Urine Ketones Negative (Negative) Urine Blood Negative /uL (Negative) Urine Nitrite Negative (Negative) Urine Bilirubin Negative (Negative) Urine Urobilinogen 4 mg/dL (Negative) H Urine Leukocyte Esterase 1+ /uL (Negative) Urine RBC 1 /hpf (0 - 4) Urine Microscopic WBC 3 /HPF (0-5) Urine Squamous Epithelial Cells Few /hpf (<5) Urine Transitional Epithelial Cells Few /hpf (<2) Urine Bacteria None seen /hpf (None Seen) Urine Glucose Normal mg/dL (Normal) Assessment/Plan Assessment/Plan 74-year-old female who initially came into the hospital with toe swelling bilateral lower extremity deep vein, October weakness and forgetfulness found to have 1. 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 Hypothyroidism 3. Generalized weakness 4. Failure to thrive 5. Hypertension -check TSH free T4 free T3, thyroid ultrasound, Neurology consultation. -follow up MRI brain, discharge plan. Plan discussed with: Other My Orders Orders - RAMÍREZ OCHOA MD Procedure Category Date Status Time Free T3 LAB 02/17/25 In Process 17:08 Free T4 (Free LAB 02/17/25 In Process Thyroxine) 17:08 Thyroid US 02/17/25 Resulted 17:08 * Neurology Consult CONS 02/17/25 Transmitted 17:09 Date of Service: Feb 18, 2025 Billing Provider: RAMÍREZ OCHOA MD Common Visit Codes: 97691-[id number] INP/OBS CARE(HIGH) RAMÍREZ OCHOA MD Feb 18, 2025 16:30
--- NOTE | 2025-02-18 20:28 | DVHEEG2 ---
Neurology EEG Procedural Note Procedural Note EXAM DATE: 02/18/2025 REFERRING DOCTOR: Dr. Martinez TECHNIQUE: Eighteen channels of EEG, 2 channels of EOG, and 1 channel of EKG were recorded using the International 10/20 system. CLINICAL DATA: The patient was referred for an EEG evaluation for the evidence of seizure disorder. MEDICATIONS: See the chart BACKGROUND ACTIVITY: While the patient was awake, the background activity consisted of well regulated 8 Hz rhythmic waveforms, symmetrically distributed over both posterior quadrants and was reactive to eye opening. ACTIVATION: Hyperventilation: Not seen Photic Stimulation: No photic convulsive response Sleep: Noticed IMPRESSION: This is a normal EEG. No focal, lateralized, or epileptiform features are noted. If clinically indicated to rule out a seizure disorder, recommend repeat EEG with sleep deprivation. The EKG channel showed a regular heart rate of 62 per minute. [place] [address] TED MARTINEZ MD Feb 18, 2025 20:28
--- NOTE | 2025-02-18 21:56 | DVHPN2 ---
Progress Note - Dictate Date Seen: Feb 18, 2025 Medical Necessity Reason Pt with a Central, PICC or Fol: No Subjective Ms. Rosenberg is a 74 years old not sure left-handed female with a history of hypothyroidism, hypertension, polycystic ovarian syndrome, UTI, dementia, she was brought to the [facility] with a chief complaint of confusion. I have seen and examined the patient, I have talked to her nurse, she is doing fine, he remembers me, oriented to person, place, she knows year, Against she reports that she lives alone, she does shopping herself, she has no family Social service on case Urinalysis, 02/18/2025: WBC: 3, urine leukocyte esterase: 1+ CBC, 02/15/2025: Unremarkable BNP, 02/15/2025: Unremarkable TBI/AST/ALT/AP, 01/29/2025: 2.4/72/96/ Vitamin B12, 05/2022: 531 Folic acid, 05/2022: 11.2 TSH, 02/17/25: 0.01 EEG, 02/18/2025: Normal MRI head, 02/18/2025: No MR evidence of an acute intracranial abnormality vital signs Vital Sign Date Time Temp Pulse Resp B/P (MAP) Pulse Ox O2 Delivery O2 Flow Rate FiO2 02/18/25 21:35 78 131/74 02/18/25 20:00 20 97 Room Air* 0 21 02/18/25 16:51 97.8 97.8 Total Intake and Output 02/17/25 02/17/25 02/18/25 15:00 23:00 07:00 Intake Total 1200 ml 1050 ml Balance 1200 ml 1050 ml medications Current Medications Medications Dose Ordered Sig/Lisa Route Start Time Stop Time Status Last Admin Dose Admin Gabapentin 100 mg BID PO 02/15/25 22:00 02/18/25 21:31 100 MG Levothyroxine Sodium 50 mcg QAM@0600 PO 02/16/25 06:00 02/18/25 05:24 50 MCG Amlodipine Besylate 10 mg DAILY PO 02/16/25 10:00 02/17/25 09:50 10 MG Propranolol HCl 20 mg BID PO 02/15/25 22:00 02/18/25 21:35 20 MG Ondansetron HCl 4 mg Q4HP PRN IV 02/15/25 19:45 Acetaminophen 650 mg Q6HP PRN PO 02/15/25 19:45 02/18/25 21:43 650 MG Lorazepam 1 mg ONCE PRN IV 02/18/25 00:00 objective General: the patient is well developed and nourished. No acute distress. MENTAL STATUS: Awake and alert. Oriented to person, place, she has been year, socially appropriate SPEECH, LANGUAGE, HIGHER CORTICAL FUNCTION: no aphasia or dysathria. CRANIAL NERVES: Pupils are equal, round and reactive. EOMs full and conjugate. No nystagmus. Facial sensation intact in all three divisions bilaterally. Mandibular strength intact. Facial muscles symmetrical and strength intact. Tongue midline. No fasciculations or atrophy. SENSATION: Sensation to touch and pinprick is normal. MOTOR: Normal tone in the upper and lower extremity. Normal muscle bulk. No fasciculations. No abnormal movements or posturing. Muscle strength of the major groups in the extremities is 5/5. REFLEXES: Deep tendon reflexes normal and symmetrical. No pathological reflexes. CEREBELLAR/COORDINATION: Finger to nose and heel to díaz are normal bilaterally. GAIT/STATION: deferred laboratory and microbiology Laboratory Tests 02/15/25 17:35 Test 02/15/25 17:35 Range/Units Serum Glucose 85 74-106 mg/dL Problem List Cognitive dysfunction Alzheimer disease MCI Other etiology Assessment/Plan Monitoring Supportive treatment Urinalysis Vitamin B12, folic acid, Up to chair Physical therapy Social service on case More recommendation per clinical course This medical document was created using an electronic medical record system with [employer] computerized dictation system. Although this document has been carefully reviewed, there may still be some phonetic and typographical errors. These areas are purely typographical due to imperfections of the software programs, and do not reflect any compromise in the patient's medical care. Prognosis poor Dietary Evaluation Review Comments: 1. Pureed Cardiac diet and accommodate her likes: tomato soup 2. ensure HP 240ml PO supplements BID in cho or valnilla flavors 3. F/U in 2-3 days Expected Outcomes/Goals: Increased PO intakes, gradual weight gain and improved overall health condition. Plan discussed with: Patient, Other Total Time (mins): 35 TED MARTINEZ MD Feb 18, 2025 21:56
[2025-02-19 01:00] VITALS: BP 120/64; PULSE 78; RESP 17; TEMP 98.6; O2SAT 98
[2025-02-19 05:00] VITALS: BP 123/66; PULSE 68; RESP 17; TEMP 98; O2SAT 100
[2025-02-19 10:26] LABS: Free T3 2.92 pg/mL (2.3-4.2)
[2025-02-19 10:28] LABS: Free T4 (Free Thyroxine) 1.24 ng/dL (0.89-1.76)
--- NOTE | 2025-02-19 16:59 | DVHDS2 ---
Discharge Summary Date of Admission Feb 15, 2025 at 19:45 Date of Discharge: Feb 19, 2025 Labs/Diagnostic Data: Laboratory Results Test 02/18/25 05:38 02/18/25 05:36 02/17/25 18:24 02/15/25 17:35 Urine Color Yellow (Yellow) Urine Clarity Clear (Clear) Urine pH 6.5 (5.0-9.0) Urine Specific [place] 1.013 (1.001-1.035) Urine Protein Negative (Negative) Urine Ketones Negative (Negative) Urine Blood Negative /uL (Negative) Urine Nitrite Negative (Negative) Urine Bilirubin Negative (Negative) Urine Urobilinogen 4 mg/dL (Negative) Urine Leukocyte Esterase 1+ /uL (Negative) Urine RBC 1 /hpf (0 - 4) Urine Microscopic WBC 3 /HPF (0-5) Urine Squamous Epithelial Cells Few /hpf (<5) Urine Transitional Epithelial Cells Few /hpf (<2) Urine Bacteria None seen /hpf (None Seen) Urine Glucose Normal mg/dL (Normal) Vitamin B12 Level 633 pg/mL (211-911) Folic Acid 11.71 ng/mL (>5.38) Thyroid Stimulating Hormone (TSH) 0.01 uIU/mL (0.55-4.78) Free Thyroxine (T4) Calculated 1.24 ng/dL (0.89-1.76) Free Triiodothyronine (T3) pg/mL 2.92 pg/mL (2.3-4.2) White Blood Count 7.3 10^3/uL (4.4-10.8) Red Blood Count 5.08 10^6/uL (4.0-5.20) Hemoglobin 15.1 g/dL (12.2-16.2) Hematocrit 44.7 % (36.0-46.0) Mean Corpuscular Volume 88.0 fL (80.0-100.0) Mean Corpuscular Hemoglobin 29.7 pg (28.0-32.0) Mean Corpuscular Hemoglobin Concent 33.7 g/dL (32.0-36.0) Red Cell Distribution Width 13.2 % (11.8-14.3) Platelet Count 174 10^3/uL (140-450) Mean Platelet Volume 9.7 fL (6.9-10.8) Neutrophils (%) (Auto) 56.6 % (37.0-80.0) Lymphocytes (%) (Auto) 28.4 % (10.0-50.0) Monocytes (%) (Auto) 10.1 % (0.0-12.0) Eosinophils (%) (Auto) 4.0 % (0.0-7.0) Basophils (%) (Auto) 0.9 % (0.0-2.0) Neutrophils # (Auto) 4.1 10 ^3/uL (1.6-8.6) Lymphocytes # (Auto) 2.1 10 ^3/uL (0.4-5.4) Monocytes # (Auto) 0.7 10 ^3/uL (0-1.3) Eosinophils # (Auto) 0.3 10 ^3/uL (0-0.8) Basophils # (Auto) 0.1 10 ^3/uL (0-0.2) Nucleated Red Blood Cells 0.1 % Sodium Level 145 mmol/L (136-145) Potassium Level 4.6 mmol/L (3.5-5.1) Chloride Level 108 mmol/L (98-107) Carbon Dioxide Level 30 mmol/L (20-31) Anion Gap 7 (5-15) Blood Urea Nitrogen < 5 mg/dL (9-23) Creatinine 0.66 mg/dL (0.550-1.02) Glomerular Filtration Rate Calc 93 mL/min (>90) BUN/Creatinine Ratio 7.6 (10.0-20.0) Serum Glucose 85 mg/dL (74-106) Calcium Level 9.6 mg/dL (8.7-10.4) Other Laboratory Tests 02/15/25 17:35 Brief Hx & Hospital Course: 74-year-old female who initially came into the hospital with forgetfulness with the episodes of recent memory losses. Patient does have known history of hypothyroidism. Patient was also having failure to thrive. 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 Neurology was seeing the patient. Patient's eloped without notifying with the nursing staff before completion of workup and treatment. Condition at Discharge: Undetermined Final Diagnosis/Problems List 74-year-old female who initially came into the hospital with toe swelling bilateral lower extremity deep vein, [place] weakness and forgetfulness found to have 1. 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 Hypothyroidism 3. Generalized weakness 4. Failure to thrive 5. Hypertension Discharge Disposition: Eloped SNF Discharge Will this Physician continue t: No Discharge Instruct/Medications Scheduled Hctz (Hydrochlorothiazide), 12.5 MG PO DAILY Levothyroxine Sodium (Synthroid Tablet), 1.5 TAB PO DAILY Propranolol Hcl (Inderal La), 20 MG PO TID, (Reported) Miscellaneous Medications Hydrocodone-Acetaminophen (Hydrocodone/Acetaminophen), 1 TAB PO, (Reported) Discharge Statement: "Patient was advised to return to the ER or call 911 if any headaches, dizziness, shortness of breath, chest pain, abdominal pain, bleeding, fevers, or worsening of medical condition. Patient was counseled about treatment plan, medications, possible side effects, patientverbalized understanding. All questions were answered to the best of my ability. This discharge took greater then 30 minutes in planning, reviewing documentation, counseling the patient, and discussing with other team members." ASSESSMENT ASSESSMENT Assessment Date of Service: Feb 19, 2025 Billing Provider: RAMÍREZ OCHOA MD Common Visit Codes: 19158-KDC/OBS DISCH DAY <30MIN, 94169-NSX/OBS DISCH DAY >30min RAMÍREZ OCHOA MD Feb 19, 2025 16:59
== END 2025-02-19 08:00 | disposition left against medical advice (07) | DRG 640 ==
LOC: ER 16:12 → OVERFLOW 19:45 → WEST WING 21:45
PROVIDERS: ADMIT Internal Medicine; ATTEND Internal Medicine
DX: R62.7 Adult failure to thrive (principal); G93.41 Metabolic encephalopathy; E03.9 Hypothyroidism, unspecified; I10 Essential (primary) hypertension; G30.9 Alzheimer's disease, unspecified; Z68.1 Body mass index [BMI] 19.9 or less, adult; F02.80 Dementia in other diseases classified elsewhere, unspecified severity, without behavioral disturbance, psychotic disturbance, mood disturbance, and anxiety; Z90.710 Acquired absence of both cervix and uterus; Z88.1 Allergy status to other antibiotic agents; Z82.49 Family history of ischemic heart disease and other diseases of the circulatory system; Z88.0 Allergy status to penicillin; Z90.49 Acquired absence of other specified parts of digestive tract
CPT/HCPCS: 36415; 70551; 71045; 76536; 80048; 81001; 82607; 82746; 84439; 84443; 84481; 85025; 87081; 95819; G0378